=== PATIENT | female | born 1965 | race Caucasian/White ===

== ENCOUNTER 2021-01-10 21:48 | Inpatient (IN) ==
[~2021-01-10 21:48] MED LIST: SODIUM CHLORIDE 0.9% 1000ML 1,000 ML IV SCH
[2021-01-10] MEDS ORDERED: MIDAZOLAM HCL 1 MG/ML 2ML VIAL ONE (21:53)
[2021-01-10] MEDS ORDERED: HEPARIN (PORCINE) 1000 UNIT/ML 10 ML (CATH LAB USE ONLY) ONE ×2 (21:53→22:32)
[2021-01-10] MEDS ORDERED: niCARdipine HCL INJ 2.5 MG/ML 10 ML AMP ONE (21:53)
[2021-01-10] MEDS ORDERED: fentaNYL citrate 100 MCG/2 ML VIAL ONE ×2 (21:53)
[2021-01-10] MEDS ORDERED: NITROGLYCERIN/D5W 100MCG/ML 20ML SYR ONE (21:53)
[2021-01-10] MEDS ORDERED: fentaNYL citrate 100 MCG/2 ML VIAL IV STA (21:54)
[2021-01-10] MEDS ORDERED: SODIUM CHLORIDE 0.9% 1000ML 1,000 ML IV ONE (21:54)
[2021-01-10] MEDS ORDERED: DOPamine 400MG / 250ML D5W (Cath Lab Use ONLY) ONE (22:07)
[2021-01-10] MEDS ORDERED: ATROPINE SULFATE 0.1 MG/ML 10ML SYR IV ONE (22:07)
--- NOTE | 2021-01-10 22:08 | Pre Anesthesia Assessment ---
Date of Service January 10, 2021 Pre Sedation Assessment Vital Signs Temp Pulse Resp BP Pulse Ox 01/10/21 21:54 97.5 F L 44 L 18 98/76 L 100 Cardiovascular RRR, no murmur, no edema Respiratory normal respiratory effort, lungs clear to auscultation Pre-Sedation Airway Assessment Smoking Status: Current every day smoker Hx Sleep Apnea: No Hx Difficult Intubation: No Short, Thick Neck: No Thyromental Distance: > or= 3.5 Finger Breadths Oral Cavity: + WNL Mallampati Class: III ASA: ASA3 Procedure Planning Contraindications for Sedation: none Current Medications Reviewed: Yes Notes The planned sedation has been discussed with the patient. Informed Consent was obtained. I have identified the patient, determined the appropriateness of sedation and have assessed the patient immediately prior to the procedure. All medicine(s) and interventions are by my order.
[2021-01-10 22:10] LABS: Basophils # (auto) 0.02 K/uL (0-0.2); Basophils % (auto) 0.2 %; Eosinophils % (auto) 1.1 %; Hematocrit (blood only) 35.4 % (37-47); Hemoglobin 11.7 g/dL (12.0-16.0); Immature Granulocytes # (auto) 0.02 K/uL (0.00-0.02); Immature Granulocytes % (auto) 0.2 %; Lymphocytes # (auto) 2.99 K/uL (1.2-3.4); Lymphocytes % (auto) 32.5 %; Mean Corpuscular Hgb Conc 33.1 g/dL (32-36); Mean Corpuscular Volume 96.7 fL (80-100); Mean Platelet Volume 9.6 fL (7.4-10.4); Monocytes # (auto) 0.88 K/uL (0.11-0.59); Monocytes % (auto) 9.6 %; Neutrophils % (auto) 56.4 %; Platelet Count 204 K/uL (130-400); RDW Coefficient of Variation 13.6 % (11.5-14.5); RDW Standard Deviation 48.1 fL (36.4-46.3); Red Blood Count 3.66 M/uL (4.2-5.4); White Blood Count 9.21 K/uL (4.8-10.8)
[2021-01-10 22:11] LABS: iSTAT Creatinine 0.7 mg/dl (0.6-1.3); iSTAT Hemoglobin 11.9 g/dl (12.0-16.0); iSTAT Ionized Calcium 1.22 mmol/l (1.12-1.32); iSTAT Potassium 3.6 mmol/L (3.3-5.0)
--- NOTE | 2021-01-10 22:11 | Cardiology Consultation ---
Date of Consultation January 10, 2021 Assessment & Plan (1) ACS (acute coronary syndrome): Presentation consistent with inferior STEMI and recommend proceeding with emergent cardiac catheterization and likely primary PCI. No apparent contraindications to procedure. Discussed risks, benefits, alternatives of procedure with patient and they are willing to proceed. Further recommendations pending findings of coronary angiography. History of Present Illness History of Present Illness 55-year-old woman here with acute chest pain and ECG concerning for acute PA. Patient seen emergently in the ED after heart alert activated en route. No prior cardiac history. Cardiac risk factors include dyslipidemia, hypertension, ongoing tobacco abuse. Other medical issues include GERD, neuropathic pain. Reports feeling unwell for short periods of time over the last several nights. Tonight approximately 2 hours prior to presentation developed chest pain, diaphoresis, nausea, headache and generally feeling unwell. ECG with EMS showed sinus bradycardia with inferior ST elevations. When seen in the ED, EKG continue to show inferior ST elevations. Hemodynamically stable but bradycardic to the 40s. In severe pain with difficulty answering questions after fentanyl. Allergies Allergy/AdvReac Type Severity Reaction Status Date / Time [id number] Allergy Mild Uncoded 04/10/06 15:39 Home Medications Medication Instructions Recorded Confirmed Type amlodipine 10 mg PO DAILY 01/10/21 01/10/21 History duloxetine 60 mg PO BID 01/10/21 01/10/21 History gabapentin 300 mg PO TID 01/10/21 01/10/21 History methocarbamol 750 mg PO TID PRN 01/10/21 01/10/21 History oxycodone-acetaminophen 1 tab PO TID PRN 01/10/21 01/10/21 History pantoprazole 40 mg PO DAILY 01/10/21 01/10/21 History rosuvastatin 20 mg PO DAILY 01/10/21 01/10/21 History sumatriptan succinate 100 mg PO BID PRN 01/10/21 01/10/21 History tizanidine 4 mg PO TID PRN 01/10/21 01/10/21 History Patient History Social History Smoking Status: Current every day smoker Feels Safe at Home: Yes Review of Systems Review of Systems: Unable to obtain the setting of emergent situation Physical Exam Physical Exam: General: Uncomfortable HEENT: Sclerae anicteric Lungs: Clear to auscultation Cardiac: Regular rate Abdomen: Soft, nontender Extremities: Warm, well perfused, no edema. 2+ radial pulses Neuro: Nonfocal Psych: Alert orient x3, normal affect and mood Results & Data ([facility]) Vital Signs (Past 12 Hours) Vital Signs Temp Pulse Resp BP Pulse Ox 01/10/21 21:54 97.5 F L 44 L 18 98/76 L 100 PG Care Time/CCT Total # of Minutes Spent Total Time Spent with Patient: Total time spent is greater than 50% in coordination of care (as documented) at patient's floor/unit and/or counseling patient: Coding Level of Care Code 64472 Inpt Consult Level 5 Diagnoses ACS (acute coronary syndrome) I24.9
[2021-01-10 22:22] LABS: Partial Thromboplastin Ratio 0.8; Partial Thromboplastin Time 22.1 Seconds (21.0-31.0); Prothrombin Time 9.8 Seconds (9.0-12.0)
[2021-01-10 22:28] LABS: Alanine Aminotransferase 47 U/L (12-78); Albumin Level 3.4 gm/dl (3.4-5.0); Aspartate Aminotransferase 39 U/L (15-37); Blood Urea Nitrogen 15 mg/dl (7-18); Calcium 8.8 mg/dl (8.5-10.1); Carbon Dioxide 28 mmol/L (21-32); Chloride 107 mmol/L (98-107); Creatinine Clr Calc Pharmacy 93.9 ml/min; Est GFR (African American) 109.6; Est GFR (Non-African American) 94.6; Glucose 148 mg/dl (70-99); Lipase 54 U/L (73-393); Magnesium 2.3 mg/dl (1.8-2.4); Potassium 3.6 mmol/L (3.5-5.1); Sodium 141 mmol/L (136-145)
[2021-01-10 22:39] LABS: Albumin Globulin Ratio 1.2 (0.9-2); Alkaline Phosphatase 108 U/L (45-117); Bilirubin,Total 0.3 mg/dl (0.2-1); Creatine Kinase 88 U/L (26-192); Creatine Kinase MB 1.3 ng/ml (0.5-3.6); Globulin 2.8 gm/dl (2.5-4.0); Total Protein 6.2 gm/dl (6.4-8.2); Troponin I < 0.015 ng/ml (0-0.045)
[2021-01-10] MEDS ORDERED: TICAGRELOR 90 MG TAB PO ONE (22:40)
[2021-01-10] MEDS ORDERED: ONDANSETRON INJ 2 MG/ML 2 ML VIAL IV PRN (22:51)
[2021-01-10] MEDS ORDERED: ACETAMINOPHEN 325 MG TAB PO PRN (22:51)
[2021-01-10 22:53] LABS: T4 Free Thyroxine 0.74 ng/dl (0.8-1.6)
[2021-01-10] MEDS ORDERED: ICU PROTOCOL FOR HYPERGLYCEMIA PRN (22:56)
[2021-01-10] MEDS ORDERED: SODIUM CHLORIDE 0.9% 1000ML 1,000 ML IV SCH (23:00)
--- NOTE | 2021-01-10 23:02 | Post Anesthesia Assessment ---
Date of Service January 10, 2021 Post Sedation Assessment Vital Signs Temp Pulse Resp BP Pulse Ox 01/10/21 21:54 97.5 F L 44 L 18 98/76 L 100 Recovery Score Activity: Moves 4 extremities Respiration: Deep Breath/Cough Circulation: +/-20% PreAnes Value Consciousness: Fully Awake Oxygen Saturation: O2 needed for >90% Discharge Sedation Level of Care: Fast Track Phase II Post Sedation Plan On clinical assessment, the patient appears to have tolerated the sedation without complications. Patient is recovering as anticipated. Patient will continue to be monitored by nursing and may be discharged when sedation discharge criteria are met per below protocol. Upon Completions of procedure up to 15 minutes continue every 5 minute vital signs and the P.A.R. score; then discharge to a Phase I or Fast Track to Phase II per the following guidelines: * Discharge Patient to appropriate Phase II area if PAR is 8 or greater or return to pre- procedure baseline. The post - procedure orders will be as directed. * If PAR score is less than 8 or not return to pre-procedure baseline then patient will follow Phase I monitoring till PAR is reached for Phase II. The Phase I may be done in procedure room or may call to secure a Phase I area. * If naloxone or flumazenil are used for reversal, hold in Phase I for continued monitoring from when last reversal dose was given for a minimum of 60 minutes or longer pending the nurse and/or physician discretion of patient condition before discharge to Phase II. Please call the Sedation Physician to re-evaluate and complete post-note for discharge to Phase II area. Do NOT discharge from procedure sedation or Phase 1 until post- sedation evaluation note is complete by procedure /sedation MD Sedation Discharge Instructions to be given to the patient at discharge to home.
[2021-01-10 23:14] LABS: Influenza A virus by PCR Negative (Neg); Influenza B virus by PCR Negative (Neg); RSV by PCR Negative (Neg); SARS CoV2 RNA(COVID-19) InHosp NEGATIVE (Negative)
--- NOTE | 2021-01-10 23:16 | Cardiac Catheterization ---
[facility] Data: Plasterer Spray Gun Cardiac Status Clinical evaluation leading to the procedure CAD Presenation: STEMI Anginal Classification: CCS IV Heart Failure: No Cardiogenic Shock within 24 Hours: No Cardiac Arrest within 24 Hours: No Imaging Studies Past 6 Months: No Stress Studies Past 6 Months: No Diagnostic Physicians Name: Frank Merino MD Status: Emergency Closure Device Percutaneous Entry Location: Radial Closure Device: Radial Band Recommendations: PCI without planned CABG PCI Indication: Immediate PCI for STEMI First Noted: First EKG Lesion Segment Name: Mid RCA Culprit Artery: Yes Stenosis Prior to Rx (%): 99 Chronic Total Occlusion: No IVUS: No FFR: No Pre-Procedure THOMAS Flow: 3 Previously Treated Lesion: No Lesion Complexity: Non-High/Non-C Lesion Length (mm): 15 Thrombus Present: Yes Bifurcation Lesion: No Guidewire Across Lesion: Stenosis Post-Procedure (%): 0 Post-Procedure THOMAS Flow: 3 Devices(s) Deployed: Yes Yes Intraprocedure Events Significant Disection: No Perforation: No Cardiac Cath Procedure Full Procedure Date January 10, 2021 Pre-Procedure Diagnosis Pre-Procedure Diagnosis: STEMI AUC Score AUC Score: 9 Post-Procedure Diagnosis Post-Procedure Diagnosis: Severe CAD, Successful PCI and Normal Intracardiac Pressures Procedure(s) Performed Procedure(s) Performed: Coronary Angiography, Left Heart Cath and Drug Eluting Stent [employer] Defense Control Officer Frank Merino MD In Class Special Education Teacher(s) Jennifer Estimated Blood Loss Estimated Blood Loss: 10 Medication(s) Medication(s): Atropine, Fentanyl, Heparin, Hydralazine, Lidocaine 1%, Nicardipine and Versed Medication(s): Ticagrelor Summary of Findings Indication: STEMI/Heart Alert Access: 6 Fr right radial artery Catheters: Godfrey, JL 3.5 guide Findings: LM -medium caliber, mildly calcified, no significant disease LAD -medium caliber, heavily calcified proximally, 60 to 70% ostial, 30% diffuse proximal disease, 50% mid segment disease after takeoff of D2, distal vessel small and tapers to apex. Medium caliber D2 with 70% ostial stenosis. Circumflex -medium caliber calcified, diffuse 50% mid segment disease. Gives of a single medium caliber OM with no significant disease. RCA -dominant, medium caliber, heavily calcified, 99% acute mid RCA stenosis, 30% diffuse latemid disease, 40 to 50% right posterior AV branch. PDA with 30% ostial stenosis. LVEDP -17 -- PCI -- Antithrombotic therapy: Heparin, ticagrelor Procedure: RCA cannulated with JR4 guide Nipple Machine Operator 50 wire passed across lesion into distal vessel Mid RCA lesion predilated with 2.5 compliant balloon Dilated lesion stented with 3.0 x 26 mm Costa drug-eluting Stent post-dilated with 3.5 noncompliant balloon IC vasodilators administered for spasm Post procedure THOMAS 3 flow, stent well expanded with minimal residual stenosis and no apparent cardiac complications. Arterial Closure: TR band Summary: 1. Inferior STEMI -- 99% acute mid RCA 2. Moderate to severe non-culprit coronary artery disease -60 to 70% ostial LAD, 50% mid LAD, 70% ostial D2 50% mid circumflex 40% R-PAV branch 3. Normal intracardiac filling pressure 4. Successful PCI of mid RCA with single drug-eluting stent (3.0 x 26 mm Costa; postdilated with 3.5 NC). Recommendations: Admit to ICU for continued monitoring Loaded with ticagrelor 180 mg in Plasterer Spray Gun Continue dual-antiplatelet therapy for at least 1 year. Trend troponins until peak, Check Echo Uptitrate beta-arina/CLAIRE as BP allows High-dose statin Consult cardiac Rehab Smoking cessation Plan to medically manage heavily calcified ostial LAD disease unless refractory anginal symptoms. Hemodynamics Rest Ao:: 141/83/100 Final Ao: 138/79/104 LV: 145/17 Recommendations Recommendations: PCI without planned CABG Specimens Specimens: None Radiation Exposure (mGy) 760 Contrast (mls) 90 Fluids (cc crystalloids) Fluids (cc crystalloids): 60 Drains Drains: None Anesthesia Moderate [id number] Procedural Complication(s) None Disposition ICU I attest to the content of the Intraoperative Record and any orders documented therein. Any exceptions are noted below. [facility] Card Cath Procedure Codes Cardiac Catheterization Procedure 1: Cardiovascular Cath Procedures: 85620 Coronaries and LHC (+/-LV) Moderate Sedation Procedure 1: Sedation/Anesthesia: 08408 Mod Sedation by the same physician;Init15 Min Child Age 5 & Up Stenting Procedure 1: Cardiovascular Stent Procedures: 15019 Perc transluminal revascularization of acute sub/total occl, aMI PG Care Time/CCT Total # of Minutes Spent Total Time Spent with Patient: Total time spent is greater than 50% in coordination of care (as documented) at patient's floor/unit and/or counseling patient:
--- NOTE | 2021-01-10 23:23 | Critical Care Consultation ---
Date of Consultation January 10, 2021 Assessment & Plan (1) ACS (acute coronary syndrome): Impression: 55-year-old female presents to the ICU following inferior STEMI with 99% occlusion of the RCA, now status post PCI x1 with PCI to the RCA Neuro - Neuropathycontinue home meds Cardiac - Inferior STEMIstatus post PCI x1 with JETT to the RCA. Moderate to severe nonculprit coronary artery disease noted on cath report -Loaded with ticagrelor 580 mg in Office Clin Asst -Currently hemodynamically stable without need for vasopressors -Continue ASA, Brilinta, MTP, lisinopril, statin regimens -Trend troponins for peak -Follow-up echo in a.m. -EKG in a.m. -Nitro as needed -Continuous monitoring on telemetry Respiratory - Tobacco abusepatient claims to smoke 5 to 10 cigarettes/day since she was 13 years old, encouraged cessation -No diagnosed history of COPD -Currently maintaining oxygen saturation on room air without difficulty -Continuous monitoring pulse ox GI - GERD?Continue home regimen pantoprazole daily Heart healthy diet RENAL/LYTES - Creatinine within normal limits, monitor electrolytes and replete as indicated. Monitor routine BMPs - Strict I's and O's ENDO - No history of diabetes, A1c pending. ICU hyperglycemic protocol Hypothyroidpatient presents with elevated TSH and low T4. No previous history of hypothyroid. Will likely need start on Synthroid HEME - H&H stable, monitor routine CBCs ID - No evidence of infectious at this time. Monitor fever curve LINES/IV ACCESS - Peripheral IVs DVT PROPHYLAXIS - SCDs Thank you for allowing us to participate in the care of this patient. Please refer to my attending physician's documentation for any further recommendations. (2) Chest pain: (3) Dyslipidemia: (4) Coronary artery disease: (5) Hypertension: (6) Neuropathy: History of Present Illness Attending Physician: Jame Barajas MD History of Present Illness 55-year-old female with PMH including hypertension, dyslipidemia, tobacco abuse, GERD, neuropathic pain. Patient states that she had not been feeling well for the past few days and approximately 2 hours prior to presentation to the ED she had developed chest pain with radiation to the left arm 10/10, diaphoresis, and headache. Patient called 911 and EKG in route revealed ST elevations. Heart alert was initiated in route. EKG showed inferior ST elevations and patient was bradycardic with heart rate in the 40s. She was taken to the Office Clin Asst where she was found to have 99% acute occlusion of the mid RCA, and was also noted to have moderate to severe nonculprit coronary artery disease in the LAD, mid circumflex, and RPAV branch. She received successful PCI of the mid RCA with a single drug-eluting stent. Patient is now transferred to the ICU for further monitoring post-cath. On exam, patient is alert and oriented and comfortable at rest. She denies any chest pain, shortness of breath, palpitations, further diaphoresis, nausea or vomiting. Patient states that she was having some numbness and tingling in her right hand but this is currently resolved. She denies headache or dizziness, recent fevers or illness, coughing or wheezing, abdominal pain, or swelling in hands and feet. Patient to remain in ICU for further management this time. Allergies Allergy/AdvReac Type Severity Reaction Status Date / Time [id number] Allergy Mild Uncoded 04/10/06 15:39 Home Medications Medication Instructions Recorded Confirmed Type amlodipine 10 mg PO DAILY 01/10/21 01/10/21 History duloxetine 60 mg PO BID 01/10/21 01/10/21 History gabapentin 300 mg PO TID 01/10/21 01/10/21 History methocarbamol 750 mg PO TID PRN 01/10/21 01/10/21 History oxycodone-acetaminophen 1 tab PO TID PRN 01/10/21 01/10/21 History pantoprazole 40 mg PO DAILY 01/10/21 01/10/21 History rosuvastatin 20 mg PO DAILY 01/10/21 01/10/21 History sumatriptan succinate 100 mg PO BID PRN 01/10/21 01/10/21 History tizanidine 4 mg PO TID PRN 01/10/21 01/10/21 History Patient History Medical History (Updated 01/11/21 @ 00:54 by Jame Flores) Dyslipidemia Hypertension Surgical History (Updated 01/11/21 @ 00:54 by Jame Flores) History of cholecystectomy History of hysterectomy Family History (Updated 01/11/21 @ 00:54 by Jame Flores) Other Hypertension Social History Smoking Status: Current every day smoker Cigarettes Per Day: 7; Do You Dip or Chew Tobacco: No; Tobacco Cessation Education Requested by Patient: Yes Hx Alcohol Use: No Hx Substance Use: No Preferred Language: Yakut Communication Ability: Effective Beliefs That Will Affect Care: None Current Living Situation: Spouse Other Information That Helps Us Care for You: No Feels Safe at Home: Yes Safety Concerns: Feels Safe At This Time Assistive Devices: Denture - Upper and Glasses Review of Systems Review of Systems: All systems reviewed & are unremarkable except as noted in HPI & below Physical Exam Constitutional: cooperative and comfortable Eyes: PERRL, conjunctivae normal, anicteric sclerae ENMT: external ear and nose normal, oropharynx normal Neck: trachea midline, no thyromegaly Respiratory: normal respiratory effort, lungs clear to auscultation Cardiovascular: RRR, no murmur, no edema Heart Sounds: normal S1 and normal S2 Vessels: no JVD Extremities: no edema Gastrointestinal (Abdomen): normal bowel sounds, soft, nontender, no hepatosplenomegaly Musculoskeletal: no cyanosis or clubbing, extremities motor strength 5/5 Skin: no rashes, warm and dry Neurologic: PERRL, EOMI, accommodation nl, no face palsy, no dysarthria Psychiatric: A+Ox3, euthymic affect Results & Data Results & Data ([facility]) Vital Signs (Past 12 Hours) Vital Signs Temp Pulse Resp BP Pulse Ox 01/10/21 23:11 36.5 C 01/10/21 21:54 36.4 C L 44 L 18 98/76 L 100 Coding Level of Care Code 68352 Inpt Consult Level 4 Diagnoses ACS (acute coronary syndrome) I24.9 Chest pain R07.9 Dyslipidemia E78.5 Coronary artery disease I25.10 Hypertension I10 Neuropathy G62.9
[2021-01-11] MEDS ORDERED: INFLUENZA ADMINISTRATION CHARGE ONE (00:09)
[2021-01-11] MEDS ORDERED: POTASSIUM CHLORIDE CRTAB 20 MEQ TABCR PO STA (00:45)
--- NOTE | 2021-01-11 00:47 | Emergency Department Note ---
History of Present Illness General Chief Complaint: Heart Alert History of Present Illness Provider Complaint: chest pain Onset (ago): hour(s) 2 Duration: constant Onset: during rest Pain Location: substernal Pain Radiation: none Severity: severe Maximum Pain Intensity: 10 Current Pain Intensity: 10 Quality: + heaviness Relieved By: + nothing Exacerbated By: + nothing Context: no recent illness, no recent surgery, no recent immobilization, no recent travel, no trauma/injury and no history of DVT/PE Associated symptoms: + diaphoresis and + dyspnea; no nausea, no vomiting, no palpitations, no fever and no leg swelling Home Medications Medication Instructions Recorded Confirmed Type amlodipine 10 mg PO DAILY 01/10/21 01/10/21 History duloxetine 60 mg PO BID 01/10/21 01/10/21 History gabapentin 300 mg PO TID 01/10/21 01/10/21 History methocarbamol 750 mg PO TID PRN 01/10/21 01/10/21 History oxycodone-acetaminophen 1 tab PO TID PRN 01/10/21 01/10/21 History pantoprazole 40 mg PO DAILY 01/10/21 01/10/21 History rosuvastatin 20 mg PO DAILY 01/10/21 01/10/21 History sumatriptan succinate 100 mg PO BID PRN 01/10/21 01/10/21 History tizanidine 4 mg PO TID PRN 01/10/21 01/10/21 History Allergies Allergy/AdvReac Type Severity Reaction Status Date / Time [id number] Allergy Mild Uncoded 04/10/06 15:39 Past Med/Surg History Medical History (Updated 01/11/21 @ 00:54 by Jame Flores) Dyslipidemia Hypertension Surgical History (Updated 01/11/21 @ 00:54 by Jame Flores) History of cholecystectomy History of hysterectomy Family History (Updated 01/11/21 @ 00:54 by Jame Flores) Other Hypertension Social History Smoking Status: Current every day smoker Cigarettes Per Day: 7; Do You Dip or Chew Tobacco: No; Tobacco Cessation Education Requested by Patient: Yes Hx Alcohol Use: No Hx Substance Use: No Preferred Language: [place] Communication Ability: Effective Beliefs That Will Affect Care: None Current Living Situation: Spouse Other Information That Helps Us Care for You: No Feels Safe at Home: Yes Safety Concerns: Feels Safe At This Time Assistive Devices: Denture - Upper and Glasses Review of Systems A total of 10 systems reviewed and were otherwise negative Physical Exam Vital Signs Vital Signs - 24 hr 01/10/21 21:54 01/10/21 22:01 01/10/21 22:02 Temperature 36.4 C L Temperature Source Oral Pulse Rate 44 L Respiratory Rate 18 Respiratory Effort / Characteristics Non-Labored Respiratory Depth Normal Blood Pressure 98/76 L Blood Pressure Mean 83 Pulse Oximetry 100 Oxygen Delivery Method Room Air Room Air Room Air Sepsis Recent Fever Within 48 Hours No Sepsis New/Unexplained Change in Mental Status No Sepsis Action Taken by Nursing No Action Required Physical Exam GENERAL: Distressed. HENT: Exam performed. -Head: Normocephalic and atraumatic. -Right Ear: External ear normal. No mastoid tenderness. -Left Ear: External ear normal. No mastoid tenderness. -Mouth/Throat: The oropharynx is clear and moist. No trismus in the jaw. No dental abscesses or uvula swelling. No oropharyngeal exudate or tonsillar abscesses. EYES: Conjunctivae and EOM are normal. Pupils are equal, round, and reactive to light. Right eye exhibits no discharge. Left eye exhibits no discharge. No scleral icterus. NECK: Normal range of motion. Neck supple. No JVD present. No spinous process tenderness present. No carotid bruit present. No rigidity. No tracheal deviation and normal range of motion present. No Brudzinski's sign and no Kernig's sign noted. CV: Bradycardic rate, regular rhythm, normal heart sounds and intact distal pulses. There is no peripheral edema. Palpable radial pulses bue. PULM/CHEST: Effort normal and breath sounds normal. No respiratory distress. No stridor. She has no wheezes. She has no rales. -Chest Wall: She exhibits no tenderness. ABD: The abdomen is soft. Bowel sounds are normal. She has no distension. No mass is present. There is no tenderness. There is no rebound, no guarding, no Oconnor's sign and no tenderness at McBurney's point. Rovsig negative MUSC/SKEL: Normal range of motion. There is no peripheral edema, tenderness or deformity. Course Course 2129: Call from EMS. 55-year-old female with chest pain. Prehospital EKG showed STEMI. Heart alert paged. 2150: The patient was evaluated in room B1. A complete history and physical exam was performed Cardiac monitoring: An order was placed for continuous cardiac monitoring. The monitor shows a rate of 40 with sinus rhythm 2205:Dr. Merino at bedside will take the patient to [facility]. Administered Medications Sodium Chloride (Nss 1000ml) 1,000 mls @ 100 mls/hr IV .Q10H ANNIE Stop: 01/11/21 06:29 Last Admin: 01/10/21 23:45 Dose: 100 mls/hr Documented by: [id number] Discontinued Medications Atropine Sulfate (Atropine Sulfate 0.1 Mg/Ml 10ml Syr) Confirm Administered Dose 1 mg IV .STK-MED ONE Stop: 01/10/21 22:08 Last Admin: 01/10/21 22:31 Dose: 0.5 mg Documented by: [id number] Dopamine HCl/Dextrose (Dopamine 400mg / 250ml D5w ([facility] Use Only)) Confirm Administered Dose 400 mg .ROUTE .STK-MED ONE Stop: 01/10/21 22:08 Last Admin: 01/10/21 22:31 Dose: Not Given Documented by: [id number] Fentanyl Citrate (Fentanyl Citrate 100 Mcg/2 Ml Vial) Confirm Administered Dose 100 mcg .ROUTE .STK-MED ONE Stop: 01/10/21 21:54 Last Admin: 01/10/21 22:36 Dose: 25 mcg Documented by: [id number] Fentanyl Citrate (Fentanyl Citrate 100 Mcg/2 Ml Vial) Confirm Administered Dose 100 mcg .ROUTE .STK-MED ONE Stop: 01/10/21 21:54 Last Admin: 01/10/21 22:36 Dose: Not Given Documented by: [id number] Fentanyl Citrate (Fentanyl Citrate 100 Mcg/2 Ml Vial) 50 mcg IV NOW STA Stop: 01/10/21 21:55 Last Admin: 01/10/21 23:45 Dose: Not Given Documented by: [id number] Heparin Sodium (Porcine) (Heparin (Porcine) 1000 Unit/Ml 10 Ml ([facility] Use Only)) Confirm Administered Dose 10,000 units .ROUTE .STK-MED ONE Stop: 01/10/21 21:54 Last Admin: 01/10/21 22:36 Dose: 10,000 units Documented by: [id number] Heparin Sodium (Porcine) (Heparin (Porcine) 1000 Unit/Ml 10 Ml ([facility] Use Only)) Confirm Administered Dose 10,000 units .ROUTE .STK-MED ONE Stop: 01/10/21 22:33 Last Admin: 01/10/21 22:37 Dose: 1,000 units Documented by: [id number] Heparin Sodium/Sodium Chloride (Heparin In Nss Infusion 1000 Unit/500 Ml (2 U/Ml) Bag) Confirm Administered Dose 3,000 units IV .STK-MED ONE Stop: 01/10/21 21:54 Last Admin: 01/10/21 22:29 Dose: 3,000 units Documented by: [id number] Sodium Chloride (Nss 1000ml) 1,000 mls @ 999 mls/hr IV .Q1H1M ANNIE Stop: 01/10/21 22:45 Last Admin: 01/10/21 23:45 Dose: Not Given Documented by: [id number] Sodium Chloride (Nss 1000ml) 1,000 mls @ 999 mls/hr IV .Q1H1M ONE Stop: 01/10/21 22:54 Last Admin: 01/10/21 23:45 Dose: Not Given Documented by: [id number] Midazolam HCl (Midazolam Hcl 1 Mg/Ml 2ml Vial) Confirm Administered Dose 2 mg .ROUTE .STK-MED ONE Stop: 01/10/21 21:54 Last Admin: 01/10/21 22:37 Dose: Not Given Documented by: [id number] Nicardipine HCl (Nicardipine Hcl Inj 2.5 Mg/Ml 10 Ml Amp) Confirm Administered Dose 25 mg .ROUTE .STK-MED ONE Stop: 01/10/21 21:54 Last Admin: 01/10/21 22:29 Dose: 25 mg Documented by: [id number] Nitroglycerin/Dextrose (Nitroglycerin/D5w 100mcg/Ml 20ml Syr) Confirm Administered Dose 2,000 mcg .ROUTE .STK-MED ONE Stop: 01/10/21 21:54 Last Admin: 01/10/21 22:30 Dose: 2,000 mcg Documented by: [id number] Ticagrelor (Ticagrelor 90 Mg Tab) Confirm Administered Dose 180 mg PO .STK-MED ONE Stop: 01/10/21 22:41 Last Admin: 01/10/21 22:41 Dose: 180 mg Documented by: [id number] Medical Decision Making Laboratory Data Result diagrams: 01/10/21 21:56 01/10/21 21:56 Labs: Lab Results 01/10/21 01/10/21 01/10/21 Range/Units 21:52 21:52 21:56 WBC 9.21 (4.8-10.8) K/uL RBC 3.66 L (4.2-5.4) M/uL Hgb 11.7 L (12.0-16.0) g/dL POC Hgb (12.0-16.0) g/dl Hct 35.4 L (37-47) % POC Hct (37-47) % MCV 96.7 (80-100) fL MCH 32.0 (25-34) pg MCHC 33.1 (32-36) g/dL RDW Std Deviation 48.1 H (36.4-46.3) fL RDW Coeff of Evan 13.6 (11.5-14.5) % Plt Count 204 (130-400) K/uL MPV 9.6 (7.4-10.4) fL Immature Gran % (Auto) 0.2 % Neut % (Auto) 56.4 % Lymph % (Auto) 32.5 % [place] % (Auto) 9.6 % Eos % (Auto) 1.1 % Baso % (Auto) 0.2 % Neut # (Auto) 5.20 (1.4-6.5) K/uL Lymph # (Auto) 2.99 (1.2-3.4) K/uL [place] # (Auto) 0.88 H (0.11-0.59) K/uL Eos # (Auto) 0.10 (0-0.5) K/uL Baso # (Auto) 0.02 (0-0.2) K/uL Immature Gran # (Auto) 0.02 (0.00-0.02) K/uL PT (9.0-12.0) Seconds INR (0.9-1.1) APTT (21.0-31.0) Seconds PTT Ratio Activ Coag Time Kaolin (94-140) SECONDS POC Sodium (135-144) mmol/L Sodium (136-145) mmol/L POC Potassium (3.3-5.0) mmol/L Potassium (3.5-5.1) mmol/L POC Chloride (101-112) mmol/L Chloride (98-107) mmol/L Carbon Dioxide (21-32) mmol/L POC Total CO2 (24-31) mmol/L Anion Gap (3-11) POC Anion Gap (16-25) mmol/L POC BUN (7-18) mg/dl BUN (7-18) mg/dl Creatinine (0.6-1.2) mg/dl POC Creatinine (0.6-1.3) mg/dl Est Cr Clr Drug Dosing ml/min Est GFR ( Amer) Est GFR (Non-Af Amer) BUN/Creatinine Ratio (10-20) Glucose (70-99) mg/dl POC Glucose (other) (70-99) mg/dl Calcium (8.5-10.1) mg/dl POC Ioniz Calcium Brittany (1.12-1.32) mmol/l Magnesium (1.8-2.4) mg/dl Total Bilirubin (0.2-1) mg/dl AST (15-37) U/L ALT (12-78) U/L Alkaline Phosphatase (45-117) U/L Total Creatine Kinase (26-192) U/L CK-MB (CK-2) (0.5-3.6) ng/ml CK/CKMB % Calc (0-3.0) Troponin I (0-0.045) ng/ml Total Protein (6.4-8.2) gm/dl Albumin (3.4-5.0) gm/dl Globulin (2.5-4.0) gm/dl Albumin/Globulin Ratio (0.9-2) Lipase (73-393) U/L TSH (0.300-4.500) uIu/ml Free T4 (0.8-1.6) ng/dl COVID-19 Eval Order [facility]Rsv at [facility] SARS-CoV-2 (PCR) NEGATIVE (Negative) Influenza Type A (PCR) Negative (Neg) Influenza Type B (PCR) Negative (Neg) RSV (RT-PCR) Negative (Neg) 01/10/21 01/10/21 01/10/21 Range/Units 21:56 21:56 21:59 WBC (4.8-10.8) K/uL RBC (4.2-5.4) M/uL Hgb (12.0-16.0) g/dL POC Hgb 11.9 L (12.0-16.0) g/dl Hct (37-47) % POC Hct 35 L (37-47) % MCV (80-100) fL MCH (25-34) pg MCHC (32-36) g/dL RDW Std Deviation (36.4-46.3) fL RDW Coeff of Evan (11.5-14.5) % Plt Count (130-400) K/uL MPV (7.4-10.4) fL Immature Gran % (Auto) % Neut % (Auto) % Lymph % (Auto) % [place] % (Auto) % Eos % (Auto) % Baso % (Auto) % Neut # (Auto) (1.4-6.5) K/uL Lymph # (Auto) (1.2-3.4) K/uL [place] # (Auto) (0.11-0.59) K/uL Eos # (Auto) (0-0.5) K/uL Baso # (Auto) (0-0.2) K/uL Immature Gran # (Auto) (0.00-0.02) K/uL PT 9.8 (9.0-12.0) Seconds INR 1.0 (0.9-1.1) APTT 22.1 (21.0-31.0) Seconds PTT Ratio 0.8 Activ Coag Time Kaolin (94-140) SECONDS POC Sodium 140 (135-144) mmol/L Sodium 141 (136-145) mmol/L POC Potassium 3.6 (3.3-5.0) mmol/L Potassium 3.6 (3.5-5.1) mmol/L POC Chloride 103 (101-112) mmol/L Chloride 107 (98-107) mmol/L Carbon Dioxide 28 (21-32) mmol/L POC Total CO2 28 (24-31) mmol/L Anion Gap 5.0 (3-11) POC Anion Gap 14.0 L (16-25) mmol/L POC BUN 15 (7-18) mg/dl BUN 15 (7-18) mg/dl Creatinine 0.71 (0.6-1.2) mg/dl POC Creatinine 0.7 (0.6-1.3) mg/dl Est Cr Clr Drug Dosing 93.9 ml/min Est GFR ( Amer) 109.6 Est GFR (Non-Af Amer) 94.6 BUN/Creatinine Ratio 21.0 H (10-20) Glucose 148 H (70-99) mg/dl POC Glucose (other) 148 H (70-99) mg/dl Calcium 8.8 (8.5-10.1) mg/dl POC Ioniz Calcium Brittany 1.22 (1.12-1.32) mmol/l Magnesium 2.3 (1.8-2.4) mg/dl Total Bilirubin 0.3 (0.2-1) mg/dl AST 39 H (15-37) U/L ALT 47 (12-78) U/L Alkaline Phosphatase 108 (45-117) U/L Total Creatine Kinase 88 (26-192) U/L CK-MB (CK-2) 1.3 (0.5-3.6) ng/ml CK/CKMB % Calc 1.5 (0-3.0) Troponin I < 0.015 (0-0.045) ng/ml Total Protein 6.2 L (6.4-8.2) gm/dl Albumin 3.4 (3.4-5.0) gm/dl Globulin 2.8 (2.5-4.0) gm/dl Albumin/Globulin Ratio 1.2 (0.9-2) Lipase 54 L (73-393) U/L TSH 4.810 H (0.300-4.500) uIu/ml Free T4 0.74 L (0.8-1.6) ng/dl COVID-19 Eval Order SARS-CoV-2 (PCR) (Negative) Influenza Type A (PCR) (Neg) Influenza Type B (PCR) (Neg) RSV (RT-PCR) (Neg) 01/10/21 Range/Units 22:29 WBC (4.8-10.8) K/uL RBC (4.2-5.4) M/uL Hgb (12.0-16.0) g/dL POC Hgb (12.0-16.0) g/dl Hct (37-47) % POC Hct (37-47) % MCV (80-100) fL MCH (25-34) pg MCHC (32-36) g/dL RDW Std Deviation (36.4-46.3) fL RDW Coeff of Evan (11.5-14.5) % Plt Count (130-400) K/uL MPV (7.4-10.4) fL Immature Gran % (Auto) % Neut % (Auto) % Lymph % (Auto) % [place] % (Auto) % Eos % (Auto) % Baso % (Auto) % Neut # (Auto) (1.4-6.5) K/uL Lymph # (Auto) (1.2-3.4) K/uL [place] # (Auto) (0.11-0.59) K/uL Eos # (Auto) (0-0.5) K/uL Baso # (Auto) (0-0.2) K/uL Immature Gran # (Auto) (0.00-0.02) K/uL PT (9.0-12.0) Seconds INR (0.9-1.1) APTT (21.0-31.0) Seconds PTT Ratio Activ Coag Time Kaolin 219 H (94-140) SECONDS POC Sodium (135-144) mmol/L Sodium (136-145) mmol/L POC Potassium (3.3-5.0) mmol/L Potassium (3.5-5.1) mmol/L POC Chloride (101-112) mmol/L Chloride (98-107) mmol/L Carbon Dioxide (21-32) mmol/L POC Total CO2 (24-31) mmol/L Anion Gap (3-11) POC Anion Gap (16-25) mmol/L POC BUN (7-18) mg/dl BUN (7-18) mg/dl Creatinine (0.6-1.2) mg/dl POC Creatinine (0.6-1.3) mg/dl Est Cr Clr Drug Dosing ml/min Est GFR ( Amer) Est GFR (Non-Af Amer) BUN/Creatinine Ratio (10-20) Glucose (70-99) mg/dl POC Glucose (other) (70-99) mg/dl Calcium (8.5-10.1) mg/dl POC Ioniz Calcium Brittany (1.12-1.32) mmol/l Magnesium (1.8-2.4) mg/dl Total Bilirubin (0.2-1) mg/dl AST (15-37) U/L ALT (12-78) U/L Alkaline Phosphatase (45-117) U/L Total Creatine Kinase (26-192) U/L CK-MB (CK-2) (0.5-3.6) ng/ml CK/CKMB % Calc (0-3.0) Troponin I (0-0.045) ng/ml Total Protein (6.4-8.2) gm/dl Albumin (3.4-5.0) gm/dl Globulin (2.5-4.0) gm/dl Albumin/Globulin Ratio (0.9-2) Lipase (73-393) U/L TSH (0.300-4.500) uIu/ml Free T4 (0.8-1.6) ng/dl COVID-19 Eval Order SARS-CoV-2 (PCR) (Negative) Influenza Type A (PCR) (Neg) Influenza Type B (PCR) (Neg) RSV (RT-PCR) (Neg) ECG Data Indication: chest pain Rate (beats per minute): 44 Rhythm: normal sinus Findings: + ST depression (I, avL, V3-V6) and + ST elevation (II, III, avF); no prolonged QT MDM Narrative 0: Call from EMS. 55-year-old female with chest pain. Prehospital EKG showed STEMI. Heart alert paged. 2150: The patient was evaluated in room B1. A complete history and physical exam was performed Cardiac monitoring: An order was placed for continuous cardiac monitoring. The monitor shows a rate of 40 with sinus rhythm 2205:Dr. Merino at bedside will take the patient to [facility]. Impression & Plan ST elevation (STEMI) myocardial infarction Critical Care Time Critical Care Time: Yes Total Critical Care Time: 35 I have personally spent greater than 35 minutes of critical care time in the direct management of this patient. This includes bedside care, interpretation of diagnostic studies, and testing, discussion with consultants, patient, and family members, and other required patient management activities. This 35 minutes is in excess of all separately billable procedures. Discharge Plan Visit Data Chief Complaint: Heart Alert ED Provider: Jame Flores Discharge Problem: ST elevation (STEMI) myocardial infarction Patient Disposition: Admitted As Inpatient Discharge Instructions Interventions: ED Discharge Assessment Last Done: 01/10/21 22:02
[2021-01-11 01:32] LABS: Appearance Urine Clear (Clear); Bacteria Urine Automated Negative (Negative); Bilirubin Urine Negative (Negative); Blood Urine Trace (Negative); Color Urine Yellow; Glucose Urine UA Negative (Negative); Ketones Urine Negative (Negative); Leukocyte Esterase Urine Negative (Negative); Nitrite Urine Negative (Negative); Protein Urine Negative (Negative); Specific Gravity Urine 1.036 (1.000-1.030); Urobilinogen Urine Negative (Negative); pH Urine 7.5 (4.5-7.5)
[2021-01-11] MEDS: NITROGLYCERIN SL 0.4 MG/TAB TAB SL PRN ×3 (03:38→04:57)
[2021-01-11 04:49] LABS: Basophils # (auto) 0.02 K/uL (0-0.2); Basophils % (auto) 0.2 %; Eosinophils # (auto) 0.03 K/uL (0-0.5); Eosinophils % (auto) 0.4 %; Hematocrit (blood only) 37.3 % (37-47); Hemoglobin 12.3 g/dL (12.0-16.0); Immature Granulocytes # (auto) 0.02 K/uL (0.00-0.02); Immature Granulocytes % (auto) 0.2 %; Lymphocytes # (auto) 2.51 K/uL (1.2-3.4); Lymphocytes % (auto) 30.6 %; Mean Corpuscular Hemoglobin 31.6 pg (25-34); Mean Corpuscular Volume 95.9 fL (80-100); Mean Platelet Volume 9.6 fL (7.4-10.4); Monocytes # (auto) 0.63 K/uL (0.11-0.59); Monocytes % (auto) 7.7 %; Neutrophils % (auto) 60.9 %; Platelet Count 223 K/uL (130-400); RDW Coefficient of Variation 13.5 % (11.5-14.5); RDW Standard Deviation 46.9 fL (36.4-46.3); Red Blood Count 3.89 M/uL (4.2-5.4); White Blood Count 8.21 K/uL (4.8-10.8)
[2021-01-11 05:13] LABS: BUN Creatinine Ratio 24.6 (10-20); Blood Urea Nitrogen 11 mg/dl (7-18); Calcium 8.6 mg/dl (8.5-10.1); Carbon Dioxide 26 mmol/L (21-32); Chloride 111 mmol/L (98-107); Creatinine Clr Calc Pharmacy 136.2 ml/min; Est GFR (Non-African American) 110.4; Glucose 110 mg/dl (70-99); Magnesium 2.2 mg/dl (1.8-2.4); Sodium 142 mmol/L (136-145)
[2021-01-11 05:25] LABS: Chol HDL Ratio 4; Cholesterol 231 mg/dl (0-200); HDL Cholesterol 61 mg/dl; LDL Cholesterol Direct 137 mg/dl; Phosphorus 2.9 mg/dl (2.5-4.9); Triglycerides 152 mg/dl (0-150); VLDL Cholesterol 30 mg/dl
[2021-01-11] MEDS ORDERED: MoRPHine SULFATE 2 MG/ML CARP IV STA (05:39)
[2021-01-11 06:09] LABS: Estimated Average Glucose 126 mg/dl
[2021-01-11] MEDS ORDERED: INFLUENZA VIRUS QUAD VACCINE 0.5 ML SYR IM ONE (08:00)
[2021-01-11] MEDS: GABAPENTIN 300 MG CAP PO SCH ×3 (08:03→21:52)
[2021-01-11] MEDS: ASPIRIN 81 MG ECTAB PO SCH (08:04)
[2021-01-11] MEDS: ROSUVASTATIN CALCIUM 20 MG TAB PO SCH (08:05)
[2021-01-11] MEDS: TICAGRELOR 90 MG TAB PO SCH ×2 (08:05→21:52)
[2021-01-11] MEDS: PANTOprazole 40 MG TAB PO SCH (08:06)
[2021-01-11] MEDS ORDERED: METOPROLOL TARTRATE 25 MG TAB PO SCH (09:00)
[2021-01-11] MEDS ORDERED: PANTOprazole 40 MG TAB PO SCH (09:00)
[2021-01-11] MEDS ORDERED: lisinopril 5 MG TAB PO SCH (09:00)
--- NOTE | 2021-01-11 13:35 | Critical Care Progress Note ---
Date of Service January 11, 2021 Assessment & Plan (1) ACS (acute coronary syndrome): Impression: 55-year-old female presents to the ICU following inferior STEMI with 99% occlusion of the RCA, now status post PCI x1 with PCI to the RCA Neuro - Neuropathycontinue home meds Cardiac - Inferior STEMIstatus post PCI x1 with JETT to the RCA. Moderate to severe nonculprit coronary artery disease noted on cath report -Loaded with ticagrelor 580 mg in [place] -Currently hemodynamically stable without need for vasopressors -Continue ASA, Brilinta, MTP, lisinopril, statin regimens Respiratory - Tobacco abusepatient claims to smoke 5 to 10 cigarettes/day since she was 13 years old, encouraged cessation. She is eager to quit smoking. -No diagnosed history of COPD -Currently maintaining oxygen saturation on room air without difficulty -Continuous monitoring pulse ox GI - GERD?Continue home regimen pantoprazole daily Heart healthy diet RENAL/LYTES - Creatinine within normal limits, monitor electrolytes and replete as indicated. Monitor routine BMPs - Strict I's and O's ENDO - No history of diabetes, A1c pending. ICU hyperglycemic protocol Hypothyroidpatient presents with elevated TSH and low T4. No previous history of hypothyroid. Will likely need start on Synthroid HEME - H&H stable, monitor routine CBCs ID - No evidence of infectious at this time. Monitor fever curve LINES/IV ACCESS - Peripheral IVs DVT PROPHYLAXIS - SCDs Patient stable for downgrade to floor. (2) Chest pain: (3) Dyslipidemia: (4) Coronary artery disease: (5) Hypertension: (6) Neuropathy: Admission and Anticipated Discharge Date Admission Date: January 10, 2021 Subjective Patient seen and examined this afternoon. She denies any current complaints. She is eager to get out of bed and also to go home. No chest pain this morning or afternoon. No fevers chills. Otherwise review of systems 07/14 -. Physical Exam 2 Constitutional: cooperative and comfortable Eyes: PERRL, conjunctivae normal, anicteric sclerae ENMT: external ear and nose normal, oropharynx normal Neck: trachea midline, no thyromegaly Respiratory: normal respiratory effort, lungs clear to auscultation Cardiovascular: RRR, no murmur, no edema Heart Sounds: normal S1 and normal S2 Vessels: no JVD Extremities: no edema Gastrointestinal (Abdomen): normal bowel sounds, soft, nontender, no hepatosplenomegaly Musculoskeletal: no cyanosis or clubbing, extremities motor strength 5/5 Skin: no rashes, warm and dry Neurologic: PERRL, EOMI, accommodation nl, no face palsy, no dysarthria Psychiatric: A+Ox3, euthymic affect Results & Data Results & Data ([facility]) Vital Signs (Past 12 Hours) Vital Signs Temp Pulse Resp BP Pulse Ox 01/11/21 12:50 62 17 145/73 H 97 01/11/21 12:00 98.4 F 69 20 98 01/11/21 11:00 61 14 98 01/11/21 10:03 58 L 12 151/98 H 97 01/11/21 10:00 99 01/11/21 09:00 59 L 28 H 99 01/11/21 08:01 60 20 97 01/11/21 08:00 98.2 F 69 23 181/86 H 99 01/11/21 07:11 60 21 157/82 H 100 01/11/21 07:00 22 99 01/11/21 05:40 56 L 12 137/78 98 01/11/21 05:30 47 L 17 99 01/11/21 05:15 60 15 169/92 H 98 01/11/21 05:03 55 L 16 141/84 H 98 01/11/21 05:01 50 L 17 98 01/11/21 05:00 52 L 15 144/90 H 99 01/11/21 04:57 47 L 18 148/83 H 97 01/11/21 04:31 53 L 14 99 01/11/21 04:30 48 L 14 171/93 H 100 01/11/21 04:15 55 L 15 162/95 H 94 01/11/21 04:08 47 L 15 164/97 H 99 01/11/21 04:06 45 L 18 163/104 H 100 01/11/21 04:01 46 L 22 167/103 H 99 01/11/21 04:00 98.4 F 46 L 16 99 01/11/21 03:45 52 L 13 133/88 96 01/11/21 03:31 49 L 15 99 01/11/21 03:30 49 L 15 176/96 H 100 01/11/21 03:23 60 16 157/97 H 98 01/11/21 03:15 47 L 26 H 99 01/11/21 03:01 48 L 19 99 01/11/21 03:00 46 L 18 153/90 H 99 01/11/21 02:46 53 L 17 99 01/11/21 02:45 59 L 17 123/86 98 01/11/21 02:30 48 L 20 133/84 99 01/11/21 02:16 51 L 18 99 01/11/21 02:15 50 L 18 146/74 H 98 01/11/21 02:00 53 L 18 131/84 99 01/11/21 01:46 52 L 22 98 01/11/21 01:45 54 L 23 98 I reviewed vital signs, labs and imaging Coding Level of Care Code 86175 Subseq Hosp Care Lvl 2 Diagnoses ACS (acute coronary syndrome) I24.9 Chest pain R07.9 Dyslipidemia E78.5 Coronary artery disease I25.10 Hypertension I10 Neuropathy G62.9
--- NOTE | 2021-01-11 15:27 | XCELERA ---
[id number] [email or web address]\[id number]
--- NOTE | 2021-01-11 17:32 | Hospitalist Progress Note ---
Date of Service January 11, 2021 Assessment & Plan (1) ACS (acute coronary syndrome): STEMI, emergent left heart cath, 99% lesion in RCA JETT placed loaded with Brilinta continue aspirin, metoprolol, lisinopril, Crestor (2) Coronary artery disease: see above (3) Neuropathy: (4) STEMI (ST elevation myocardial infarction): see above (5) Dyslipidemia: (6) Hypertension: Admission and Anticipated Discharge Date Admission Date: January 10, 2021 Subjective patient doing well today, had some chest pain this morning, gave Nitro SL, got a headache no further chest pain, breathing well, eating well reviewed chart, had STEMI, JETT placed in mid RCA 99% lesion Dr. Merino ordered Brilinta, aspirin, Crestor, metoprolol, lisinopril Review of Systems Review of Systems: All systems reviewed & are unremarkable except as noted in Subjective Physical Exam Constitutional: WD/WN, vitals as above Neck: trachea midline, no thyromegaly Respiratory: normal respiratory effort, lungs clear to auscultation Cardiovascular: RRR, no murmur, no edema Gastrointestinal (Abdomen): normal bowel sounds, soft, nontender, no hepatosplenomegaly Musculoskeletal: no cyanosis or clubbing, extremities motor strength 5/5 Skin: no rashes, warm and dry Neurologic: patellar DTR's 2+ bilat, sensation intact and PERRL, EOMI, accommodation nl, no face palsy, no dysarthria Psychiatric: A+Ox3, euthymic affect Lymphatic: no cervical or axillary lymphadenopathy Results & Data Results & Data ([facility]) Vital Signs (Past 12 Hours) Vital Signs Temp Pulse Resp BP Pulse Ox 01/11/21 12:50 62 17 145/73 H 97 01/11/21 12:00 36.9 C 69 20 98 01/11/21 11:00 61 14 98 01/11/21 10:03 58 L 12 151/98 H 97 01/11/21 10:00 99 01/11/21 09:00 59 L 28 H 99 01/11/21 08:01 60 20 97 01/11/21 08:00 36.8 C 69 23 181/86 H 99 01/11/21 07:11 60 21 157/82 H 100 01/11/21 07:00 22 99 01/11/21 05:40 56 L 12 137/78 98 01/11/21 05:30 47 L 17 99 Laboratory Results Laboratory Results - last 24 hr 01/10/21 01/10/21 01/10/21 21:52 21:52 21:56 WBC 9.21 RBC 3.66 L Hgb 11.7 L POC Hgb Hct 35.4 L POC Hct MCV 96.7 MCH 32.0 MCHC 33.1 RDW Std Deviation 48.1 H RDW Coeff of Evan 13.6 Plt Count 204 MPV 9.6 Immature Gran % (Auto) 0.2 Neut % (Auto) 56.4 Lymph % (Auto) 32.5 [place] % (Auto) 9.6 Eos % (Auto) 1.1 Baso % (Auto) 0.2 Neut # (Auto) 5.20 Lymph # (Auto) 2.99 [place] # (Auto) 0.88 H Eos # (Auto) 0.10 Baso # (Auto) 0.02 Immature Gran # (Auto) 0.02 PT INR APTT PTT Ratio Activ Coag Time Kaolin POC Sodium Sodium POC Potassium Potassium POC Chloride Chloride Carbon Dioxide POC Total CO2 Anion Gap POC Anion Gap POC BUN BUN Creatinine POC Creatinine Est Cr Clr Drug Dosing Est GFR ( Amer) Est GFR (Non-Af Amer) BUN/Creatinine Ratio Glucose POC Glucose POC Glucose (other) Estimat Average Glucose Hemoglobin A1c Calcium POC Ioniz Calcium Brittany Phosphorus Magnesium Total Bilirubin AST ALT Alkaline Phosphatase Total Creatine Kinase CK-MB (CK-2) CK/CKMB % Calc Troponin I Total Protein Albumin Globulin Albumin/Globulin Ratio Triglycerides Cholesterol LDL Cholesterol Direct LDL Cholesterol, Calc VLDL Cholesterol, Calc HDL Cholesterol Cholesterol/HDL Ratio Lipase TSH Free T4 Urine Color Urine Appearance Urine pH Ur Specific [place] Urine Protein Urine Glucose (UA) Urine Ketones Urine Blood Urine Nitrite Urine Bilirubin Urine Urobilinogen Ur Leukocyte Esterase Urine WBC (Auto) Urine RBC (Auto) U Hyaline Cast (Auto) U Epithel Cells (Auto) Urine Bacteria (Auto) Nasal Screen MRSA (PCR) COVID-19 Eval Order CovFluRsv at [facility] SARS-CoV-2 (PCR) NEGATIVE Influenza Type A (PCR) Negative Influenza Type B (PCR) Negative RSV (RT-PCR) Negative 01/10/21 01/10/21 01/10/21 21:56 21:56 21:59 WBC RBC Hgb POC Hgb 11.9 L Hct POC Hct 35 L MCV MCH MCHC RDW Std Deviation RDW Coeff of Evan Plt Count MPV Immature Gran % (Auto) Neut % (Auto) Lymph % (Auto) [place] % (Auto) Eos % (Auto) Baso % (Auto) Neut # (Auto) Lymph # (Auto) [place] # (Auto) Eos # (Auto) Baso # (Auto) Immature Gran # (Auto) PT 9.8 INR 1.0 APTT 22.1 PTT Ratio 0.8 Activ Coag Time Kaolin POC Sodium 140 Sodium 141 POC Potassium 3.6 Potassium 3.6 POC Chloride 103 Chloride 107 Carbon Dioxide 28 POC Total CO2 28 Anion Gap 5.0 POC Anion Gap 14.0 L POC BUN 15 BUN 15 Creatinine 0.71 POC Creatinine 0.7 Est Cr Clr Drug Dosing 93.9 Est GFR ( Amer) 109.6 Est GFR (Non-Af Amer) 94.6 BUN/Creatinine Ratio 21.0 H Glucose 148 H POC Glucose POC Glucose (other) 148 H Estimat Average Glucose Hemoglobin A1c Calcium 8.8 POC Ioniz Calcium Brittany 1.22 Phosphorus Magnesium 2.3 Total Bilirubin 0.3 AST 39 H ALT 47 Alkaline Phosphatase 108 Total Creatine Kinase 88 CK-MB (CK-2) 1.3 CK/CKMB % Calc 1.5 Troponin I < 0.015 Total Protein 6.2 L Albumin 3.4 Globulin 2.8 Albumin/Globulin Ratio 1.2 Triglycerides Cholesterol LDL Cholesterol Direct LDL Cholesterol, Calc VLDL Cholesterol, Calc HDL Cholesterol Cholesterol/HDL Ratio Lipase 54 L TSH 4.810 H Free T4 0.74 L Urine Color Urine Appearance Urine pH Ur Specific [place] Urine Protein Urine Glucose (UA) Urine Ketones Urine Blood Urine Nitrite Urine Bilirubin Urine Urobilinogen Ur Leukocyte Esterase Urine WBC (Auto) Urine RBC (Auto) U Hyaline Cast (Auto) U Epithel Cells (Auto) Urine Bacteria (Auto) Nasal Screen MRSA (PCR) COVID-19 Eval Order SARS-CoV-2 (PCR) Influenza Type A (PCR) Influenza Type B (PCR) RSV (RT-PCR) 01/10/21 01/10/21 01/11/21 22:29 23:20 00:03 WBC RBC Hgb POC Hgb Hct POC Hct MCV MCH MCHC RDW Std Deviation RDW Coeff of Evan Plt Count MPV Immature Gran % (Auto) Neut % (Auto) Lymph % (Auto) [place] % (Auto) Eos % (Auto) Baso % (Auto) Neut # (Auto) Lymph # (Auto) [place] # (Auto) Eos # (Auto) Baso # (Auto) Immature Gran # (Auto) PT INR APTT PTT Ratio Activ Coag Time Kaolin 219 H POC Sodium Sodium POC Potassium Potassium POC Chloride Chloride Carbon Dioxide POC Total CO2 Anion Gap POC Anion Gap POC BUN BUN Creatinine POC Creatinine Est Cr Clr Drug Dosing Est GFR ( Amer) Est GFR (Non-Af Amer) BUN/Creatinine Ratio Glucose POC Glucose 130 H POC Glucose (other) Estimat Average Glucose Hemoglobin A1c Calcium POC Ioniz Calcium Brittany Phosphorus Magnesium Total Bilirubin AST ALT Alkaline Phosphatase Total Creatine Kinase CK-MB (CK-2) CK/CKMB % Calc Troponin I Total Protein Albumin Globulin Albumin/Globulin Ratio Triglycerides Cholesterol LDL Cholesterol Direct LDL Cholesterol, Calc VLDL Cholesterol, Calc HDL Cholesterol Cholesterol/HDL Ratio Lipase TSH Free T4 Urine Color Urine Appearance Urine pH Ur Specific [place] Urine Protein Urine Glucose (UA) Urine Ketones Urine Blood Urine Nitrite Urine Bilirubin Urine Urobilinogen Ur Leukocyte Esterase Urine WBC (Auto) Urine RBC (Auto) U Hyaline Cast (Auto) U Epithel Cells (Auto) Urine Bacteria (Auto) Nasal Screen MRSA (PCR) Negative COVID-19 Eval Order SARS-CoV-2 (PCR) Influenza Type A (PCR) Influenza Type B (PCR) RSV (RT-PCR) 01/11/21 01/11/21 01/11/21 00:50 04:06 04:06 WBC 8.21 RBC 3.89 L Hgb 12.3 POC Hgb Hct 37.3 POC Hct MCV 95.9 MCH 31.6 MCHC 33.0 RDW Std Deviation 46.9 H RDW Coeff of Evan 13.5 Plt Count 223 MPV 9.6 Immature Gran % (Auto) 0.2 Neut % (Auto) 60.9 Lymph % (Auto) 30.6 [place] % (Auto) 7.7 Eos % (Auto) 0.4 Baso % (Auto) 0.2 Neut # (Auto) 5.00 Lymph # (Auto) 2.51 [place] # (Auto) 0.63 H Eos # (Auto) 0.03 Baso # (Auto) 0.02 Immature Gran # (Auto) 0.02 PT INR APTT PTT Ratio Activ Coag Time Kaolin POC Sodium Sodium 142 POC Potassium Potassium 4.0 POC Chloride Chloride 111 H Carbon Dioxide 26 POC Total CO2 Anion Gap 5.0 POC Anion Gap POC BUN BUN 11 Creatinine 0.46 L POC Creatinine Est Cr Clr Drug Dosing 136.2 Est GFR ( Amer) 128.0 Est GFR (Non-Af Amer) 110.4 BUN/Creatinine Ratio 24.6 H Glucose 110 H POC Glucose POC Glucose (other) Estimat Average Glucose Hemoglobin A1c Calcium 8.6 POC Ioniz Calcium Brittany Phosphorus 2.9 Magnesium 2.2 Total Bilirubin AST ALT Alkaline Phosphatase Total Creatine Kinase CK-MB (CK-2) CK/CKMB % Calc Troponin I 1.110 H* Total Protein Albumin Globulin Albumin/Globulin Ratio Triglycerides 152 H Cholesterol 231 H LDL Cholesterol Direct 137 LDL Cholesterol, Calc Not Reportable VLDL Cholesterol, Calc 30 HDL Cholesterol 61 Cholesterol/HDL Ratio 4 Lipase TSH Free T4 Urine Color Yellow Urine Appearance Clear Urine pH 7.5 Ur Specific [place] 1.036 H Urine Protein Negative Urine Glucose (UA) Negative Urine Ketones Negative Urine Blood Trace H Urine Nitrite Negative Urine Bilirubin Negative Urine Urobilinogen Negative Ur Leukocyte Esterase Negative Urine WBC (Auto) 1-5 Urine RBC (Auto) 5-10 H U Hyaline Cast (Auto) 1-5 U Epithel Cells (Auto) 5-10 H Urine Bacteria (Auto) Negative Nasal Screen MRSA (PCR) COVID-19 Eval Order SARS-CoV-2 (PCR) Influenza Type A (PCR) Influenza Type B (PCR) RSV (RT-PCR) 01/11/21 01/11/21 01/11/21 04:06 05:01 10:23 WBC RBC Hgb POC Hgb Hct POC Hct MCV MCH MCHC RDW Std Deviation RDW Coeff of Evan Plt Count MPV Immature Gran % (Auto) Neut % (Auto) Lymph % (Auto) [place] % (Auto) Eos % (Auto) Baso % (Auto) Neut # (Auto) Lymph # (Auto) [place] # (Auto) Eos # (Auto) Baso # (Auto) Immature Gran # (Auto) PT INR APTT PTT Ratio Activ Coag Time Kaolin POC Sodium Sodium POC Potassium Potassium POC Chloride Chloride Carbon Dioxide POC Total CO2 Anion Gap POC Anion Gap POC BUN BUN Creatinine POC Creatinine Est Cr Clr Drug Dosing Est GFR ( Amer) Est GFR (Non-Af Amer) BUN/Creatinine Ratio Glucose POC Glucose 125 H POC Glucose (other) Estimat Average Glucose 126 Hemoglobin A1c 6.0 H Calcium POC Ioniz Calcium Brittany Phosphorus Magnesium Total Bilirubin AST ALT Alkaline Phosphatase Total Creatine Kinase CK-MB (CK-2) CK/CKMB % Calc Troponin I 1.290 H* Total Protein Albumin Globulin Albumin/Globulin Ratio Triglycerides Cholesterol LDL Cholesterol Direct LDL Cholesterol, Calc VLDL Cholesterol, Calc HDL Cholesterol Cholesterol/HDL Ratio Lipase TSH Free T4 Urine Color Urine Appearance Urine pH Ur Specific [place] Urine Protein Urine Glucose (UA) Urine Ketones Urine Blood Urine Nitrite Urine Bilirubin Urine Urobilinogen Ur Leukocyte Esterase Urine WBC (Auto) Urine RBC (Auto) U Hyaline Cast (Auto) U Epithel Cells (Auto) Urine Bacteria (Auto) Nasal Screen MRSA (PCR) COVID-19 Eval Order SARS-CoV-2 (PCR) Influenza Type A (PCR) Influenza Type B (PCR) RSV (RT-PCR) 01/11/21 01/11/21 11:48 16:16 WBC RBC Hgb POC Hgb Hct POC Hct MCV MCH MCHC RDW Std Deviation RDW Coeff of Evan Plt Count MPV Immature Gran % (Auto) Neut % (Auto) Lymph % (Auto) [place] % (Auto) Eos % (Auto) Baso % (Auto) Neut # (Auto) Lymph # (Auto) [place] # (Auto) Eos # (Auto) Baso # (Auto) Immature Gran # (Auto) PT INR APTT PTT Ratio Activ Coag Time Kaolin POC Sodium Sodium POC Potassium Potassium POC Chloride Chloride Carbon Dioxide POC Total CO2 Anion Gap POC Anion Gap POC BUN BUN Creatinine POC Creatinine Est Cr Clr Drug Dosing Est GFR ( Amer) Est GFR (Non-Af Amer) BUN/Creatinine Ratio Glucose POC Glucose 141 H 105 H POC Glucose (other) Estimat Average Glucose Hemoglobin A1c Calcium POC Ioniz Calcium Brittany Phosphorus Magnesium Total Bilirubin AST ALT Alkaline Phosphatase Total Creatine Kinase CK-MB (CK-2) CK/CKMB % Calc Troponin I Total Protein Albumin Globulin Albumin/Globulin Ratio Triglycerides Cholesterol LDL Cholesterol Direct LDL Cholesterol, Calc VLDL Cholesterol, Calc HDL Cholesterol Cholesterol/HDL Ratio Lipase TSH Free T4 Urine Color Urine Appearance Urine pH Ur Specific [place] Urine Protein Urine Glucose (UA) Urine Ketones Urine Blood Urine Nitrite Urine Bilirubin Urine Urobilinogen Ur Leukocyte Esterase Urine WBC (Auto) Urine RBC (Auto) U Hyaline Cast (Auto) U Epithel Cells (Auto) Urine Bacteria (Auto) Nasal Screen MRSA (PCR) COVID-19 Eval Order SARS-CoV-2 (PCR) Influenza Type A (PCR) Influenza Type B (PCR) RSV (RT-PCR) Medications Administered Current Inpatient Medications Acetaminophen (Acetaminophen 325 Mg Tab) 650 mg PO Q4H PRN PRN Reason: MILD Pain (Scale 1,2,3) Stop: 02/09/21 22:50 Last Admin: 01/11/21 08:08 Dose: 650 mg Documented by: Aspirin (Aspirin 81 Mg Ectab) 81 mg PO QAM [facility] Stop: 02/10/21 08:59 Last Admin: 01/11/21 08:04 Dose: 81 mg Documented by: Gabapentin (Gabapentin 300 Mg Cap) 300 mg PO TID [facility] Stop: 02/10/21 08:59 Last Admin: 01/11/21 14:45 Dose: 300 mg Documented by: Lisinopril (Lisinopril 5 Mg Tab) 5 mg PO QAM [facility] Stop: 02/10/21 08:59 Last Admin: 01/11/21 08:04 Dose: 5 mg Documented by: Metoprolol Tartrate (Metoprolol Tartrate 25 Mg Tab) 12.5 mg PO BID [facility] Stop: 02/10/21 08:59 Last Admin: 01/11/21 08:04 Dose: 12.5 mg Documented by: Miscellaneous (Icu Protocol For Hyperglycemia) 1 ea N/A PRN PRN; Protocol PRN Reason: Hyperglycemia Protocol Stop: 01/12/21 22:55 Nitroglycerin (Nitroglycerin Sl 0.4 Mg/Tab Tab) 0.4 mg SL PRN PRN PRN Reason: Chest Pain Stop: 02/09/21 22:50 Last Admin: 01/11/21 04:57 Dose: 0.4 mg Documented by: Ondansetron HCl (Ondansetron Inj 2 Mg/Ml 2 Ml Vial) 4 mg IV Q6H PRN PRN Reason: Nausea And Vomiting Stop: 02/09/21 22:50 Pantoprazole Sodium (Pantoprazole 40 Mg Tab) 40 mg PO QAM [facility] Stop: 02/10/21 08:59 Last Admin: 01/11/21 08:06 Dose: Not Given Documented by: Rosuvastatin Calcium (Rosuvastatin Calcium 20 Mg Tab) 40 mg PO DAILY [facility] Stop: 02/10/21 08:59 Last Admin: 01/11/21 08:05 Dose: 40 mg Documented by: Ticagrelor (Ticagrelor 90 Mg Tab) 90 mg PO BID ANNIE Stop: 02/10/21 08:59 Last Admin: 01/11/21 08:05 Dose: 90 mg Documented by: PG Care Time/CCT Total # of Minutes Spent Total Time Spent with Patient: Total time spent is greater than 50% in coordination of care (as documented) at patient's floor/unit and/or counseling patient: Coding Level of Care Code 05157 Subseq Hosp Care Lvl 2 Diagnoses ACS (acute coronary syndrome) I24.9 Coronary artery disease I25.10 Neuropathy G62.9 STEMI (ST elevation myocardial infarction) I21.3 Dyslipidemia E78.5 Hypertension I10
--- NOTE | 2021-01-11 17:40 | Cardiology Progress Note ---
Date of Service January 11, 2021 Assessment & Plan (1) Coronary artery disease: Post PCI with JETT to RCA Moderate to severe residual LAD, circumflex disease 2. Preserved LV function with inferior wall motion abnormality 3. Dyslipidemia 4. Hypertension Feeling well, chest pain-free. Mild troponin elevation as peaked LV function preserved. No significant access site complications Continue DAPT with aspirin, ticagrelor Increase metoprolol to 25 mg twice daily Increase lisinopril to 10 mg daily Continue high intensity statin From a cardiac standpoint okay with transfer to telemetry today. Likely home tomorrow morning. Admission and Anticipated Discharge Date Admission Date: January 10, 2021 Subjective Feeling well. 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 Afterwards had headache. This afternoon feeling well. No new complaints. Telemetry reviewedno events Review of Systems Review of Systems: All systems reviewed & are unremarkable except as noted in HPI & below Physical Exam Physical Exam: General: Comfortable HEENT: Sclerae anicteric Lungs: Clear to auscultation Cardiac: Regular rate Abdomen: Soft, nontender Extremities: Right radial artery access site with ecchymosis but no hematoma. Distal pulse and sensation intact. Neuro: Nonfocal Psych: Alert orient x3, normal affect and mood Results & Data ([facility]) Vital Signs (Past 12 Hours) Vital Signs Temp Pulse Resp BP Pulse Ox 01/11/21 12:50 62 17 145/73 H 97 01/11/21 12:00 98.4 F 69 20 98 01/11/21 11:00 61 14 98 01/11/21 10:03 58 L 12 151/98 H 97 01/11/21 10:00 99 01/11/21 09:00 59 L 28 H 99 01/11/21 08:01 60 20 97 01/11/21 08:00 98.2 F 69 23 181/86 H 99 01/11/21 07:11 60 21 157/82 H 100 01/11/21 07:00 22 99 01/11/21 05:40 56 L 12 137/78 98 PG Care Time/CCT Total # of Minutes Spent Total Time Spent with Patient: Total time spent is greater than 50% in coordination of care (as documented) at patient's floor/unit and/or counseling patient: Coding Level of Care Code 18881 Subseq Hosp Care Lvl 3 Diagnoses Coronary artery disease I25.10
[2021-01-11] MEDS ORDERED: ZOLPIDEM TARTRATE 5 MG TAB PO PRN (17:41)
[2021-01-11] MEDS ORDERED: lisinopril 5 MG TAB PO ONE (17:41)
--- NOTE | 2021-01-11 20:27 | History & Physical Report ---
Date of Service January 11, 2021 The patient was initially seen and evaluated on January 10, 2021 Assessment & Plan (1) Admitted to intensive care unit: Admitted to intensive care unit status post cardiac catheterization with stent placement Present on Admission?: Yes (2) STEMI (ST elevation myocardial infarction): STEMI/status post placement of stent mid RCA lesion- No further chest discomfort post procedure Continue postprocedure medications as per Dr. Merino Present on Admission?: Yes (3) Hypertension: Continue amlodipine Present on Admission?: Yes (4) Dyslipidemia: Placed on high-dose statin simvastatin 20 mg p.o. daily post procedure Present on Admission?: Yes (5) Depression: Continue duloxetine Present on Admission?: Yes (6) Muscle spasm: Continue tizanidine and methocarbamol Present on Admission?: Yes (7) Peripheral neuropathy: Continue gabapentin Present on Admission?: Yes (8) GERD (gastroesophageal reflux disease): Continue pantoprazole Present on Admission?: Yes Admission and Anticipated Discharge Date Admission Date: January 10, 2021 History of Present Illness Chief Complaint: The patient presented to the emergency department with chest pain and was declared a heart alert, and taken emergently to cardiac catheterization by Dr. Frank Merino. Primary Care Provider: NO PCP The patient is a 55-year-old female with a past medical history including dyslipidemia, hypertension, neuropathy, depression, GERD, migraine, muscle spasm who presents to the emergency department with chest pain. She was taken to the [facility] emergently, and had 1 RCA stent placed with good outcome. Patient seen post procedure in the ICU reports her chest symptoms have completely resolved and has no other complaints. Allergies Allergy/AdvReac Type Severity Reaction Status Date / Time [id number] Allergy Mild Uncoded 04/10/06 15:39 Home Medications Medication Instructions Recorded Confirmed Type amlodipine 10 mg PO DAILY 01/10/21 01/10/21 History duloxetine 60 mg PO BID 01/10/21 01/10/21 History gabapentin 300 mg PO TID 01/10/21 01/10/21 History methocarbamol 750 mg PO TID PRN 01/10/21 01/10/21 History oxycodone-acetaminophen 1 tab PO TID PRN 01/10/21 01/10/21 History pantoprazole 40 mg PO DAILY 01/10/21 01/10/21 History rosuvastatin 20 mg PO DAILY 01/10/21 01/10/21 History sumatriptan succinate 100 mg PO BID PRN 01/10/21 01/10/21 History tizanidine 4 mg PO TID PRN 01/10/21 01/10/21 History Past Med/Surg History Medical History (Updated 01/11/21 @ 20:23 by Jame Barajas MD) Depression Dyslipidemia GERD (gastroesophageal reflux disease) Hypertension Muscle spasm Peripheral neuropathy Surgical History (Updated 01/11/21 @ 00:54 by Jame Flores) History of cholecystectomy History of hysterectomy Family History (Updated 01/11/21 @ 00:54 by Jame Flores) Other Hypertension Social History Smoking Status: Current every day smoker Cigarettes Per Day: 7; Do You Dip or Chew Tobacco: No; Tobacco Cessation Education Requested by Patient: Yes Hx Alcohol Use: No Hx Substance Use: No Preferred Language: Norwegian Communication Ability: Effective Beliefs That Will Affect Care: None Current Living Situation: Spouse Other Information That Helps Us Care for You: No Feels Safe at Home: Yes Safety Concerns: Feels Safe At This Time Assistive Devices: Denture - Upper and Glasses Review of Systems Review of Systems: The patient, seen post procedure, denies chest pain, palpitations, shortness of breath, dyspnea on exertion, cough, lower extremity swelling, sore throat, fevers, chills, sweats, nausea, vomiting, diarrhea , constipation, abdominal pain, pelvic pain, blood in urine or stool, dysuria, urinary frequency or urgency, lightheadedness, dizziness, headache, memory loss, loss of consciousness, rash, abnormal bruising or bleeding, imbalance, focal or generalized weakness, numbness or tingling in arms or legs, generalized arthralgias or myalgias, back or neck pain, or night sweats. The review of systems is otherwise negative other than for that already noted above, and at least 10 systems have been reviewed. Physical Exam Physical Exam: The patient is awake, alert and oriented 3, well developed and well nourished, normocephalic and atraumatic, lying in bed and in no acute distress. HEENT--PERRL, EOMI, mucous membranes and oropharynx normal. Neck--supple. No JVD. No bruits. Thyroid normal, trachea midline, no adenopathy. Heart--normal S1 and S2. No murmurs, rubs or gallops. Lungs--clear bilaterally, no respiratory distress, no accessory muscle use. Abdomen--normal bowel sounds and soft. Nontender. Nondistended, no hernias or masses, no organomegaly. Extremities--no cyanosis or clubbing. No edema. There are good distal pulses b/l. Dermatologic--normal skin turgor, normal color, no abnormal lymph nodes, no rash. Neurologic--cranial nerves II through XII grossly intact. Rheumatologic--normal range of motion. Psychiatric--normal affect. Results & Data Results & Data ([facility]) Vital Signs (Past 12 Hours) Vital Signs Temp Pulse Resp BP Pulse Ox 01/11/21 18:00 70 14 01/11/21 17:00 68 12 97 01/11/21 16:00 69 19 98 01/11/21 15:00 98.4 F 59 L 13 99 01/11/21 14:01 67 21 98 01/11/21 14:00 77 17 131/71 98 01/11/21 13:01 57 L 19 96 01/11/21 13:00 58 L 19 133/79 98 01/11/21 12:51 60 15 97 01/11/21 12:50 62 17 145/73 H 97 01/11/21 12:00 98.4 F 69 20 98 01/11/21 11:00 61 14 98 01/11/21 10:03 58 L 12 151/98 H 97 01/11/21 10:00 99 01/11/21 09:00 59 L 28 H 99 Laboratory Results Laboratory Results WBC 8.21 K/uL (4.8-10.8) 01/11/21 04:06 RBC 3.89 M/uL (4.2-5.4) L 01/11/21 04:06 Hgb 12.3 g/dL (12.0-16.0) 01/11/21 04:06 POC Hgb 11.9 g/dl (12.0-16.0) L 01/10/21 21:59 Hct 37.3 % (37-47) 01/11/21 04:06 POC Hct 35 % (37-47) L 01/10/21 21:59 MCV 95.9 fL (80-100) 01/11/21 04:06 MCH 31.6 pg (25-34) 01/11/21 04:06 MCHC 33.0 g/dL (32-36) 01/11/21 04:06 RDW Std Deviation 46.9 fL (36.4-46.3) H 01/11/21 04:06 RDW Coeff of Evan 13.5 % (11.5-14.5) 01/11/21 04:06 Plt Count 223 K/uL (130-400) 01/11/21 04:06 MPV 9.6 fL (7.4-10.4) 01/11/21 04:06 Immature Gran % (Auto) 0.2 % 01/11/21 04:06 Neut % (Auto) 60.9 % 01/11/21 04:06 Lymph % (Auto) 30.6 % 01/11/21 04:06 [place] % (Auto) 7.7 % 01/11/21 04:06 Eos % (Auto) 0.4 % 01/11/21 04:06 Baso % (Auto) 0.2 % 01/11/21 04:06 Neut # (Auto) 5.00 K/uL (1.4-6.5) 01/11/21 04:06 Lymph # (Auto) 2.51 K/uL (1.2-3.4) 01/11/21 04:06 [place] # (Auto) 0.63 K/uL (0.11-0.59) H 01/11/21 04:06 Eos # (Auto) 0.03 K/uL (0-0.5) 01/11/21 04:06 Baso # (Auto) 0.02 K/uL (0-0.2) 01/11/21 04:06 Immature Gran # (Auto) 0.02 K/uL (0.00-0.02) 01/11/21 04:06 PT 9.8 Seconds (9.0-12.0) 01/10/21 21:56 INR 1.0 (0.9-1.1) 01/10/21 21:56 APTT 22.1 Seconds (21.0-31.0) 01/10/21 21:56 PTT Ratio 0.8 01/10/21 21:56 Activ Coag Time Kaolin 219 SECONDS (94-140) H 01/10/21 22:29 POC Sodium 140 mmol/L (135-144) 01/10/21 21:59 Sodium 142 mmol/L (136-145) 01/11/21 04:06 POC Potassium 3.6 mmol/L (3.3-5.0) 01/10/21 21:59 Potassium 4.0 mmol/L (3.5-5.1) 01/11/21 04:06 POC Chloride 103 mmol/L (101-112) 01/10/21 21:59 Chloride 111 mmol/L (98-107) H 01/11/21 04:06 Carbon Dioxide 26 mmol/L (21-32) 01/11/21 04:06 POC Total CO2 28 mmol/L (24-31) 01/10/21 21:59 Anion Gap 5.0 (3-11) 01/11/21 04:06 POC Anion Gap 14.0 mmol/L (16-25) L 01/10/21 21:59 POC BUN 15 mg/dl (7-18) 01/10/21 21:59 BUN 11 mg/dl (7-18) 01/11/21 04:06 Creatinine 0.46 mg/dl (0.6-1.2) L 01/11/21 04:06 POC Creatinine 0.7 mg/dl (0.6-1.3) 01/10/21 21:59 Est Cr Clr Drug Dosing 136.2 ml/min 01/11/21 04:06 Est GFR ( Amer) 128.0 01/11/21 04:06 Est GFR (Non-Af Amer) 110.4 01/11/21 04:06 BUN/Creatinine Ratio 24.6 (10-20) H 01/11/21 04:06 Glucose 110 mg/dl (70-99) H 01/11/21 04:06 POC Glucose 105 mg/dl (70-99) H 01/11/21 16:16 POC Glucose (other) 148 mg/dl (70-99) H 01/10/21 21:59 Estimat Average Glucose 126 mg/dl 01/11/21 04:06 Hemoglobin A1c 6.0 % (4.5-5.6) H 01/11/21 04:06 Calcium 8.6 mg/dl (8.5-10.1) 01/11/21 04:06 POC Ioniz Calcium Brittany 1.22 mmol/l (1.12-1.32) 01/10/21 21:59 Phosphorus 2.9 mg/dl (2.5-4.9) 01/11/21 04:06 Magnesium 2.2 mg/dl (1.8-2.4) 01/11/21 04:06 Total Bilirubin 0.3 mg/dl (0.2-1) 01/10/21 21:56 AST 39 U/L (15-37) H 01/10/21 21:56 ALT 47 U/L (12-78) 01/10/21 21:56 Alkaline Phosphatase 108 U/L (45-117) 01/10/21 21:56 Total Creatine Kinase 88 U/L (26-192) 01/10/21 21:56 CK-MB (CK-2) 1.3 ng/ml (0.5-3.6) 01/10/21 21:56 CK/CKMB % Calc 1.5 (0-3.0) 01/10/21 21:56 Troponin I 1.290 ng/ml (0-0.045) H* 01/11/21 10:23 Total Protein 6.2 gm/dl (6.4-8.2) L 01/10/21 21:56 Albumin 3.4 gm/dl (3.4-5.0) 01/10/21 21:56 Globulin 2.8 gm/dl (2.5-4.0) 01/10/21 21:56 Albumin/Globulin Ratio 1.2 (0.9-2) 01/10/21 21:56 Triglycerides 152 mg/dl (0-150) H 01/11/21 04:06 Cholesterol 231 mg/dl (0-200) H 01/11/21 04:06 LDL Cholesterol Direct 137 mg/dl 01/11/21 04:06 LDL Cholesterol, Calc Not Reportable 01/11/21 04:06 VLDL Cholesterol, Calc 30 mg/dl 01/11/21 04:06 HDL Cholesterol 61 mg/dl 01/11/21 04:06 Cholesterol/HDL Ratio 4 01/11/21 04:06 Lipase 54 U/L (73-393) L 01/10/21 21:56 TSH 4.810 uIu/ml (0.300-4.500) H 01/10/21 21:56 Free T4 0.74 ng/dl (0.8-1.6) L 01/10/21 21:56 Urine Color Yellow 01/11/21 00:50 Urine Appearance Clear (Clear) 01/11/21 00:50 Urine pH 7.5 (4.5-7.5) 01/11/21 00:50 Ur Specific [place] 1.036 (1.000-1.030) H 01/11/21 00:50 Urine Protein Negative (Negative) 01/11/21 00:50 Urine Glucose (UA) Negative (Negative) 01/11/21 00:50 Urine Ketones Negative (Negative) 01/11/21 00:50 Urine Blood Trace (Negative) H 01/11/21 00:50 Urine Nitrite Negative (Negative) 01/11/21 00:50 Urine Bilirubin Negative (Negative) 01/11/21 00:50 Urine Urobilinogen Negative (Negative) 01/11/21 00:50 Ur Leukocyte Esterase Negative (Negative) 01/11/21 00:50 Urine WBC (Auto) 1-5 /hpf (0-5) 01/11/21 00:50 Urine RBC (Auto) 5-10 /hpf (0-4) H 01/11/21 00:50 U Hyaline Cast (Auto) 1-5 /lpf (0-5) 01/11/21 00:50 U Epithel Cells (Auto) 5-10 /lpf (0-5) H 01/11/21 00:50 Urine Bacteria (Auto) Negative (Negative) 01/11/21 00:50 Nasal Screen MRSA (PCR) Negative (Negative) 01/10/21 23:20 COVID-19 Eval Order [facility]Rsv at [facility] 01/10/21 21:52 SARS-CoV-2 (PCR) NEGATIVE (Negative) 01/10/21 21:52 Influenza Type A (PCR) Negative (Neg) 01/10/21 21:52 Influenza Type B (PCR) Negative (Neg) 01/10/21 21:52 RSV (RT-PCR) Negative (Neg) 01/10/21 21:52 Code Status & VTE Plan Code Status Full code VTE Prophylaxis Plan VTE Prophylaxis will be ordered: Yes Critical Care Time Critical Care Time: Yes Total Critical Care Time: 35 PG Care Time/CCT Total # of Minutes Spent Total Time Spent with Patient: Total time spent is greater than 50% in coordination of care (as documented) at patient's floor/unit and/or counseling patient: Critical Care Time: Yes Total Critical Care Time: 35 Coding Level of Care Code 34859 Initial Inpt Care Lvl 3 Diagnoses Admitted to intensive care unit Z78.9 STEMI (ST elevation myocardial infarction) I21.3 Hypertension I10 Dyslipidemia E78.5 Depression F32.9 Muscle spasm M62.838 Peripheral neuropathy G62.9 GERD (gastroesophageal reflux disease) K21.9 Additional Codes Critical Care Time - Critical Care Time: Yes ([id number]) Time Spent (min) 35
[2021-01-11] MEDS: METOPROLOL TARTRATE 25 MG TAB PO SCH (21:51)
[2021-01-12 05:26] LABS: Basophils # (auto) 0.02 K/uL (0-0.2); Basophils % (auto) 0.2 %; Eosinophils # (auto) 0.06 K/uL (0-0.5); Eosinophils % (auto) 0.7 %; Hematocrit (blood only) 38.2 % (37-47); Hemoglobin 13.2 g/dL (12.0-16.0); Immature Granulocytes # (auto) 0.02 K/uL (0.00-0.02); Immature Granulocytes % (auto) 0.2 %; Lymphocytes # (auto) 2.11 K/uL (1.2-3.4); Lymphocytes % (auto) 25.5 %; Mean Corpuscular Hemoglobin 32.8 pg (25-34); Mean Corpuscular Hgb Conc 34.6 g/dL (32-36); Mean Corpuscular Volume 94.8 fL (80-100); Mean Platelet Volume 9.6 fL (7.4-10.4); Monocytes # (auto) 0.87 K/uL (0.11-0.59); Monocytes % (auto) 10.5 %; Neutrophils % (auto) 62.9 %; Platelet Count 239 K/uL (130-400); RDW Coefficient of Variation 13.8 % (11.5-14.5); RDW Standard Deviation 47.7 fL (36.4-46.3); Red Blood Count 4.03 M/uL (4.2-5.4); White Blood Count 8.28 K/uL (4.8-10.8)
[2021-01-12 05:53] LABS: BUN Creatinine Ratio 19.7 (10-20); Calcium 8.8 mg/dl (8.5-10.1); Creatinine Clr Calc Pharmacy 126.9 ml/min; Est GFR (African American) 125.3; Est GFR (Non-African American) 108.2; Potassium 3.9 mmol/L (3.5-5.1)
--- NOTE | 2021-01-12 06:14 | Electrocardiogram Report ---
Test Reason : Blood Pressure : / mmHG Vent. Rate : 044 BPM Atrial Rate : 044 BPM P-R Int : 166 ms QRS Dur : 086 ms QT Int : 512 ms P-R-T Axes : 033 075 105 degrees QTc Int : 437 ms Age and gender specific ECG analysis Marked sinus bradycardia ST elevation consider inferior injury or acute infarct ACUTE [place] / STEMI Consider right ventricular involvement in acute inferior infarct Abnormal ECG No previous ECGs available Confirmed by Chance Orozco ([id number]) on 01/12/2021 6:14:08 AM Referred By: REFERRED SELF Confirmed By:Chance Orozco
--- NOTE | 2021-01-12 06:23 | Electrocardiogram Report ---
Test Reason : Blood Pressure : / mmHG Vent. Rate : 049 BPM Atrial Rate : 049 BPM P-R Int : 130 ms QRS Dur : 090 ms QT Int : 522 ms P-R-T Axes : 044 066 069 degrees QTc Int : 471 ms Sinus bradycardia Otherwise normal ECG When compared with ECG of 10-JAN-2021 23:01, No significant change was found Confirmed by Chance Orozco ([id number]) on 01/12/2021 6:23:22 AM Referred By: REFERRED SELF Confirmed By:Chance Orozco
[2021-01-12] MEDS ORDERED: lisinopril 10 MG TAB PO SCH (09:00)
[2021-01-12] MEDS: METOPROLOL TARTRATE 25 MG TAB PO SCH (09:19)
[2021-01-12] MEDS: ASPIRIN 81 MG ECTAB PO SCH (09:19)
[2021-01-12] MEDS: PANTOprazole 40 MG TAB PO SCH (09:19)
[2021-01-12] MEDS: GABAPENTIN 300 MG CAP PO SCH (09:19)
[2021-01-12] MEDS: ROSUVASTATIN CALCIUM 20 MG TAB PO SCH (09:20)
[2021-01-12] MEDS: TICAGRELOR 90 MG TAB PO SCH (09:20)
--- NOTE | 2021-01-12 11:37 | Discharge Summary ---
Date of Service January 12, 2021 Admission HPI Per Admitting Provider The patient is a 55-year-old female with a past medical history including dyslipidemia, hypertension, neuropathy, depression, GERD, migraine, muscle spasm who presents to the emergency department with chest pain. She was taken to the [facility] emergently, and had 1 RCA stent placed with good outcome. Patient seen post procedure in the ICU reports her chest symptoms have completely resolved and has no other complaints. Principal Diagnosis ST elevation NH, coronary artery disease Discharge Exam Constitutional WD/WN, vitals as above Neck trachea midline, no thyromegaly Respiratory normal respiratory effort, lungs clear to auscultation Cardiovascular RRR, no murmur, no edema Gastrointestinal (Abdomen) normal bowel sounds, soft, nontender, no hepatosplenomegaly Musculoskeletal no cyanosis or clubbing, extremities motor strength 5/5 Skin no rashes, warm and dry Neurologic patellar DTR's 2+ bilat, sensation intact and PERRL, EOMI, accommodation nl, no face palsy, no dysarthria Psychiatric A+Ox3, euthymic affect Lymphatic no cervical or axillary lymphadenopathy Discharge Data Allergies Allergy/AdvReac Type Severity Reaction Status Date / Time [id number] Allergy Mild Uncoded 04/10/06 15:39 Consultations 01/10/21 22:57 Consult Cardiac Rehabilitation Routine Consult Informatics Scientist Routine Procedures Performed Operation Date: 01/10/21 22:00 Actual Procedures s Cineradiography w/Routine Exam - Tyrel Merino MD p Cath, Left with Cors and Vent - Tyrel Merino MD s Aspiration/PCI w/JETT for Stemi - Tyrel Meirno MD Ordered Studies 01/10/21 21:58 CL Cath Imgs for PACS use only Stat Hospital Course (1) STEMI (ST elevation myocardial infarction): STEMI/status post placement of stent mid RCA lesion- No further chest discomfort post procedure Continue postprocedure medications as per Dr. Merino loaded with Brilinta in laboratory supervisor, continue 90mg BID for one year aspirin 81mg daily increase Crestor to 40mg daily lisinopril 10mg daily and metoprolol 25mg BID EF preserved on echo with akinesis of inferior/septal wall follow up with Dr. Merino (2) Hypertension: stopped amlodipine replaced with lisinopril and metoprolol for cardiac protection titrate up as tolerated as outpatient (3) Dyslipidemia: Placed on high-dose statin - Crestor 40mg daily (4) Depression: Continue duloxetine (5) Muscle spasm: Continue tizanidine and methocarbamol (6) Peripheral neuropathy: Continue gabapentin (7) GERD (gastroesophageal reflux disease): Continue pantoprazole (8) Tobacco abuse: educated on importance in quitting smoking she is committed, will speak with PCP Total Time Total Time Spent Total Time Spent (In Minutes): 33 Total Time Includes: Examination of the Patient, Discharge Planning, Medication Reconciliation and Communication With Other Providers Discharge Plan Discharge Items Patient Disposition: Home - Self-Care Reason For Visit: STEMI Discharge Diagnosis: ST elevation myocardial infarction (acute heart attack) Tobacco abuse Diffuse coronary artery disease Condition on Discharge: Good Goals: medical management of coronary disease stop smoking lifestyle changes with healthy diet and exercise Activity: Per Instructions section Sexual Activity: Wait until after follow-up appointment Exercise/Sports: Wait until after follow-up appointment Driving/Machine Use: No limitations Weightbearing: Full weightbearing Non-emergency contact: Primary Care Provider and Cloud Consultant Call non-emergency contact if: you have any medication questions and your symptoms worsen Follow-up/Referrals: Tyrel Merino MD [Physician] - 01/27/21 10:00 am (Please follow up with Dr. Merino on 01/27/21 at 10:00 am. Please arrive to the office at 9:45 am for your appointment. If you are unable to keep this appointment, please call the office to reschedule at [phone].) PCP,NO [Primary Care Provider] - Diet: Heart Healthy Addtl Attending Provider Instructions: Medications: - BRILINTA: 90mg twice a day, will need to take this for one year to help keep stent open, take with aspirin - ASPIRIN: 81mg daily, will take this indefinitely - CRESTOR: dose increased to 40mg daily, very important as it can prevent future heart attacks - LISINOPRIL: 10mg daily, new blood pressure medication, it is recommended with coronary disease, helps preserve heart function - METOPROLOL: 25mg twice a day, helps control blood pressure and heart rate, helps reduce strain on heart Coronary disease, STEMI treated with drug eluting stent by Dr. Merino echocardiogram shows that EF is preserved at 55-60% the medications that you are prescribed are proven to prevent future heart attacks, stabilize plaques and preserve heart function see above please follow heart healthy diet (low salt, low fat/cholesterol) and get exercise 4x a week (wait until cleared by cardiology to exercise) stop smoking cigarettes to reduce risk of future heart attack Migraine headache: sumatriptan is CONTRAINDICATED with coronary disease so you can no longer use this for headaches discuss alternatives with PCP Pending Studies at Discharge: No Stand-Alone Forms: My [facility], Smoking Cessation Medications and DC Order Prescriptions: New lisinopril 10 mg Tablet 10 mg PO QAM 30 Days Qty: 30 RF: 3 nitroglycerin [Nitrostat] 0.4 mg Tablet, Sublingual 0.4 mg sublingual UD PRN (Reason: chest pain) 30 Days Qty: 60 RF: 0 rosuvastatin [Crestor] 20 mg Tablet 40 mg PO DAILY 30 Days Qty: 60 RF: 3 metoprolol tartrate 25 mg Tablet 25 mg PO BID 30 Days Qty: 60 RF: 3 Brilinta 90 mg Tablet 90 mg PO BID 30 Days Qty: 60 RF: 3 aspirin 81 mg Tablet,Delayed Release (Dr/Ec) 81 mg PO QAM 30 Days Qty: 30 RF: 3 Continued tizanidine 4 mg tablet 4 mg PO TID PRN (Reason: ud) RF: 0 methocarbamol 750 mg tablet 750 mg PO TID PRN (Reason: ud) RF: 0 pantoprazole 40 mg tablet,delayed release (DR/EC) 40 mg PO DAILY RF: 0 oxycodone-acetaminophen 10-325 mg tablet 1 tab PO TID PRN (Reason: Pain, Severe) RF: 0 gabapentin 300 mg capsule 300 mg PO TID RF: 0 duloxetine 60 mg capsule,delayed release(DR/EC) 60 mg PO BID RF: 0 Discontinued sumatriptan succinate 100 mg tablet 100 mg PO BID PRN (Reason: Migraine Headache) RF: 0 amlodipine 10 mg tablet 10 mg PO DAILY RF: 0 rosuvastatin 20 mg tablet 20 mg PO DAILY RF: 0 Discharge Orders: Discharge Order (Routine); Ordered 01/12/21 Ordered By: Link García/Other Patient Handouts: 5 Steps for Eating Healthier, A1C Admission Data Admit Date/Time: 01/10/21 22:57 Attending Provider: Link Ramirez Admit Provider: Tyrel Merino Primary Care Provider: PCP,NO Other Providers: José Miguel Holland Other Interventions: Discharge Summary Assessment (RN) Last Done: 01/12/21 11:45 Coding Level of Care Code D/C Day Management >30 mins Diagnoses STEMI (ST elevation myocardial infarction) I21.3 Hypertension I10 Dyslipidemia E78.5 Depression F32.9 Muscle spasm M62.838 Peripheral neuropathy G62.9 GERD (gastroesophageal reflux disease) K21.9 Tobacco abuse Z72.0
--- NOTE | 2021-01-13 00:24 | Cardiology Progress Note ---
Date of Service January 13, 2021 Assessment & Plan (1) Coronary artery disease: Post PCI with JETT to RCA Moderate to severe residual LAD, circumflex disease 2. Preserved LV function with inferior wall motion abnormality 3. Dyslipidemia 4. Hypertension Feeling well, chest pain-free. Okay from a cardiac standpoint for discharge today. Continue DAPT with aspirin, ticagrelor Continue metoprolol to 25 mg twice daily Continue lisinopril to 10 mg daily Continue high intensity statin Follow-up with me in 2 weeks. Admission and Anticipated Discharge Date Admission Date: January 10, 2021 Subjective Feeling well. No recurrent chest pain. No new complaints. Ready to go home Telemetry reviewedno events Review of Systems Review of Systems: All systems reviewed & are unremarkable except as noted in HPI & below Physical Exam Physical Exam: General: Comfortable HEENT: Sclerae anicteric Lungs: Clear to auscultation Cardiac: Regular rate Abdomen: Soft, nontender Extremities: Right radial artery access site with ecchymosis but no hematoma. Distal pulse and sensation intact. Neuro: Nonfocal Psych: Alert orient x3, normal affect and mood PG Care Time/CCT Total # of Minutes Spent Total Time Spent with Patient: Total time spent is greater than 50% in coordination of care (as documented) at patient's floor/unit and/or counseling patient: Coding Level of Care Code 58022 Subseq Hosp Care Lvl 2 Diagnoses Coronary artery disease I25.10
== END 2021-01-12 12:24 | disposition home or self-care (01) | DRG 247 ==
LOC: ED 21:48 → CC 22:02 → SUATTDRO 22:57 → 1E 22:57

== ENCOUNTER 2023-11-02 09:47 | Inpatient (IN) ==
[2023-11-02] MEDS ORDERED: MIDAZOLAM HCL 1 MG/ML 2ML VIAL ONE ×7 (10:11→17:54)
[2023-11-02] MEDS ORDERED: fentaNYL citrate PF 100 MCG/2 ML VIAL ONE ×6 (10:11→17:55)
[2023-11-02] MEDS ORDERED: niCARdipine HCL INJ 2.5 MG/ML 10 ML AMP ONE ×2 (10:11→17:11)
[2023-11-02] MEDS ORDERED: HEPARIN (PORCINE) 1000 UNIT/ML 10 ML (CATH LAB USE ONLY) ONE ×3 (10:11→17:11)
[2023-11-02] MEDS ORDERED: NITROGLYCERIN/D5W 100MCG/ML 20ML SYR ONE ×2 (10:12→17:12)
[2023-11-02] MEDS ORDERED: ASPIRIN 81 MG CHEW ONE (10:13)
[2023-11-02] MEDS ORDERED: POTASSIUM CHLORIDE 10 MEQ TABCR PO ONE (10:18)
--- NOTE | 2023-11-02 10:31 | Pre Anesthesia Assessment ---
Date of Service November 02, 2023 Pre Sedation Assessment Vital Signs Pulse Resp BP Pulse Ox O2 Del Method 11/02/23 09:56 59 L 18 177/107 H 97 Room Air Cardiovascular + regular rate Respiratory + respiratory effort normal Pre-Sedation Airway Assessment Smoking Status: Former smoker Hx Sleep Apnea: No Hx Difficult Intubation: No Short, Thick Neck: No Thyromental Distance: > or= 3.5 Finger Breadths Oral Cavity: + Dentures Mallampati Class: III ASA: ASA3 NPO Status Date of Last Intake of Fluids: 11/01/23 Time of Last Intake of Fluids: 17:30 Date of Last Intake of Solid Food: 11/01/23 Time of Last Intake of Solid Foods: 17:30 Procedure Planning Contraindications for Sedation: none Current Medications Reviewed: Yes Notes The planned sedation has been discussed with the patient. Informed Consent was obtained. I have identified the patient, determined the appropriateness of sedation and have assessed the patient immediately prior to the procedure. All medicine(s) and interventions are by my order.
--- NOTE | 2023-11-02 10:31 | History & Physical Bridge Note ---
Date of Service November 02, 2023 History & Physical Bridge Note I have examined the patient, reviewed the History & Physical and in the interval since the performance of the History & Physical I have noted the following changes of clinical significance: no changes noted
[2023-11-02] MEDS ORDERED: IODIXANOL (VISIPAQUE) 320 MG/ML 100ML IV ONE (10:32)
[2023-11-02] MEDS ORDERED: diphenhydrAMINE 50 MG/ML VIAL ONE ×2 (11:03→17:57)
[2023-11-02] MEDS ORDERED: NITROGLYCERIN SL 0.4 MG/TAB TAB ONE ×2 (13:23→14:08)
--- NOTE | 2023-11-02 13:33 | Post Anesthesia Assessment ---
Date of Service November 02, 2023 Post Sedation Assessment Vital Signs Pulse Resp BP Pulse Ox O2 Del Method 11/02/23 09:56 59 L 18 177/107 H 97 Room Air Recovery Score Activity: Moves 4 extremities Respiration: Deep Breath/Cough Circulation: +/-20% PreAnes Value Consciousness: Fully Awake Oxygen Saturation: O2 needed for >90% Discharge Sedation Level of Care: Fast Track Phase II Post Sedation Plan On clinical assessment, the patient appears to have tolerated the sedation without complications. Patient is recovering as anticipated. Patient will continue to be monitored by nursing and may be discharged when s edation discharge criteria are met per below protocol. Upon Completions of procedure up to 15 minutes continue every 5 minute vital signs and the P.A.R. score; then discharge to a Phase I or Fast Track to Phase II per the following guidelines: * Discharge Patient to appropriate Phase II area if PAR is 8 or greater or return to pre- procedure baseline. The post - procedure orders will be as directed. * If PAR score is less than 8 or not return to pre-procedure baseline then patient will follow Phase I monitoring till PAR is reached for Phase II. The Phase I may be done in procedure room or may call to secure a Phase I area. * If naloxone or flumazenil are used for reversal, hold in Phase I for continued monitoring from when last reversal dose was given for a minimum of 60 minutes or longer pending the nurse and/or physician discretion of patient condition before discharge to Phase II. Please call the Sedation Physician to re-evaluate and complete post-note for discharge to Phase II area. Do NOT discharge from procedure sedation or Phase 1 until post- sedation evaluation note is complete by procedure /sedation MD Sedation Discharge Instructions to be given to the patient at discharge to home.
[2023-11-02] MEDS ORDERED: NITROGLYCERIN SL 0.4 MG/TAB TAB SL PRN (13:39)
[2023-11-02] MEDS ORDERED: ONDANSETRON INJ 2 MG/ML 2 ML VIAL IV PRN (13:39)
--- NOTE | 2023-11-02 13:39 | Cardiac Catheterization ---
[facility] Data: Nurse Navigator Cardiac Status Clinical evaluation leading to the procedure CAD Presenation: Unstable angina Anginal Classification: CCS IV Diagnostic Physicians Name: Frank Merino MD Closure Device Recommendations: PCI without planned CABG Cardiac Cath Procedure Full Procedure Date November 02, 2023 Pre-Procedure Diagnosis Pre-Procedure Diagnosis: Angina and CAD AUC Score AUC Score: 7 Post-Procedure Diagnosis Post-Procedure Diagnosis: Severe CAD and Successful PCI Procedure(s) Performed Procedure(s) Performed: Coronary Angiography, Left Heart Cath, Drug Eluting Stent and IVUS Crosstie Inspector Frank Merino MD Motor Vehicle Assembler(s) Yuval Estimated Blood Loss Estimated Blood Loss: 25 Medication(s) Medication(s): Fentanyl, Heparin, Lidocaine 1%, Nicardipine, Nitroglycerin and Versed Medication(s): Ticagrelor Summary of Findings Indication: Accelerating angina Access: 6 Fr right radial artery Catheters: [place], EBU 3.5 guide Findings: LM -medium caliber, mildly calcified, no significant disease LAD -medium caliber, heavily calcified proximally, 50-60% ostial, diffuse proximal disease up to 50%, 70% mid disease at takeoff of small D1, 90+% focal stenosis just after D2. distal vessel small and tapers to apex. Medium caliber D2 with 50% ostial stenosis. Circumflex -medium caliber calcified, diffuse 50% mid segment disease. Gives of a single medium caliber OM with no significant disease. RCA -dominant, medium caliber, heavily calcified, mid RCA stent widely patent, 30% diffuse latemid disease, 30 % right posterior AV branch. PDA with 50-60% ostial stenosis. LVEDP - 4 -- PCI -- Antithrombotic therapy: Heparin, ticagrelor Procedure: Left main cannulated with EBU 3.5 guide Pre-procedure flow THOMAS 3 Duco Polisher 50 wire passed across lesion into distal LAD Morris IVUS catheter placed to earlymid LAD stenosis, unable to pass further down vessel. Pullback revealed heavily calcified disease in earlymid/lateproximal intermediate disease, eccentric calcified plaque at LAD ostium (MLA 4.7 mm, 50% by IVUS). Minimal left main disease no clear ostial circumflex disease. Mid back to proximal LAD disease predilated with 2.0 compliant balloon Whisper wire placed into second diagonal Shockwave intravascular lithotripsy to earlymid LAD with 2.5 balloon (20 pulses) Mid LAD at bifurcation with D2 further dilated with 2.5 balloon With the aid of a telescope support catheter mid LAD across takeoff of D2 stented with 2.5 x 26 mm [place] drug-eluting stent Stent postdilated with 2.5 NC balloon Second diagonal rewired with housekeeping and laundry team leader 50 wire Proximal to mid LAD stented with second JETT (2.75 x 22 mm [place]) ending just just distal to LAD ostium Attempted to rewire back into second diagonal unsuccessful Proximal LAD stent postdilated with 3.0 NC Wire removed from second diagonal with significant stenosis at D2 ostium which improved with IC vasodilators Post procedure THOMAS 3 flow, stent well expanded with minimal residual stenosis and no apparent cardiac complications. Arterial Closure: TR band Summary: 1. Multivessel coronary artery disease - heavily calcified, 50% ostial LAD (eccentric 50% by IVUS), sequential 70% early-mid LAD and 90% mid LAD at bifurcation with D2 50% mid circumflex widely patent mid RCA stent. 50% ostial RPDA 2. Normal intracardiac filling pressure 3. Successful PCI of proximal to mid LAD extending across takeoff of D2 with 2 overlapping drug-eluting stents (2.75 x 22, 2.5 x 26 mm [place]; postdilated with 3.0 NC). Recommendations: Continue extended DAPT with aspirin, ticagrelor Continue current antianginal therapy (metoprolol, Imdur, Ranexa) Continued ASCVD risk factor modification. Will add daily colchicine Cardiac rehab In future if recurrent anginal symptoms consider FFR of residual ostial LAD, mid LCx, ostial RPDA. Hemodynamics Rest Ao:: 133/73/100 Final Ao: 137/84/108 LV: 140/3 Recommendations Recommendations: PCI without planned CABG Specimens Specimens: None Radiation Exposure (mGy) 8018 Contrast (mls) 200 Anesthesia Moderate 4524-4856 Procedural Complication(s) None Disposition Nurse Navigator Holding/Recovery I attest to the content of the Intraoperative Record and any orders documented therein. Any exceptions are noted below. Rec[employer] Card Cath Procedure Codes Cardiac Catheterization Procedure 1: Cardiovascular Cath Procedures: 47071 Coronaries and LHC (+/-LV) Therapeutic Services & Ancillary Procedure 1: Cardiovascular Tx and Anc Procedures: 06090 IV Ultrasound (Coronary or Graft) Moderate Sedation Procedure 1: Sedation/Anesthesia: 79071 Mod Sedation by the same physician;Init15 Min Child Age 5 & Up Procedure 2: Sedation/Anesthesia: 44840 Mod Sedation by the same physician; Ea [id number] Minutes Stenting Procedure 1: Cardiovascular Stent Procedures: 55182 Perc transcatheter placement of intracoronary stent(s), with ang PG Care Time/CCT Total # of Minutes Spent Total Time Spent with Patient: Total time spent is greater than 50% in coordination of care (as documented) at patient's floor/unit and/or counseling patient:
[2023-11-02] MEDS ORDERED: SODIUM CHLORIDE 0.9% 1,000 ML IV SCH (13:45)
[2023-11-02] MEDS ORDERED: NITROGLYCERIN 2% OINTMENT 30GM TUBE EXT ONE (14:42)
[2023-11-02] MEDS: GABAPENTIN 300 MG CAP PO SCH ×2 (16:24→20:50)
[2023-11-02] MEDS ORDERED: oxyCODONE/ACETAMINOPHEN 10-325 TAB PO PRN (16:46)
[2023-11-02] MEDS ORDERED: KETOROLAC TROMETHAMINE 15 MG/ML VIAL IV ONE (16:49)
[2023-11-02] MEDS: MoRPHine SULFATE 4 MG/ML 1 ML CARP\\VIAL IV PRN ×2 (16:55→21:12)
[2023-11-02] MEDS ORDERED: NITROGLYCERIN 2% OINTMENT 30GM TUBE EXT SCH (17:00)
[2023-11-02] MEDS ORDERED: NOREPINEPHRINE/D5W 4 MG/250 ML IV ONE (17:14)
[2023-11-02] MEDS ORDERED: ATROPINE SULFATE 0.1 MG/ML 10ML SYR IV ONE (17:16)
[2023-11-02] MEDS ORDERED: EPTIFIBATIDE 2 MG/ML 10 ML VIAL (CATH LAB USE ONLY) IV ONE (17:48)
[2023-11-02] MEDS ORDERED: EPTIFIBATIDE 0.75 MG/ML 75MG VIAL (CATH LAB USE ONLY) IV ONE (17:54)
[2023-11-02] MEDS ORDERED: NITROGLYCERIN/D5W 100 MCG/ML BTL ONE (18:10)
--- NOTE | 2023-11-02 18:32 | Post Anesthesia Assessment ---
Date of Service November 02, 2023 Post Sedation Assessment Vital Signs Temp Pulse Pulse Resp BP BP BP 11/02/23 17:00 89/66 L 11/02/23 17:00 54 L 17 11/02/23 16:50 58 L 27 H 11/02/23 16:45 123/79 11/02/23 16:45 60 27 H 11/02/23 16:40 56 L 28 H 11/02/23 16:32 60 22 11/02/23 16:32 123/88 11/02/23 16:30 63 26 H 11/02/23 16:20 52 L 26 H 11/02/23 16:16 59 L 20 11/02/23 16:16 138/82 11/02/23 16:10 58 L 18 11/02/23 16:00 150/109 H 11/02/23 16:00 58 L 21 11/02/23 16:00 61 11/02/23 15:50 62 17 11/02/23 15:42 60 24 11/02/23 15:41 60 18 148/104 H 11/02/23 15:34 97.5 F L 59 L 16 156/108 H 11/02/23 15:00 58 L 18 123/88 11/02/23 14:45 58 L 18 142/93 H 11/02/23 14:30 61 18 136/90 11/02/23 14:15 61 18 136/90 11/02/23 14:00 58 L 18 144/105 H 11/02/23 13:40 60 18 149/100 H 11/02/23 13:25 55 L 18 165/107 H 11/02/23 09:56 59 L 18 177/107 H Pulse Ox O2 Del Method 11/02/23 17:00 11/02/23 17:00 99 11/02/23 16:50 98 Room Air 11/02/23 16:45 11/02/23 16:45 99 11/02/23 16:40 96 11/02/23 16:32 97 11/02/23 16:32 11/02/23 16:30 97 11/02/23 16:20 97 11/02/23 16:16 97 Room Air 11/02/23 16:16 11/02/23 16:10 96 11/02/23 16:00 11/02/23 16:00 97 11/02/23 16:00 11/02/23 15:50 98 11/02/23 15:42 98 11/02/23 15:41 97 Room Air 11/02/23 15:34 98 Room Air 11/02/23 15:00 96 Room Air 11/02/23 14:45 94 Room Air 11/02/23 14:30 94 Room Air 11/02/23 14:15 94 Room Air 11/02/23 14:00 95 Room Air 11/02/23 13:40 95 Room Air 11/02/23 13:25 95 Room Air 11/02/23 09:56 97 Room Air Recovery Score Activity: Moves 4 extremities Respiration: Deep Breath/Cough Circulation: +/-20% PreAnes Value Consciousness: Fully Awake Oxygen Saturation: > 92% On Room Air Post Anesthesia Score: 10 Discharge Sedation Level of Care: Fast Track Phase II Post Sedation Plan On clinical assessment, the patient appears to have tolerated the sedation without complications. Patient is recovering as anticipated. Patient will continue to be monitored by nursing and may be discharged when sedation discharge criteria are met per below protocol. Upon Completions of procedure up to 15 minutes continue every 5 minute vital signs and the P.A.R. score; then discharge to a Phase I or Fast Track to Phase II per the following guidelines: * Discharge Patient to appropriate Phase II area if PAR is 8 or greater or return to pre- procedure baseline. The post - procedure orders will be as directed. * If PAR score is less than 8 or not return to pre-procedure baseline then patient will follow Phase I monitoring till PAR is reached for Phase II. The Phase I may be done in procedure room or may call to secure a Phase I area. * If naloxone or flumazenil are used for reversal, hold in Phase I for continued monitoring from when last reversal dose was given for a minimum of 60 minutes or longer pending the nurse and/or physician discretion of patient condition before discharge to Phase II. Please call the Sedation Physician to re-evaluate and complete post-note for discharge to Phase II area. Do NOT discharge from procedure sedation or Phase 1 until post- sedation evaluation note is complete by procedure /sedation MD Sedation Discharge Instructions to be given to the patient at discharge to home.
[2023-11-02] MEDS ORDERED: EPTIFIBATIDE BOLUS/DRIP IV STA (18:33)
[2023-11-02] MEDS ORDERED: STAT IV Infusion **Titration per Protocol STA (18:33)
[2023-11-02] MEDS ORDERED: NITROGLYCERIN/D5W 100MCG/ML 250 ML IV SCH (18:45)
[2023-11-02] MEDS: EPTIFIBATIDE 75 MG/100 ML VIAL IV SCH (19:00)
[2023-11-02] MEDS: RANOLAZINE 500 MG ER TAB PO SCH (20:50)
[2023-11-02] MEDS: METHOCARBAMOL 750 MG TABLET PO SCH (20:50)
[2023-11-02] MEDS: TICAGRELOR 90 MG TAB PO SCH (20:51)
[2023-11-02] MEDS: DULoxetine HCL 60 MG CAP PO SCH (20:51)
[2023-11-02] MEDS: COLCHICINE 0.6 MG TAB PO SCH (20:52)
[2023-11-02] MEDS: METOPROLOL TARTRATE 25 MG TAB PO SCH (20:52)
--- NOTE | 2023-11-02 22:15 | Cardiac Catheterization ---
[facility] Data: [place] Cardiac Status Clinical evaluation leading to the procedure CAD Presenation: Non STEMI Anginal Classification: CCS IV Diagnostic Physicians Name: Frank Merino MD Closure Device Recommendations: PCI without planned CABG Cardiac Cath Procedure Full Procedure Date November 02, 2023 Pre-Procedure Diagnosis Pre-Procedure Diagnosis: Angina and CAD AUC Score AUC Score: 8 Post-Procedure Diagnosis Post-Procedure Diagnosis: Severe CAD and Unsuccessful PCI Procedure(s) Performed Procedure(s) Performed: Coronary Angiography and Ultrasound Guided Vascular Access Brickmason Supervisor Frank Merino MD Gas Compressor Operator(s) Emily Estimated Blood Loss Estimated Blood Loss: 10 Medication(s) Medication(s): Diphenhydramine, Fentanyl, Heparin, Integrilin, Lidocaine 1% and Versed Summary of Findings Indication: Recurrent angina following PCI. Patient underwent complex PCI of heavily calcified LAD disease extending across bifurcation with second diagonal. Jailed second diagonal with compromised flow during procedure that seemed resolved with IC vasodilators at completion. Approximately 3 hours after procedure patient developed worsening chest pain, nausea. ECG with dynamic ST changes. Had bradycardia and borderline hypotension requiring atropine and IV fluids. Access: 6 Fr right common femoral artery under ultrasound Catheters: EBU 3.5 guide, JL 3.5 guide Findings: Previously placed LAD stents widely patent. Jailed second diagonal with 95+% ostial stenosis and THOMAS I flow. LM -medium caliber, mildly calcified, no significant disease LAD50 to 60% ostial stenosis, proximal to mid stents widely patent. Distal circumflex without significant disease. D2 as above Circumflex -medium caliber calcified, diffuse 50% mid segment disease. Gives of a single medium caliber OM with no significant disease. --Attempted PCI -- Antithrombotic therapy: Heparin, ticagrelor, Integrilin Procedure: Left main cannulated with EBU 3.5 guide Pre-procedure flow THOMAS 1 Multiple attempts made to wire into jailed diagonal. Repeatedly could cross stent struts but entered into dissection plane into diagonal. With airplane pilot commercial 50 wire appeared to cross back in 2 true lumen from dissection plane in mid vessel. Attempt made to confirm intraluminal position with OTW 1.5 balloon but was unable to pass balloon through stent struts into more distal diagonal. At completion of procedure had evidence of dissection and jailed diagonal with T IMI I-II flow distally. LAD flow THOMAS III and unchanged. Arterial Closure: Angio-Seal Summary: 1.95+% ostial stenosis/dissection of jailed small to medium second diagonal. 2. Unsuccessful attempted PCI of jailed second diagonal. Recommendations: Medical management of diagonal disease. Risk of additional complication higher than potential benefit of further attempts at intervention. Return to ICU for continued monitoring Started on Integrilin and nitroglycerin infusions Continue extended DAPT with aspirin, ticagrelor Hemodynamics Rest Ao:: 155/102/125 Final Ao: 170/108/130 LV: -- Recommendations Recommendations: PCI without planned CABG Specimens Specimens: None Radiation Exposure (mGy) 3680 Contrast (mls) 100 Anesthesia Moderate 5983-6441 Procedural Complication(s) None Disposition [place] Holding/Recovery I attest to the content of the Intraoperative Record and any orders documented therein. Any exceptions are noted below. [facility] Card Cath Procedure Codes Cardiac Catheterization Procedure 1: Cardiovascular Cath Procedures: 83220 Coronaries Moderate Sedation Procedure 1: Sedation/Anesthesia: 07411 Mod Sedation by the same physician;Init15 Min Child Age 5 & Up Procedure 2: Sedation/Anesthesia: 87556 Mod Sedation by the same physician; Ea [id number] Minutes PG Care Time/CCT Total # of Minutes Spent Total Time Spent with Patient: Total time spent is greater than 50% in coordination of care (as documented) at patient's floor/unit and/or counseling patient:
[2023-11-03] MEDS: tiZANidine HCL 4 MG TABLET PO PRN ×2 (00:42→20:23)
[2023-11-03] MEDS: MoRPHine SULFATE 4 MG/ML 1 ML CARP\\VIAL IV PRN ×5 (01:14→20:35)
[2023-11-03] MEDS ORDERED: diphenhydrAMINE 50 MG/ML VIAL IV STA (01:32)
[2023-11-03] MEDS ORDERED: LORazepam 1 MG in SYRINGE 0.5 ML IV STA (01:39)
[2023-11-03] MEDS: EPTIFIBATIDE 75 MG/100 ML VIAL IV SCH ×2 (02:05→07:42)
[2023-11-03 04:44] LABS: Basophils # (auto) 0.01 K/uL (0.00-0.20); Basophils % (auto) 0.1 %; Hematocrit (blood only) 29.5 % (37.0-47.0); Hemoglobin 9.4 g/dl (12.0-16.0); Immature Granulocytes # (auto) 0.03 K/uL (0.01-0.20); Immature Granulocytes % (auto) 0.4 %; Lymphocytes % (auto) 14.1 %; Mean Corpuscular Hemoglobin 32.6 pg (25.0-34.0); Mean Corpuscular Hgb Conc 31.9 g/dL (32.0-36.0); Mean Corpuscular Volume 102.4 fL (80.0-100.0); Mean Platelet Volume 9.7 fL (9.4-12.4); Monocytes # (auto) 0.55 K/uL (0.11-0.59); Monocytes % (auto) 7.7 %; Neutrophils # (auto) 5.52 K/uL (1.40-6.50); Neutrophils % (auto) 77.7 %; Platelet Count 162 K/uL (130-400); RDW Coefficient of Variation 14.6 % (11.5-14.5); RDW Standard Deviation 54.7 fL (36.4-46.3); Red Blood Count 2.88 M/uL (4.20-5.40); White Blood Count 7.11 K/ul (4.8-10.8)
[2023-11-03 05:02] LABS: BUN Creatinine Ratio 28.8 (10-20); Calcium 8.3 mg/dl (8.6-10.3); Creatinine Clr Calc Pharmacy 111.7 ml/min; Est GFR (African American) 115.5 ml/min; Est GFR (Non-African American) 99.6 ml/min; Magnesium 1.9 mg/dl (1.7-2.4); Potassium 3.9 mmol/L (3.5-5.1)
[2023-11-03] MEDS: METOPROLOL TARTRATE 25 MG TAB PO SCH ×2 (08:15→09:35)
[2023-11-03] MEDS: TICAGRELOR 90 MG TAB PO SCH ×2 (08:15→20:26)
[2023-11-03] MEDS: COLCHICINE 0.6 MG TAB PO SCH ×2 (08:16→20:25)
[2023-11-03] MEDS: ASPIRIN 81 MG ECTAB PO SCH (08:17)
[2023-11-03] MEDS: GABAPENTIN 300 MG CAP PO SCH ×3 (08:17→20:24)
[2023-11-03] MEDS: PANTOprazole 40 MG TAB PO SCH (08:17)
[2023-11-03] MEDS: RANOLAZINE 500 MG ER TAB PO SCH ×2 (08:17→20:25)
[2023-11-03] MEDS: ROSUVASTATIN CALCIUM 20 MG TAB PO SCH (08:17)
[2023-11-03] MEDS: DULoxetine HCL 60 MG CAP PO SCH ×2 (08:17→20:24)
[2023-11-03] MEDS ORDERED: ISOSORBIDE MONO EXTENDED REL 60 MG TABCR PO SCH (09:00)
[2023-11-03 09:59] LABS: Hematocrit (blood only) 29.5 % (37.0-47.0); Hemoglobin 9.5 g/dl (12.0-16.0)
--- NOTE | 2023-11-03 11:27 | Cardiology Progress Note ---
Date of Service November 03, 2023 Assessment & Plan (1) Coronary artery disease: Plan: Post PCI with 2 JETT to LAD Inferior STEMI 12/2020 with JETT to RCA 2. Iatrogenic diagonal dissection/occlusion 3. Preserved LV function 4. Anemiastable hemoglobin 5. Hypertension 6. Chronic back pain Chest pain persists but improving. Hemodynamically stable. LV function preserved on echo, no signs of heart failure Brief ventricular ectopy. No apparent access site complications. Plan to continue supportive care and monitor on telemetry as completes infarct from second diagonal. Nitroglycerin and Integrilin infusion discontinued this morning Continue DAPT with aspirin, Brilinta Continue metoprolol. Continue Ranexa. Resume p.o. Imdur as BP allows Continue statin Pain control as needed Trend troponin to peak Likely discharge tomorrow or Sunday. Admission and Anticipated Discharge Date Admission Date: November 02, 2023 Subjective Periods of significant pain overnight requiring escalation of IV nitro drip and intermittent morphine. Pain still present this morning but improved. Nitro drip off. Telemetry reviewedPVCs and few episodes of NSVT (longest 15 beats). Echo reviewedpreserved LV function, old inferior wall motion abnormality. Trivial pericardial effusion. Review of Systems Review of Systems: All systems reviewed & are unremarkable except as noted in HPI & below Physical Exam Physical Exam: General: Comfortable HEENT: Sclerae anicteric Lungs: Clear to auscultation bilaterally, no crackles or wheezes Cardiac: Regular rate and rhythm, no murmurs. Vascular: Right radial artery access site with no ecchymosis, hematoma. Right DIRECTOR OF FINANCE pulse intact without hematoma Abdomen: Soft, nontender Extremities: Well perfused, no peripheral edema Neuro: Nonfocal Psych: Alert orient x3, normal affect and mood Results & Data Vital Signs (Past 12 Hours) Vital Signs Temp Pulse Resp BP Pulse Ox O2 Del Method 11/03/23 09:01 119/85 11/03/23 09:01 67 19 11/03/23 09:00 72 15 11/03/23 08:45 98/66 L 11/03/23 08:45 67 14 11/03/23 08:38 92/64 L 11/03/23 08:38 61 11/03/23 08:31 86/70 L 11/03/23 08:31 61 17 11/03/23 08:30 67 23 11/03/23 08:18 67 21 11/03/23 08:18 78/49 L 11/03/23 08:17 79/55 L 11/03/23 08:17 65 24 11/03/23 08:15 64 14 92 Room Air 11/03/23 08:04 70 21 11/03/23 08:04 95/62 L 11/03/23 08:00 70 16 11/03/23 08:00 97.9 F 11/03/23 08:00 61 11/03/23 07:45 87 94 11/03/23 07:31 66 18 11/03/23 07:31 119/92 11/03/23 07:30 67 23 11/03/23 07:15 110/68 11/03/23 07:15 67 23 92 11/03/23 07:01 114/78 11/03/23 07:01 65 20 92 11/03/23 07:00 69 92 11/03/23 04:00 97.7 F 11/03/23 03:45 71 17 93 11/03/23 03:45 96/74 L 11/03/23 03:30 71 16 93 11/03/23 03:30 93/78 L 11/03/23 03:15 112/76 11/03/23 03:15 76 17 93 11/03/23 03:00 73 19 92 11/03/23 03:00 117/80 11/03/23 02:45 126/88 11/03/23 02:45 73 16 11/03/23 02:34 143/91 H 11/03/23 02:34 72 22 92 11/03/23 02:00 74 18 92 11/03/23 02:00 173/116 H 11/03/23 01:45 150/106 H 11/03/23 01:45 81 21 92 11/03/23 01:30 133/100 11/03/23 01:16 71 16 88 L 11/03/23 01:16 155/105 H 11/03/23 01:00 121/97 11/03/23 01:00 67 18 88 L 11/03/23 00:00 64 11/03/23 00:00 138/92 11/03/23 00:00 72 17 89 L 11/03/23 00:00 98.1 F PG Care Time/CCT Total # of Minutes Spent Total Time Spent with Patient: Total time spent is greater than 50% in coordination of care (as documented) at patient's floor/unit and/or counseling patient: Coding Level of Care Code 32760 SUB INP/OBS CARE MIN Diagnoses Coronary artery disease I25.10
[2023-11-03] MEDS ORDERED: POTASSIUM CHLORIDE CRTAB 20 MEQ TABCR PO STA (11:28)
[2023-11-03] MEDS ORDERED: LORazepam 0.5 MG in SYRINGE 0.25 ML IV PRN (11:34)
[2023-11-03] MEDS ORDERED: SODIUM CHLORIDE 0.9% 1,000 ML IV SCH ×2 (12:00→13:04)
[2023-11-03] MEDS: MAGNESIUM OXIDE 400 MG TAB PO SCH (12:13)
--- NOTE | 2023-11-03 13:03 | XCELERA ---
[id number] \\[id number]
[2023-11-03] MEDS ORDERED: SODIUM CHLORIDE 0.9% 500 ML IV ONE ×2 (14:21→21:43)
[2023-11-03] MEDS: METHOCARBAMOL 750 MG TABLET PO SCH (20:24)
[2023-11-03] MEDS ORDERED: PHENYLEPHRINE HCL 25 MG/250 ML NSS IV ONE (21:43)
[2023-11-03] MEDS ORDERED: NALOXONE HCL 0.4 MG/1 ML VIAL/CARP ONE (21:56)
[2023-11-03] MEDS ORDERED: NALOXONE HCL 0.4 MG/1 ML VIAL/CARP IV STA ×2 (21:56→22:04)
[2023-11-03] MEDS ORDERED: STAT IV Infusion **Titration per Protocol STA (22:04)
[2023-11-03] MEDS: PHENYLEPHRINE/NSS 25 MG/250 ML BAG IV SCH (22:10)
--- NOTE | 2023-11-03 22:12 | Critical Care Consultation ---
Date of Consultation November 03, 2023 Assessment & Plan (1) Chronic back pain: (2) Muscle spasm: (3) GERD (gastroesophageal reflux disease): (4) Accidental overdose: (5) Coronary artery disease: (6) Depression: (7) Dyslipidemia: (8) Hypertension: Plan Reason Critically Ill: 58 YOF that is HD #2 post elective cardiac cath with 2 JETT stents to LAD and diagonal dissection/occlusion. She was progressing well until acute hypotensive episode this evening around 2200 requiring vasopressor support, and administration of Narcan. Narcan appeared to have resolution in her current mentation and hemodynamics. Neuro - Obtundation, Likely accidental Overdose CAM ICU: Negative - Obtundation improved following administration of Narcan x 2 0.2mg doses - Continue to follow - re-administer if needed or consider infusion if this is going to be recurrent - It is possible that the patient took more her own pills from her purse as this was in her bed with her prior to event however she also did receive her Tizanidine and Oxy at 2022 as well. - noted to have Oxycodone 5/325mg as well as Tizanidine in her purse - Hold further sedating medications as able Cardiac - Shock unspecified, CAD s/p JETT x2 to LAD - Acute hypotension requiring vasopressors and minimally volume responsive- DDX: Acute blood loss, worsening pericardial effusion, medication adverse effect or combination of the above - Bedside POCUS performed by myself that was not consistent with tamponade physiology- shared images with Dr. Merino and agrees that this has not changed much since his review earlier - Her acute hypotension is likely from Tizanidine as above - Continue with volume as needed and continue with supportive care wean and escalate vasopressors as clinically needed - CTA abdomen and pelvis - no acute RP bleed - Continue with her DAPT therapy per primary cardiology service - Re-introduce BB when able - Defer the rest of her disease modifiable medications to primary cardiology service Respiratory - No acute needs - Continue supportive care - consider adding on EtCO2 pending mentation and sedation levels GI - GERD - Continue PPI RENAL/LYTES - No acute needs - Follow renal indices as well as electrolyte replacements - NO acute needs ENDO - NO acute needs HEME - Anemia - Anemia Macrocytic- However downtrending hgb 12-->9.4-->7,5 - Concern as above associated with hypotension was concerned for occult blood loss - CTA abdomen/Pelvis- Negative for acute blood loss - Transfuse for HGB <8 with CAD- type and screen pending ID - No concern for infectious etiology at this time LINES/IV ACCESS - PIV x2, Continue use of these lines DVT PROPHYLAXIS - SCDs, ASA, [place], DISPO: ICU until hemodynamics proven stable I have personally spent 55 minutes of critical care time in the direct management of this patient. This is a life/limb threatening event. This includes time spent evaluating patient, direct bedside care, chart review, placing orders, interpretation of diagnostic studies, discussion with consultants, patient, and family members, as well as other required patient management activities. This time is exclusive of all separately billable procedures, and separate from and in addition to any other critical care service time. Thank you for allowing us to participate in the care of this patient. Please refer to my attending physician's documentation for any further recommendations. Supervising Physician Co-Signing Physician Notes Seen and examined. EMR reviewed. Discussed with critical care SAM. Please refer to my progress note from 11/04/2023 for additional details History of Present Illness Reason for Consultation: Acute Hypotension Requesting Physician: Frank Merino MD Attending Physician: Frank Merino MD History of Present Illness 58 YOF who is HD #2 s/p elective cath with JETT x2 to LAD and retake back secondary to recurrent chest pain and noted with diagonal dissection. She has medical history of CAD with STEMI 2020, HTN, Chronic back pain. Patient was doing well through the day with some mild hypotension noted and her previous BB was held. She had an echo performed earlier as well as later in the day by DR. Merino which did show a small but stable pericardial effusion. This evening patient had acute onset of hypotension to 70s/40s without compensative tachycardia. I was called directly by Dr. Merino for transfer to the ICU and evaluation. Upon entering room patient was sleepy but talking and this progressed to her snoring and mumbling. She did receive morphine around 2029 earlier in the shift, however she was getting this dose yesterday without diffic ulty. Bedside POCUS was performed, ECHO probe was placed on chest which was not consistent with tamponade physiology or a large effusion. She was receiving bolus of crystalloid that was infusing. She remained hypotensive and was started on Norsynephrine infusion for BP support while continued workup. Following bedside POCUS and clinical picture, patient was administered 0.2mg of IV Narcan. Patient immediately woke up and was confused of where she was and started conversing being more appropriate. She did get a more drowsy after and was given another 0.2 mg of Narcan with resolution of her drowsiness. She also had response to her HR and Blood pressure. She did have her purse in her bed with her as well as her make-up bag. RN looked through her bag and found Oxy 5/325 as well as Tizanidine bottles. Patient states she did not take anything, however her acute hypotension as well as response to Narcan is likely consistent. We will obtain a CTA of her abdomen and pelvis to evaluate for RP bleed secondary to her HGB downtrend today as well as right femoral access following her second cardiac cath. CODE: FULL Allergies Allergy/AdvReac Type Severity Reaction Status Date / Time lisinopril AdvReac Unknown Cough Verified 11/02/23 10:09 Home Medications Medication Instructions Recorded Confirmed Type duloxetine 60 mg capsule,delayed 60 mg PO BID 01/10/21 11/02/23 History release gabapentin 300 mg capsule 300 mg PO TID 01/10/21 11/02/23 History oxycodone-acetaminophen 10 mg-325 1 tab PO TID PRN Pain, Severe 01/10/21 11/02/23 History mg tablet pantoprazole 40 mg tablet,delayed 40 mg PO DAILY 01/10/21 11/02/23 History release tizanidine 4 mg tablet 4 mg PO TID PRN ud 01/10/21 11/02/23 History aspirin 81 mg tablet,delayed 81 mg PO QAM 30 days #30 tabs 01/12/21 11/02/23 Rx release metoprolol tartrate 25 mg tablet 25 mg PO BID 30 days #60 tabs 01/12/21 11/02/23 Rx rosuvastatin 20 mg tablet (Crestor) 40 mg (2 x 20 mg) PO DAILY 30 days 01/12/21 11/02/23 Rx #60 tabs ticagrelor 90 mg tablet (Brilinta) 90 mg PO BID 30 days #60 tabs 01/12/21 11/02/23 Rx methocarbamol 750 mg tablet 1,500 mg PO HS ud 09/08/21 11/02/23 History ranolazine 500 mg tablet,extended 500 mg PO BID #180 tabs 05/18/22 11/02/23 Rx release,12 hr (Ranexa) isosorbide mononitrate 120 mg 120 mg PO DAILY #30 tabs 06/06/22 11/02/23 Rx tablet,extended release 24 hr Patient History Medical History (Updated 11/03/23 @ 22:23 by HERVE Massey) Coronary artery disease GERD (gastroesophageal reflux disease) Peripheral neuropathy Muscle spasm Depression STEMI (ST elevation myocardial infarction) Hypertension Dyslipidemia ACS (acute coronary syndrome) Chest pain Surgical History History of hysterectomy History of cholecystectomy Family History Other Hypertension Social History Smoking Status: Former smoker Tobacco Type: Cigarettes Second Hand Exposure: No; Do You Dip or Chew Tobacco: No; Hx Alcohol Use: Yes Hx Substance Use: No Preferred Language: Chinese Communication Ability: Effective Beliefs That Will Affect Care: None Current Living Situation: Spouse Feels Safe at Home: Yes Assistive Devices: None Review of Systems Review of Systems: REVIEW OF SYSTEMS: Unable to initially perform secondary to sedated mentation Physical Exam Physical Exam: PHYSICAL EXAM: General: awakens to voice, but states just very tired and weak and then drifts back off to sleep Head: Normocephalic, atraumatic ENT: PERRLA, EOMI, no pharyngeal exudate, mucous membranes moist Neuro: AAO x 3, speech clear but slow, strength intact bilaterally 5/5, sensation intact and equal all extremities and dermatomes, no pronator drift Chest: equal rise and fall of the chest, no accessory muscle use, no heaves or thrills, Clear to auscultation, on room air, Cardiac: Regular rate and rhythm, telemetry reviewed- sinus bradycardia, skin warm dry, cap refill <3 seconds, peripheral pulses +2 no JVD, no murmur, no edema, right groin site with some brusing but no hematoma or bruit appreciated GI: NABS x 4 quadrants, soft, nontender to palpation, no rebound, guarding or tenderness, no pain in back or buttocks with deep palpation : Spontaneously voiding, no pain, no CVA tenderness, Skin: no rash or erythema Results & Data Results & Data Vital Signs (Past 12 Hours) Vital Signs Temp Pulse Pulse Resp BP BP Pulse Ox 11/03/23 20:01 73 18 94 11/03/23 20:01 133/70 11/03/23 20:00 76 18 94 11/03/23 19:00 120/72 11/03/23 19:00 73 22 95 11/03/23 19:00 36.6 C 11/03/23 16:00 69 11/03/23 15:30 104/68 11/03/23 15:30 66 93 11/03/23 15:15 91/67 L 11/03/23 15:15 65 19 95 11/03/23 15:00 36.6 C 11/03/23 15:00 65 19 94 11/03/23 15:00 96/67 L 11/03/23 14:45 65 18 95 11/03/23 14:45 101/63 11/03/23 14:30 85/64 L 11/03/23 14:30 75 16 93 11/03/23 14:15 92/63 L 11/03/23 14:15 67 20 11/03/23 14:00 96/64 L 11/03/23 14:00 66 22 90 11/03/23 13:45 65 17 90 11/03/23 13:31 69 18 91 11/03/23 13:31 81/59 L 11/03/23 13:30 70 20 11/03/23 13:22 86/57 L 11/03/23 13:22 76 25 H 11/03/23 13:15 85/46 L 11/03/23 13:15 67 19 90 11/03/23 13:00 63 20 93 11/03/23 13:00 87/58 L 11/03/23 12:57 87/52 L 11/03/23 12:57 67 17 93 11/03/23 12:46 81/50 L 11/03/23 12:46 68 17 93 11/03/23 12:31 88/55 L 11/03/23 12:31 66 19 92 11/03/23 12:00 76 19 11/03/23 11:46 92/68 L 02/03/24 11:46 76 22 11/03/23 11:26 36.7 C 75 18 95/57 L 95 11/03/23 11:23 95/57 L 11/03/23 11:23 72 18 11/03/23 11:17 74 21 11/03/23 11:00 75 16 11/03/23 10:30 103/81 11/03/23 10:30 69 15 95 11/03/23 10:17 111/78 11/03/23 10:17 70 19 94 O2 Del Method O2 Flow Rate 11/03/23 20:01 11/03/23 20:01 11/03/23 20:00 11/03/23 19:00 11/03/23 19:00 11/03/23 19:00 11/03/23 16:00 11/03/23 15:30 11/03/23 15:30 11/03/23 15:15 11/03/23 15:15 Nasal Cannula 2 11/03/23 15:00 11/03/23 15:00 11/03/23 15:00 11/03/23 14:45 11/03/23 14:45 11/03/23 14:30 11/03/23 14:30 11/03/23 14:15 11/03/23 14:15 11/03/23 14:00 11/03/23 14:00 11/03/23 13:45 11/03/23 13:31 11/03/23 13:31 11/03/23 13:30 11/03/23 13:22 11/03/23 13:22 11/03/23 13:15 11/03/23 13:15 11/03/23 13:00 Room Air 11/03/23 13:00 11/03/23 12:57 11/03/23 12:57 11/03/23 12:46 11/03/23 12:46 11/03/23 12:31 11/03/23 12:31 11/03/23 12:00 11/03/23 11:46 11/03/23 11:46 11/03/23 11:26 Room Air 11/03/23 11:23 11/03/23 11:23 11/03/23 11:17 11/03/23 11:00 11/03/23 10:30 11/03/23 10:30 11/03/23 10:17 11/03/23 10:17 Laboratory Results Abnormal lab results 11/03/23 11/03/23 Range/Units 04:31 09:43 RBC 2.88 L (4.20-5.40) M/uL Hgb 9.4 L 9.5 L (12.0-16.0) g/dl Hct 29.5 L 29.5 L (37.0-47.0) % MCV 102.4 H (80.0-100.0) fL MCHC 31.9 L (32.0-36.0) g/dL RDW Std Deviation 54.7 H (36.4-46.3) fL RDW Coeff of Evan 14.6 H (11.5-14.5) % Lymph # (Auto) 1.00 L (1.20-3.40) K/uL Sodium 134 L (136-145) mmol/L Creatinine 0.59 L (0.6-1.2) mg/dl BUN/Creatinine Ratio 28.8 H (10-20) Glucose 173 H (70-99(Fasting)) mg/dl Calcium 8.3 L (8.6-10.3) mg/dl Troponin I High Sens 8272.0 H* 47955.3 H* D (0-14) pg/ml Coding Level of Care Code 31950 CRITICAL CARE 1ST 30-74M Diagnoses Chronic back pain M54.9; G89.29 Muscle spasm M62.838 GERD (gastroesophageal reflux disease) K21.9 Accidental overdose T50.901A Coronary artery disease I25.10 Depression F32.9 Dyslipidemia E78.5 Hypertension I10
[2023-11-03] MEDS ORDERED: OPTIRAY 320 125ml IV ONE (22:23)
--- NOTE | 2023-11-03 22:28 | Electrocardiogram Report ---
Test Reason : Blood Pressure : / mmHG Vent. Rate : 058 BPM Atrial Rate : 058 BPM P-R Int : 152 ms QRS Dur : 088 ms QT Int : 488 ms P-R-T Axes : 069 062 065 degrees QTc Int : [address] elevation, consider early repolarization, pericarditis, or injury When compared with ECG of 31-OCT-2023 15:20, ST elevation now present in anterior and inferior leads Confirmed by Chance Orozco ([id number]) on 11/03/2023 10:28:32 PM Referred By: Madeline Simmons Confirmed By:Chance Orozco
--- NOTE | 2023-11-03 22:29 | Electrocardiogram Report ---
Test Reason : Blood Pressure : / mmHG Vent. Rate : 052 BPM Atrial Rate : 052 BPM P-R Int : 118 ms QRS Dur : 088 ms QT Int : 506 ms P-R-T Axes : 033 071 025 degrees QTc Int : [address] elevation, consider early repolarization, pericarditis, or injury When compared with ECG of 02-NOV-2023 14:24, No significant change was found Confirmed by Chance Orozco ([id number]) on 11/03/2023 10:29:44 PM Referred By: Madeline Simmons Confirmed By:Chance Orozco
--- NOTE | 2023-11-03 22:29 | Electrocardiogram Report ---
Test Reason : Blood Pressure : / mmHG Vent. Rate : 058 BPM Atrial Rate : 058 BPM P-R Int : 132 ms QRS Dur : 084 ms QT Int : 478 ms P-R-T Axes : 053 065 067 degrees QTc Int : [address] elevation, consider early repolarization, pericarditis, or injury When compared with ECG of 02-NOV-2023 13:26, No significant change was found Confirmed by Chance Orozco ([id number]) on 11/03/2023 10:29:10 PM Referred By: Madeline Simmons Confirmed By:Chance Orozco
--- NOTE | 2023-11-03 22:30 | Electrocardiogram Report ---
Test Reason : Blood Pressure : / mmHG Vent. Rate : 068 BPM Atrial Rate : 068 BPM P-R Int : 134 ms QRS Dur : 088 ms QT Int : 438 ms P-R-T Axes : 072 074 028 degrees QTc Int : 465 ms Normal sinus rhythm Nonspecific ST and T wave abnormality Abnormal ECG When compared with ECG of 02-NOV-2023 16:51, ST less elevated in Anterolateral leads Confirmed by Cahnce Orozco ([id number]) on 11/03/2023 10:30:35 PM Referred By: Madeline Simmons Confirmed By:Chance Orozco
--- NOTE | 2023-11-03 22:31 | Electrocardiogram Report ---
Test Reason : Blood Pressure : / mmHG Vent. Rate : 068 BPM Atrial Rate : 068 BPM P-R Int : 142 ms QRS Dur : 084 ms QT Int : 424 ms P-R-T Axes : 064 072 016 degrees QTc Int : 450 ms Normal sinus rhythm ST elevation consider anterior injury or acute infarct Abnormal ECG When compared with ECG of 02-NOV-2023 21:03, ST more elevated in Anterior leads Confirmed by Chance Orozco ([id number]) on 11/03/2023 10:31:27 PM Referred By: Madeline Simmons Confirmed By:Chance Orozco
[2023-11-03 22:52] LABS: Basophils # (auto) 0.01 K/uL (0.00-0.20); Basophils % (auto) 0.2 %; Eosinophils # (auto) 0.02 K/uL (0.00-0.50); Eosinophils % (auto) 0.4 %; Hematocrit (blood only) 22.6 % (37.0-47.0); Hemoglobin 7.5 g/dl (12.0-16.0); Immature Granulocytes # (auto) 0.02 K/uL (0.01-0.20); Immature Granulocytes % (auto) 0.4 %; Lymphocytes # (auto) 1.95 K/uL (1.20-3.40); Lymphocytes % (auto) 35.5 %; Mean Corpuscular Hemoglobin 33.9 pg (25.0-34.0); Mean Corpuscular Hgb Conc 33.2 g/dL (32.0-36.0); Mean Corpuscular Volume 102.3 fL (80.0-100.0); Mean Platelet Volume 10.3 fL (9.4-12.4); Monocytes # (auto) 0.65 K/uL (0.11-0.59); Monocytes % (auto) 11.8 %; Neutrophils # (auto) 2.85 K/uL (1.40-6.50); Neutrophils % (auto) 51.7 %; Platelet Count 112 K/uL (130-400); RDW Coefficient of Variation 14.8 % (11.5-14.5); RDW Standard Deviation 55.8 fL (36.4-46.3); Red Blood Count 2.21 M/uL (4.20-5.40)
--- NOTE | 2023-11-03 23:06 | XCELERA ---
[id number]
[2023-11-03 23:12] LABS: BUN Creatinine Ratio 28.6 (10-20); Calcium 7.5 mg/dl (8.6-10.3); Creatinine Clr Calc Pharmacy 105.4 ml/min; Est GFR (Non-African American) 97.5 ml/min; Potassium 3.9 mmol/L (3.5-5.1)
[2023-11-03 23:28] LABS: RBC Morphology Unremarkable
--- NOTE | 2023-11-03 23:57 | CT Scan Report ---
Exam(s): CTA ABDOMEN + PELVIS With Contrast IV Amt: 114 ML EXAM: CT Angiography Abdomen and Pelvis With Intravenous Contrast CLINICAL HISTORY: Reason for exam: eval for retroperitoneal bleed. TECHNIQUE: Axial computed tomographic angiography images of the abdomen and pelvis with intravenous contrast. CTDI is 76.4 mGy and DLP is 1289.87 mGy-cm. Automated exposure control was utilized for the study. A dose lowering technique was utilized adhering to the principles of ALARA. MIP reconstructed images were created and reviewed. CONTRAST: Patient received 114 ML of IV contrast COMPARISON: No relevant prior studies available. FINDINGS: VASCULATURE: Aorta: Mild aortobiiliac atherosclerotic calcifications. No aneurysm or dissection. Celiac trunk and mesenteric arteries: No acute findings. No occlusion or significant stenosis. Renal arteries: Moderate stenosis within the proximal right renal artery. None on the left. Iliac arteries: Mild atherosclerotic calcifications. No occlusion or significant stenosis. Small amount of fat stranding around the right common femoral artery potentially related to access attempt. Lung bases: Atelectasis at the lung bases. ABDOMEN: Liver: Unremarkable. No mass. Gallbladder and bile ducts: Cholecystectomy. No ductal dilation. Pancreas: Unremarkable. No ductal dilation. No mass. Spleen: Unremarkable. No splenomegaly. Adrenals: Unremarkable. No mass. Kidneys and ureters: Unremarkable. No hydronephrosis. No solid mass. Stomach and bowel: Colonic diverticulosis without diverticulitis. Moderate stool within the right hemicolon. No bowel obstruction. No inflammatory changes. PELVIS: Appendix: No findings to suggest acute appendicitis. Bladder: Unremarkable. No mass. Reproductive: Unremarkable as visualized. ABDOMEN and PELVIS: Intraperitoneal space: Unremarkable. No significant fluid collection. No free air. Retroperitoneal space: No retroperitoneal hematoma. Bones/joints: No acute fracture. No dislocation. Soft tissues: Unremarkable. Lymph nodes: Unremarkable. No enlarged lymph nodes. IMPRESSION: 1. No retroperitoneal hematoma. 2. Colonic diverticulosis without diverticulitis. 3. Moderate stool within the right hemicolon. 4. Atelectasis at the lung bases. Electronically signed by: Elvin Wise MD 11/03/23 23:56 PM
[2023-11-04 04:52] LABS: Hematocrit (blood only) 26.3 % (37.0-47.0); Hemoglobin 8.6 g/dl (12.0-16.0); Mean Corpuscular Hemoglobin 33.3 pg (25.0-34.0); Mean Corpuscular Hgb Conc 32.7 g/dL (32.0-36.0); Mean Corpuscular Volume 101.9 fL (80.0-100.0); Mean Platelet Volume 10.4 fL (9.4-12.4); Platelet Count 117 K/uL (130-400); RDW Coefficient of Variation 14.8 % (11.5-14.5); RDW Standard Deviation 55.4 fL (36.4-46.3); Red Blood Count 2.58 M/uL (4.20-5.40)
[2023-11-04 05:07] LABS: BUN Creatinine Ratio 30.2 (10-20); Calcium 8.2 mg/dl (8.6-10.3); Creatinine Clr Calc Pharmacy 125.2 ml/min; Est GFR (African American) 119.6 ml/min; Est GFR (Non-African American) 103.2 ml/min; Magnesium 1.9 mg/dl (1.7-2.4); Potassium 4.2 mmol/L (3.5-5.1)
[2023-11-04 05:34] LABS: Troponin I High Sensitivity 8603.1 pg/ml (0-14)
[2023-11-04] MEDS: PHENYLEPHRINE/NSS 25 MG/250 ML BAG IV SCH (08:29)
[2023-11-04] MEDS: ASPIRIN 81 MG ECTAB PO SCH (08:31)
[2023-11-04] MEDS: RANOLAZINE 500 MG ER TAB PO SCH (08:31)
[2023-11-04] MEDS: COLCHICINE 0.6 MG TAB PO SCH (08:31)
[2023-11-04] MEDS: MAGNESIUM OXIDE 400 MG TAB PO SCH (08:31)
[2023-11-04] MEDS: ROSUVASTATIN CALCIUM 20 MG TAB PO SCH (08:32)
[2023-11-04] MEDS: PANTOprazole 40 MG TAB PO SCH (08:32)
[2023-11-04] MEDS: TICAGRELOR 90 MG TAB PO SCH (08:32)
[2023-11-04 09:07] LABS: Phosphorus 2.3 mg/dl (2.5-4.9)
--- NOTE | 2023-11-04 09:13 | Critical Care Progress Note ---
Date of Service November 04, 2023 Assessment & Plan (1) Chronic back pain: (2) Muscle spasm: (3) GERD (gastroesophageal reflux disease): (4) Accidental overdose: (5) Coronary artery disease: (6) Depression: (7) Dyslipidemia: (8) Hypertension: Plan Reason Critically Ill: 58 YOF that is HD #2 post elective cardiac cath with 2 JETT stents to LAD and diagonal dissection/occlusion. She was progressing well until acute hypotensive episode this evening around 2200 requiring vasopressor support, and administration of Narcan. Narcan appeared to have resolution in her current mentation and hemodynamics. Recommendations: 1. Hypotension: Resolved. Suspect related to medications. Continue to watch hemodynamics closely. 2. Altered mental status: Secondary to polypharmacy. Holding narcotics. 3. Leg cramps: May be secondary to Crestor. Calcium and phosphate slightly low. Will use oral supplementation. Defer to cardiology on lipid-lowering therapy. Continue gabapentin as withdrawal may precipitate RLS symptoms 4. Anemia. No evidence of acute blood loss. CT of the abdomen negative for retroperitoneal hematoma. Continue to follow clinically. Disposition: Per cardiology. Admission and Anticipated Discharge Date Admission Date: November 02, 2023 Subjective Patient seen and examined. MR luciano. Discussed with cardiology as well as with the critical care SAM. This morning the patient is complaining only of leg cramps. She is not experiencing any chest pain or discomfort. No shortness of breath. She was up to use the commode. No syncope or presyncope. Review of Systems Review of Systems: All systems reviewed & are unremarkable except as noted in Subjective Physical Exam Constitutional: WD/WN, vitals as above Neck: trachea midline, no thyromegaly Respiratory: normal respiratory effort, lungs clear to auscultation Cardiovascular: RRR, no murmur, no edema Gastrointestinal (Abdomen): normal bowel sounds, soft, nontender, no hepatosplenomegaly Musculoskeletal: Extremities: extremities normal to inspection Skin: no rashes, warm and dry Neurologic: Nonfocal exam Lymphatic: no cervical lymphadenopathy Results & Data Results & Data Vital Signs (Past 12 Hours) Vital Signs Temp Pulse Resp BP Pulse Ox 11/04/23 07:40 110 H 11/04/23 07:38 65 11/04/23 07:30 76 0 L 78 L 11/04/23 07:15 66 18 92 11/04/23 07:15 116/74 11/04/23 07:00 115/72 11/04/23 07:00 63 18 94 11/04/23 06:45 106/67 11/04/23 06:45 63 16 96 11/04/23 06:30 61 16 96 11/04/23 06:30 107/68 11/04/23 06:16 60 17 93 11/04/23 06:16 106/65 11/04/23 06:01 58 L 13 90 11/04/23 06:01 129/69 11/04/23 05:45 109/68 11/04/23 05:45 61 17 95 11/04/23 05:00 107/67 11/04/23 05:00 56 L 16 97 11/04/23 04:30 99/61 L 11/04/23 04:30 58 L 14 92 11/04/23 04:00 110/65 11/04/23 04:00 56 L 19 95 11/04/23 03:31 59 L 23 93 11/04/23 03:31 105/75 11/04/23 03:13 36.5 C 11/04/23 03:00 54 L 12 100 11/04/23 03:00 115/66 11/04/23 02:00 108/69 11/04/23 02:00 56 L 0 L 100 11/04/23 01:30 96/69 L 11/04/23 01:30 56 L 16 94 11/04/23 01:00 107/66 11/04/23 01:00 56 L 17 96 11/04/23 00:32 74 27 H 11/04/23 00:32 103/73 11/04/23 00:00 58 L 11/04/23 00:00 97/64 L 11/04/23 00:00 58 L 17 93 11/03/23 23:36 36.5 C 11/03/23 23:30 99/74 L 11/03/23 23:30 55 L 16 93 11/03/23 23:10 100/60 11/03/23 23:10 58 L 29 H 11/03/23 23:00 96/62 L 11/03/23 22:59 100/52 L 11/03/23 22:59 56 L 17 11/03/23 22:50 56 L 25 H 11/03/23 22:50 99/59 L 11/03/23 22:41 118/76 11/03/23 22:41 53 L 19 11/03/23 22:34 128/65 11/03/23 22:34 57 L 18 11/03/23 22:01 93/69 L 11/03/23 22:01 56 L 23 95 11/03/23 21:56 55 L 15 92 11/03/23 21:56 86/57 L 11/03/23 21:51 74/46 L 11/03/23 21:51 56 L 16 72 L 11/03/23 21:42 62/36 L 11/03/23 21:42 59 L 18 80 L 11/03/23 21:39 51/36 L 11/03/23 21:39 55 L 18 94 11/03/23 21:29 62/41 L 11/03/23 21:29 57 L 17 95 11/03/23 21:22 56 L 20 79 L 11/03/23 21:22 64/38 L Critical Care Results & Data Vital Signs (Past 12 Hours) Vital Signs Temp Pulse Resp BP Pulse Ox 11/04/23 07:40 110 H 11/04/23 07:38 65 11/04/23 07:30 76 0 L 78 L 11/04/23 07:15 66 18 92 11/04/23 07:15 116/74 11/04/23 07:00 115/72 11/04/23 07:00 63 18 94 11/04/23 06:45 106/67 11/04/23 06:45 63 16 96 11/04/23 06:30 61 16 96 11/04/23 06:30 107/68 11/04/23 06:16 60 17 93 11/04/23 06:16 106/65 11/04/23 06:01 58 L 13 90 11/04/23 06:01 129/69 11/04/23 05:45 109/68 11/04/23 05:45 61 17 95 11/04/23 05:00 107/67 11/04/23 05:00 56 L 16 97 11/04/23 04:30 99/61 L 11/04/23 04:30 58 L 14 92 11/04/23 04:00 110/65 11/04/23 04:00 56 L 19 95 11/04/23 03:31 59 L 23 93 11/04/23 03:31 105/75 11/04/23 03:13 36.5 C 11/04/23 03:00 54 L 12 100 11/04/23 03:00 115/66 11/04/23 02:00 108/69 11/04/23 02:00 56 L 0 L 100 11/04/23 01:30 96/69 L 11/04/23 01:30 56 L 16 94 11/04/23 01:00 107/66 11/04/23 01:00 56 L 17 96 11/04/23 00:32 74 27 H 11/04/23 00:32 103/73 11/04/23 00:00 58 L 11/04/23 00:00 97/64 L 11/04/23 00:00 58 L 17 93 11/03/23 23:36 36.5 C 11/03/23 23:30 99/74 L 11/03/23 23:30 55 L 16 93 11/03/23 23:10 100/60 11/03/23 23:10 58 L 29 H 11/03/23 23:00 96/62 L 11/03/23 22:59 100/52 L 11/03/23 22:59 56 L 17 11/03/23 22:50 56 L 25 H 11/03/23 22:50 99/59 L 11/03/23 22:41 118/76 11/03/23 22:41 53 L 19 11/03/23 22:34 128/65 11/03/23 22:34 57 L 18 11/03/23 22:01 93/69 L 11/03/23 22:01 56 L 23 95 11/03/23 21:56 55 L 15 92 11/03/23 21:56 86/57 L 11/03/23 21:51 74/46 L 11/03/23 21:51 56 L 16 72 L 11/03/23 21:42 62/36 L 11/03/23 21:42 59 L 18 80 L 11/03/23 21:39 51/36 L 11/03/23 21:39 55 L 18 94 11/03/23 21:29 62/41 L 11/03/23 21:29 57 L 17 95 11/03/23 21:22 56 L 20 79 L 11/03/23 21:22 64/38 L Lab & Micro Results (Past 24 Hours) RBC 2.58 M/uL (4.20-5.40) L 11/04/23 WBC 5.10 K/ul (4.8-10.8) 11/04/23 Hgb 8.6 g/dl (12.0-16.0) L 11/04/23 Hct 26.3 % (37.0-47.0) L 11/04/23 MCV 101.9 fL (80.0-100.0) H 11/04/23 MCH 33.3 pg (25.0-34.0) 11/04/23 MCHC 32.7 g/dL (32.0-36.0) 11/04/23 RDW Standard Deviation 55.4 fL (36.4-46.3) H 11/04/23 RDW Coefficient of Variation 14.8 % (11.5-14.5) H 11/04/23 Plt Count 117 K/uL (130-400) L 11/04/23 MPV 10.4 fL (9.4-12.4) 11/04/23 Neutrophils (%) (Auto) 51.7 % 11/03/23 Lymphocytes (%) (Auto) 35.5 % 11/03/23 Monocytes # (Auto) 0.65 K/uL (0.11-0.59) H 11/03/23 Eosinophils # (Auto) 0.02 K/uL (0.00-0.50) 11/03/23 Immature Granulocyte % (Auto) 0.4 % 11/03/23 Neutrophils # (Auto) 2.85 K/uL (1.40-6.50) 11/03/23 Lymphocytes # (Auto) 1.95 K/uL (1.20-3.40) 11/03/23 Monocytes # (Auto) 0.65 K/uL (0.11-0.59) H 11/03/23 Eosinophils # (Auto) 0.02 K/uL (0.00-0.50) 11/03/23 Basophils # (Auto) 0.01 K/uL (0.00-0.20) 11/03/23 Immature Granulocyte # (Auto) 0.02 K/uL (0.01-0.20) 4 Red Blood Cell Morphology Unremarkable 11/03/23 Na 136 mmol/L (136-145) 11/04/23 K 4.2 mmol/L (3.5-5.1) 11/04/23 Cl 108 mmol/L (98-107) H 11/04/23 CO2 24 mmol/L (21-32) 11/04/23 Anion Gap 4 (3-11) 11/04/23 BUN 16 mg/dl (6-23) 11/04/23 Creatinine 0.53 mg/dl (0.6-1.2) L 11/04/23 Estimated GFR ( Amer) 119.6 ml/min 11/04/23 Estimated GFR (Non-Af Amer) 103.2 ml/min 11/04/23 BUN/Creatinine Ratio 30.2 (10-20) H 11/04/23 Glu 130 mg/dl (70-99(Fasting)) H 11/04/23 Ca 8.2 mg/dl (8.6-10.3) L 11/04/23 Phosphorus Level 2.3 mg/dl (2.5-4.9) L 11/04/23 Mg 1.9 mg/dl (1.7-2.4) 11/04/23 04:26 Calcium Level 8.2 mg/dl (8.6-10.3) L 11/04/23 04:26 Ionized Calcium 1.17 mmol/L (1.12-1.32) 11/03/23 22:35 Diagnostic Findings (Past 24 Hours) Abdomen/Pelvis CTA 11/03/23 22:05 Exam(s): CTA ABDOMEN + PELVIS With Contrast IV Amt: 114 ML EXAM: CT Angiography Abdomen and Pelvis With Intravenous Contrast CLINICAL HISTORY: Reason for exam: eval for retroperitoneal bleed. TECHNIQUE: Axial computed tomographic angiography images of the abdomen and pelvis with intravenous contrast. CTDI is 76.4 mGy and DLP is 1289.87 mGy-cm. Automated exposure control was utilized for the study. A dose lowering technique was utilized adhering to the principles of ALARA. MIP reconstructed images were created and reviewed. CONTRAST: Patient received 114 ML of IV contrast COMPARISON: No relevant prior studies available. FINDINGS: VASCULATURE: Aorta: Mild aortobiiliac atherosclerotic calcifications. No aneurysm or dissection. Celiac trunk and mesenteric arteries: No acute findings. No occlusion or significant stenosis. Renal arteries: Moderate stenosis within the proximal right renal artery. None on the left. Iliac arteries: Mild atherosclerotic calcifications. No occlusion or significant stenosis. Small amount of fat stranding around the right common femoral artery potentially related to access attempt. Lung bases: Atelectasis at the lung bases. ABDOMEN: Liver: Unremarkable. No mass. Gallbladder and bile ducts: Cholecystectomy. No ductal dilation. Pancreas: Unremarkable. No ductal dilation. No mass. Spleen: Unremarkable. No splenomegaly. Adrenals: Unremarkable. No mass. Kidneys and ureters: Unremarkable. No hydronephrosis. No solid mass. Stomach and bowel: Colonic diverticulosis without diverticulitis. Moderate stool within the right hemicolon. No bowel obstruction. No inflammatory changes. PELVIS: Appendix: No findings to suggest acute appendicitis. Bladder: Unremarkable. No mass. Reproductive: Unremarkable as visualized. ABDOMEN and PELVIS: Intraperitoneal space: Unremarkable. No significant fluid collection. No free air. Retroperitoneal space: No retroperitoneal hematoma. Bones/joints: No acute fracture. No dislocation. Soft tissues: Unremarkable. Lymph nodes: Unremarkable. No enlarged lymph nodes. IMPRESSION: 1. No retroperitoneal hematoma. 2. Colonic diverticulosis without diverticulitis. 3. Moderate stool within the right hemicolon. 4. Atelectasis at the lung bases. Electronically signed by: Elvin Wise MD 11/03/23 23:56 PM I & O Totals 24 Hours 11/03/23 11/04/23 11/05/23 06:59 06:59 06:59 Intake Total 1452.692 / 8293.522 9712.285 / 4155.285 300 / 300 Balance 1452.692 / 9615.074 8345.285 / 4155.285 300 / 300 Cumulative 11/01/23 07:29 thru 11/04/23 08:00 Intake Total 5907.977 Balance 5907.977 RT Ventilator Mngmt (Last Documented) Ventilator Ordered Settings Respiratory Rate 0 11/04/23 07:30 Ventilator - PT Measurements Respiratory Rate 0 End-Tidal CO2 9 Coding Level of Care Code 79037 SUB INP/OBS CARE 3/50MIN Diagnoses Chronic back pain M54.9; G89.29 Muscle spasm M62.838 GERD (gastroesophageal reflux disease) K21.9 Accidental overdose T50.901A Coronary artery disease I25.10 Depression F32.9 Dyslipidemia E78.5 Hypertension I10
[2023-11-04] MEDS ORDERED: GABAPENTIN 300 MG CAP PO SCH (09:15)
[2023-11-04] MEDS ORDERED: CALCIUM 600MG + VIT D 400 IU TAB PO SCH (09:15)
--- NOTE | 2023-11-04 11:23 | Cardiology Progress Note ---
Date of Service November 04, 2023 Assessment & Plan (1) Coronary artery disease: Plan: Post PCI with 2 JETT to LAD Inferior STEMI 12/2020 with JETT to RCA 2. Iatrogenic diagonal dissection/occlusiontroponin peaked, chest pain free 3. Preserved LV functionsmall apical wall motion abnormality 4. Anemiastable hemoglobin. No signs of RP bleed. 5. Small pericardial effusionno evidence of tamponade 6. Chronic pain Chest pain-free today. Troponin has down trended. Blood pressure improved No evidence of active bleeding. Minimal congestion on exam. Overall no evidence of ongoing ischemia and LV function remains preserved. Electrically stable. Suspect transient hypotension related to medication. Continue DAPT with aspirin, Brilinta Continue Ranexa. Prior metoprolol, Imdur on hold. Continue statin No additional narcotics Resume gabapentin, duloxetine Can transfer back to telemetry today. Up walking in [place] this afternoon. If remains stable possible discharge late afternoon versus tomorrow a.m. Admission and Anticipated Discharge Date Admission Date: November 02, 2023 Subjective Patient feeling much better yesterday afternoon. Borderline blood pressures responded to IV fluids. Last night became acutely hypotensive down to 60s requiring phenylephrine. Mentation depressed responded to Narcan x 2. Phenylephrine weaned off this morning. Hemoglobin down to 8.[address] abdomen/pelvis without RP bleed. This morning denies any chest pain. Repeat echo reviewedagain shows small pericardial fusion without evidence of tamponade. Preserved LV function. Review of Systems Review of Systems: All systems reviewed & are unremarkable except as noted in HPI & below Physical Exam Physical Exam: General: Comfortable HEENT: Sclerae anicteric Lungs: Clear to auscultation bilaterally, few crackles at bases Cardiac: Regular rate and rhythm, no murmurs. Vascular: Right radial artery access site with no ecchymosis, hematoma. 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 No back tenderness Extremities: Well perfused, no peripheral edema Neuro: Nonfocal Psych: Alert orient x3, normal affect and mood Results & Data Vital Signs (Past 12 Hours) Vital Signs Temp Pulse Resp BP Pulse Ox 11/04/23 09:04 115/71 11/04/23 09:04 74 23 92 11/04/23 08:30 85 18 11/04/23 08:00 77 18 91 11/04/23 08:00 130/74 11/04/23 07:46 81 15 93 11/04/23 07:46 108/67 11/04/23 07:40 110 H 11/04/23 07:38 65 11/04/23 07:30 76 0 L 78 L 11/04/23 07:15 66 18 92 11/04/23 07:15 116/74 11/04/23 07:00 115/72 11/04/23 07:00 63 18 94 11/04/23 06:45 106/67 11/04/23 06:45 63 16 96 11/04/23 06:30 61 16 96 11/04/23 06:30 107/68 11/04/23 06:16 60 17 93 11/04/23 06:16 106/65 11/04/23 06:01 58 L 13 90 11/04/23 06:01 129/69 11/04/23 05:45 109/68 11/04/23 05:45 61 17 95 11/04/23 05:00 107/67 11/04/23 05:00 56 L 16 97 11/04/23 04:30 99/61 L 11/04/23 04:30 58 L 14 92 11/04/23 04:00 110/65 11/04/23 04:00 56 L 19 95 11/04/23 03:31 59 L 23 93 11/04/23 03:31 105/75 11/04/23 03:13 97.7 F 11/04/23 03:00 54 L 12 100 11/04/23 03:00 115/66 11/04/23 02:00 108/69 11/04/23 02:00 56 L 0 L 100 11/04/23 01:30 96/69 L 11/04/23 01:30 56 L 16 94 11/04/23 01:00 107/66 11/04/23 01:00 56 L 17 96 11/04/23 00:32 74 27 H 11/04/23 00:32 103/73 11/04/23 00:00 58 L 11/04/23 00:00 97/64 L 11/04/23 00:00 58 L 17 93 11/03/23 23:36 97.7 F 11/03/23 23:30 99/74 L 11/03/23 23:30 55 L 16 93 PG Care Time/CCT Total # of Minutes Spent Total Time Spent with Patient: Total time spent is greater than 50% in coordination of care (as documented) at patient's floor/unit and/or counseling patient: Coding Level of Care Code 93827 SUB INP/OBS CARE 3/50MIN Diagnoses Coronary artery disease I25.10
[2023-11-04] MEDS ORDERED: ACETAMINOPHEN 325 MG TAB PO PRN (11:25)
[2023-11-04] MEDS: POT PHOSPHATE MONOBASIC W/ SOD TAB PO SCH ×2 (12:39→17:40)
--- NOTE | 2023-11-04 13:22 | XCELERA ---
[id number]
--- NOTE | 2023-11-04 20:51 | Discharge Summary ---
Date of Service November 04, 2023 Admission HPI Per Admitting Provider Mrs. Drake is a very pleasant 58 year old woman with a past medical history significant for inferior STEMI 12/2020, dyslipidemia, hypertension, history of tobacco abuse, GERD, neuropathic pain. Patient seen earlier in the week for evaluation of chest pain. States over the past month or so has been experiencing episodes of suddenly feeling very hot and diaphoretic. Episodes not related to exertion. This past Sunday evening was watching TV with her grandson when she suddenly felt very hot, when she got up to get a cool wash cloth she developed central chest pressure/tightness. Then she had several episodes of vomiting. Symptoms lasted about 90 minutes. Afterwards she felt very tired. The next day she had mild chest tightness for half the day. The past several days has had intermittent chest tightness. Chest discomfort is random, not associated with exertion. Lasts 10-20 minutes in duration before resolving. She has some associated dyspnea. Also admits to dyspnea on exertion past few weeks at least. No orthopnea, PND or edema. No palpitations, lightheadedness, near syncope or syncope. Symptoms Sunday reminiscent of prior angina. Specialty Data Cardiology Summary: 1. Multivessel coronary artery disease - heavily calcified, 50% ostial LAD (eccentric 50% by IVUS), sequential 70% early-mid LAD and 90% mid LAD at bifurcation with D2 50% mid circumflex widely patent mid RCA stent. 50% ostial RPDA 2. Normal intracardiac filling pressure 3. Successful PCI of proximal to mid LAD extending across takeoff of D2 with 2 overlapping drug-eluting stents (2.75 x 22, 2.5 x 26 mm Costa; postdilated with 3.0 NC). Discharge Data Procedures Performed Operation Date: 11/02/23 17:15 Actual Procedures p Cineradiography w/Routine Exam - Frank Merino MD s Ultrasound Vascular Access - Frank Merino MD s Placement Art Occlusive Device - Frank Merino MD Hospital Course (1) Coronary artery disease: Post PCI with 2 JETT to LAD Inferior STEMI 12/2020 with JETT to RCA 2. Iatrogenic diagonal dissection/occlusiontroponin peaked, chest pain free 3. Preserved LV functionsmall apical wall motion abnormality 4. Anemiastable hemoglobin. No signs of RP bleed. 5. Small pericardial effusionno evidence of tamponade 6. Chronic pain On 11/02/2023 patient underwent repeat coronary angiography via right radial artery. She was found to have heavily calcified, severe diffuse proximal mid LAD disease up to 90+% just after bifurcation with second diagonal. She underwent complex PCI requiring shockwave lithotripsy with placement of 2 overlapping JETT from proximal to mid LAD. Post procedure there was some stenosis in jailed D2 but THOMAS-3 flow. Later that evening patient developed severe chest pain, diaphoresis/nausea and dynamic ST changes. Urgent repeat cardiac catheterization from right common femoral artery revealed dissected/subtotally occluded D2. Attempt made to intervene on D2 but unable to pass balloon across stent struts into distal vessel. Decision to medically manage branch vessel disease. Was admitted to telemetry on Integrilin/nitroglycerin infusion. Initially had severe chest pain requiring repeated morphine. On hospital day 2 repeat echo showed preserved LV function with mild apical wall motion abnormality and new small pericardial effusion without signs of tamponade. HS TropI eventually pe aked at 17,000. Also with new anemia, hemoglobin down to 8.5. Later in hospital day 2 had decreased mental status and hypotension to 60s frequently requiring phenylephrine. Ecchymosis at right BIRDCAGE ASSEMBLER access site but no evidence of RP bleed on CT. Repeat echo again showed small pericardial fusion without evidence of tamponade. Patient was treated with 2 doses of Narcan and had improvement in mental status and blood pressures. On hospital day 3 chest pain-free, remained hemodynamically and electrically stable and discharged home on DAPT with aspirin, ticagrelor. Discharged on new colchicine, long-term switch to daily colchicine for CAD prevention. Prior Imdur discontinued. Encouraged Tylenol for pain control and avoidance of home oxycodone/muscle relaxers while recovering from hospital course. Follow-up with me in 1 to 2 weeks. Discharge Instructions Home Medications duloxetine 60 mg capsule,delayed release 60 mg PO BID 01/10/21 [History Confirmed 11/02/23] gabapentin 300 mg capsule 300 mg PO TID 01/10/21 [History Confirmed 11/02/23] oxycodone-acetaminophen 10 mg-325 mg tablet 1 tab PO TID PRN Pain, Severe 01/10/21 [History Confirmed 11/02/23] pantoprazole 40 mg tablet,delayed release 40 mg PO DAILY 01/10/21 [History Confirmed 11/02/23] tizanidine 4 mg tablet 4 mg PO TID PRN ud 01/10/21 [History Confirmed 11/02/23] aspirin 81 mg tablet,delayed release 81 mg PO QAM 30 days #30 tabs 01/12/21 [Rx Confirmed 11/02/23] metoprolol tartrate 25 mg tablet 25 mg PO BID 30 days #60 tabs 01/12/21 [Rx C onfirmed 11/02/23] rosuvastatin 20 mg tablet (Crestor) 40 mg (2 x 20 mg) PO DAILY 30 days #60 tabs 01/12/21 [Rx Confirmed 11/02/23] ticagrelor 90 mg tablet (Brilinta) 90 mg PO BID 30 days #60 tabs 01/12/21 [Rx Confirmed 11/02/23] methocarbamol 750 mg tablet 1,500 mg PO HS ud 09/08/21 [History Confirmed 11/02/23] ranolazine 500 mg tablet,extended release,12 hr (Ranexa) 500 mg PO BID #180 tabs 05/18/22 [Rx Confirmed 11/02/23] calcium 600 mg-D3 800 unit-mag11 50 hb-qehy-unxlqa-sola-s.borat tablet (Caltrate 600-D Plus Minerals) 1 tab PO BID 30 days #60 tabs 11/04/23 [Rx] colchicine 0.6 mg tablet (Colcrys) 0.6 mg PO BID #60 tabs 11/04/23 [Rx] Coding Level of Care Code 74543 IN/OBS DISCH 30 MIN/LESS Diagnoses Coronary artery disease I25.10
== END 2023-11-04 18:53 | disposition home or self-care (01) | DRG 322 ==
LOC: CC 09:47 → 1E 09:47

== ENCOUNTER 2023-11-26 16:13 | Observation (INO) ==
--- NOTE | 2023-11-26 16:42 | Emergency Department Note ---
Impression & Plan Acute dyspnea ADMIT ED Provider Note HPI: History obtained from patient. The patient is a very pleasant 58-year-old female with history of coronary artery disease, status post drug-eluting stent placement x 2 on 11/02/[address] Merino of interventional cardiology, presents the emergency department today from the cardiology office over concern for shortness of breath and chest pain. Patient states that she has had the symptoms over the past 3 days. Patient states that her chest pain worsens with exertion, she states it does seem to improve at rest. Patient states that she feels a constant sensation of shortness of breath. Patient was seen today in the office by Dr. Merino sent to the ED for further evaluation and admission. On my initial assessment here in the ED the patient is conversational, she appears to be in no acute distress, she states that her chest pain is "mild". Patient is saturating well on room air on arrival, heart rate is within normal limits, blood pressure is 145/106 on arrival. ROS: - Per HPI Differential Diagnosis: Acute coronary syndrome, pulmonary embolism, pneumonia, pulmonary edema/CHF exacerbation, amongst other potential pathologies. *Outpatient medications and allergy history reviewed. 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 Lab work shows no leukocytosis, hemoglobin is stable at 11.3, platelet count is normal, CMP shows mild hypokalemia 3.0 which was ordered for oral repletion. Initial high-sensitivity troponin level is mildly elevated at 19.9 which is improved from previous levels. EKG per my interpretation shows normal sinus rhythm without any acute ischemic changes, there do appear to be some T wave inversions in the lateral leads in comparison to previous EKG. No evidence of ST elevation [place]. Given the patient's dyspnea without obvious source and recent hospitalization, CT angiography of the chest was obtained and there is no evidence of pulmonary embolism. Patient was given IV morphine and IV Zofran for her symptoms with good improvement. Given the patient's recent history in addition to chest pain, I discussed the presentation with the on-call hospitalist, Dr. Eubanks, and the patient was placed for admission in stable condition for cardiology consultation and further care. Consultants/Discussions held with other healthcare providers: -Hospitalist, Dr. Eubanks Disposition discussion held by myself with: -Patient Diagnosis: 1. Dyspnea, acute, nonspecific 2. History of ACS, status post stent 3. Chest discomfort, acute Disposition: Admission Miguel Zepeda DO Emergency Medicine Past Med/Surg History Medical History (Updated 11/26/23 @ 23:09 by Miguel Zepead DO) Coronary artery disease GERD (gastroesophageal reflux disease) Peripheral neuropathy Muscle spasm Depression STEMI (ST elevation myocardial infarction) Hypertension Dyslipidemia ACS (acute coronary syndrome) Chest pain Surgical History History of hysterectomy History of cholecystectomy Family History Other Hypertension Social History Smoking Status: Former smoker Tobacco Type: Cigarettes Second Hand Exposure: No; Do You Dip or Chew Tobacco: No; Hx Alcohol Use: Yes Hx Substance Use: No Preferred Language: Montserratian Communication Ability: Effective Beliefs That Will Affect Care: None Current Living Situation: Spouse Feels Safe at Home: Yes Assistive Devices: None Allergies Allergies Allergy/AdvReac Type Severity Reaction Status Date / Time lisinopril AdvReac Unknown Cough Verified 11/26/23 15:02 Home Meds Home Medications Medication Instructions Recorded Confirmed duloxetine 60 mg capsule,delayed 60 mg PO BID 01/10/21 11/26/23 release gabapentin 300 mg capsule 300 mg PO QAM 01/10/21 11/26/23 oxycodone-acetaminophen 10 mg-325 1 tab PO QID PRN Pain, Severe 01/10/21 11/26/23 mg tablet tizanidine 4 mg tablet 4 mg PO TID PRN Muscle Spasm 01/10/21 11/26/23 colchicine 0.6 mg tablet (Colcrys) 0.6 mg PO BID 11/26/23 11/26/23 diphenhydramine HCl 25 mg tablet 50 mg PO HS PRN Sleep 11/26/23 11/26/23 (Sleep Aid (diphenhydramine)) ranolazine 500 mg tablet,extended 500 mg PO BID 11/26/23 11/26/23 release,12 hr Previous Rx's Medication Instructions Recorded aspirin 81 mg tablet,delayed 81 mg PO QAM 30 days #30 tabs 01/12/21 release metoprolol tartrate 25 mg tablet 25 mg PO BID 30 days #60 tabs 01/12/21 rosuvastatin 20 mg tablet (Crestor) 40 mg (2 x 20 mg) PO DAILY 30 days 01/12/21 #60 tabs ticagrelor 90 mg tablet (Brilinta) 90 mg PO BID 30 days #60 tabs 01/12/21 calcium 600 mg-D3 800 unit-mag11 1 tab PO BID 30 days #60 tabs 11/04/23 50 az-wwmx-wnhbgr-sola-s.borat tablet (Caltrate 600-D Plus Minerals) Results & Data (ED) Vital Signs Vital Signs - 24 hr 11/26/23 16:16 11/26/23 16:25 11/26/23 16:30 Temperature 36.9 C Temperature Source Temporal Artery Scan Pulse Rate 86 74 73 Pulse Rate [Apical] Pulse Rhythm Regular Pulse Rhythm [Apical] Pulse Strength [Apical] Respiratory Rate 19 19 Respiratory Effort / Characteristics Non-Labored Spontaneous Respiratory Depth Normal Respiratory Pattern Regular Blood Pressure 163/88 H Blood Pressure [Right Arm] Blood Pressure Mean 113 Blood Pressure Mean [Right Arm] Pulse Oximetry 96 98 Oxygen Delivery Method Room Air Room Air Sepsis Recent Fever Within 48 Hours No Sepsis New/Unexplained Change in Mental Status No Sepsis Action Taken by Nursing No Action Required 11/26/23 16:40 11/26/23 17:59 Temperature Temperature Source Pulse Rate Pulse Rate [Apical] 68 Pulse Rhythm Pulse Rhythm [Apical] Regular Pulse Strength [Apical] Normal Respiratory Rate 19 Respiratory Effort / Characteristics Non-Labored Spontaneous Respiratory Depth Normal Respiratory Pattern Blood Pressure Blood Pressure [Right Arm] 145/106 H 142/89 H Blood Pressure Mean Blood Pressure Mean [Right Arm] 119 106 Pulse Oximetry 94 Oxygen Delivery Method Room Air Sepsis Recent Fever Within 48 Hours Sepsis New/Unexplained Change in Mental Status Sepsis Action Taken by Nursing Laboratory Data 11/26/23 Unknown 11/26/23 Unknown Administered Medications Nitroglycerin (Nitroglycerin 2% Ointment 30gm Tube) 0.5 inch EXT Q6H ANNIE Stop: 12/26/23 22:14 Last Admin: 11/26/23 22:32 Dose: 0.5 inch Documented By: LEONIDAS Discontinued Medications Sodium Chloride (Nss) 500 mls @ 999 mls/hr IV .Q31M ONE Stop: 11/26/23 18:15 Last Infusion: 11/26/23 18:49 Dose: Infused Documented By: Admin: 11/26/23 17:54 Dose: 999 mls/hr Documented By: LEONIDAS Ioversol (Optiray 320 125ml) 117 ml IV ONCE ONE Stop: 11/26/23 18:16 Last Admin: 11/26/23 18:15 Dose: 117 ml Documented By: DESIRE Morphine Sulfate (Morphine Sulfate 4 Mg/Ml 1 Ml Carp\\Vial) 4 mg IV NOW STA Stop: 11/26/23 17:45 Last Admin: 11/26/23 17:58 Dose: 4 mg Documented By: LEONIDAS Ondansetron HCl (Ondansetron Inj 2 Mg/Ml 2 Ml Vial) 4 mg IV NOW STA Stop: 11/26/23 17:45 Last Admin: 11/26/23 17:56 Dose: 4 mg Documented By: LEONIDAS Potassium Chloride (Potassium Chloride Crtab 20 Meq Tabcr) 40 meq PO NOW STA Stop: 11/26/23 18:27 Last Admin: 11/26/23 18:32 Dose: 40 meq Documented By: CAW Imaging Data Radiologist's Impression: Chest X-Ray 11/26/23 16:15 XR chest 1V portable CLINICAL HISTORY: Chest pain, nonspecific TECHNIQUE: Single frontal radiograph of the chest was obtained. Comparison: Comparison is made to chest radiograph 08/13/2012 FINDINGS: No lines and tubes are seen. The cardiomediastinal silhouette is normal. The lungs are clear. No evidence of pleural effusion or pneumothorax. IMPRESSION: No acute chest disease. ACT 112: Negative or not required by law. Electronically signed by: Link Antonio M.D. 11/26/2023 5:00 PM Chest CTA 11/26/23 17:23 CT angio chest PE protocol CLINICAL HISTORY: PE TECHNIQUE: Multidetector row helical CT of the chest was performed with angiographic protocol. Coronal and sagittal reformations were obtained. Coronal and sagittal MIPS were obtained from the axial data set and were submitted for review. Automated dose lowering techniques and/or adjustment according to patient size were utilized for this exam. CT DOSE: 644.6 mGy.cm Comparison: None available at the time of this dictation. FINDINGS: Lungs and pleura: Normal. Heart and pericardium: Cardiomegaly is seen with biatrial enlargement. Physiologic pericardial fluid is seen without effusion. Vessels: Severe atherosclerotic changes in the aorta and coronary arteries. Mediastinum and parris: Unremarkable. Chest wall and lower neck: Unremarkable. Abdomen: Patient is status post cholecystectomy. Bones: Degenerative changes in the thoracic spine. IMPRESSION: No acute abnormality and in particular no evidence of pulmonary embolus. ACT 112: Negative or not required by law. Electronically signed by: Link Antonio M.D. 11/26/2023 6:39 PM Discharge Plan Visit Data Chief Complaint: Abnormal Labs/Diagnostic Testing Stated Complaint: BLOOD WORK/ADMISSION, DOC REF, ABNORMAL LABS ED Provider: Miguel Zepeda Discharge Problem: Acute dyspnea Discharge Instructions Interventions: ED Discharge Assessment Last Done: 11/26/23 22:32
[2023-11-26 16:59] LABS: Basophils # (auto) 0.02 K/uL (0.00-0.20); Basophils % (auto) 0.4 %; Eosinophils # (auto) 0.06 K/uL (0.00-0.50); Eosinophils % (auto) 1.1 %; Hematocrit (blood only) 33.2 % (37.0-47.0); Hemoglobin 11.3 g/dl (12.0-16.0); Immature Granulocytes # (auto) 0.02 K/uL (0.01-0.20); Immature Granulocytes % (auto) 0.4 %; Lymphocytes # (auto) 1.94 K/uL (1.20-3.40); Lymphocytes % (auto) 35.2 %; Mean Corpuscular Hemoglobin 33.9 pg (25.0-34.0); Mean Corpuscular Volume 99.7 fL (80.0-100.0); Mean Platelet Volume 10.3 fL (9.4-12.4); Monocytes # (auto) 0.66 K/uL (0.11-0.59); Neutrophils # (auto) 2.81 K/uL (1.40-6.50); Neutrophils % (auto) 50.9 %; Platelet Count 209 K/uL (130-400); RDW Coefficient of Variation 15.4 % (11.5-14.5); RDW Standard Deviation 56.8 fL (36.4-46.3); Red Blood Count 3.33 M/uL (4.20-5.40); White Blood Count 5.51 K/ul (4.8-10.8)
--- NOTE | 2023-11-26 17:02 | XRay Report ---
XR chest 1V portable CLINICAL HISTORY: Chest pain, nonspecific TECHNIQUE: Single frontal radiograph of the chest was obtained. Comparison: Comparison is made to chest radiograph 08/13/2012 FINDINGS: No lines and tubes are seen. The cardiomediastinal silhouette is normal. The lungs are clear. No evid ence of pleural effusion or pneumothorax. IMPRESSION: No acute chest disease. ACT 112: Negative or not required by law. Electronically signed by: Link Antonio M.D. 11/26/2023 5:00 PM
[2023-11-26 17:11] LABS: Calcium 9.4 mg/dl (8.6-10.3); Creatinine Clr Calc Pharmacy 80.4 ml/min; Est GFR (African American) 107.3 ml/min; Est GFR (Non-African American) 92.6 ml/min
[2023-11-26 17:17] LABS: Troponin I High Sensitivity 19.9 pg/ml (0-14)
[2023-11-26 17:35] LABS: Partial Thromboplastin Time 27 Seconds (21-31); Prothrombin Time 10.7 Seconds (9.0-12.0)
[2023-11-26 17:43] LABS: Adenovirus PCR Not Detected (NotDetected); Bordetella parapertussis PCR Not Detected (NotDetected); Bordetella pertussis PCR Not Detected (NotDetected); Chlamydia pneumoniae PCR Not Detected (NotDetected); Coronavirus 229E PCR Not Detected (NotDetected); Coronavirus CoV-2 (COVID19)PCR Not Detected (NotDetected); Coronavirus HKU1 PCR Not Detected (NotDetected); Coronavirus NL63 PCR Not Detected (NotDetected); Coronavirus OC43PCR Not Detected (NotDetected); Human Metapneumovirus PCR Not Detected (NotDetected); Influenza A PCR Not Detected (NotDetected); Influenza B PCR Not Detected (NotDetected); Mycoplasma pneumoniae PCR Not Detected (NotDetected); Parainfluenza Virus 1 PCR Not Detected (NotDetected); Parainfluenza Virus 2 PCR Not Detected (NotDetected); Parainfluenza Virus 3 PCR Not Detected (NotDetected); Parainfluenza Virus 4 PCR Not Detected (NotDetected); Respiratory Syncytial VirusPCR Not Detected (NotDetected); Rhinovirus/Enterovirus PCR Not Detected (NotDetected)
[2023-11-26] MEDS: SODIUM CHLORIDE 0.9% 500 ML IV ONE (17:54)
[2023-11-26] MEDS: ONDANSETRON INJ 2 MG/ML 2 ML VIAL IV STA (17:56)
[2023-11-26] MEDS: MoRPHine SULFATE 4 MG/ML 1 ML CARP\\VIAL IV STA (17:58)
[2023-11-26] MEDS: OPTIRAY 320 125ml IV ONE (18:15)
[2023-11-26 18:16] LABS: Albumin Globulin Ratio 1.7 (0.9-2); Albumin Level 4.5 gm/dl (3.4-5.0); Bilirubin,Total 0.5 mg/dl (0.2-1.0); Globulin 2.7 gm/dl (2.5-4.0); Total Protein 7.2 gm/dl (6.0-8.3)
[2023-11-26] MEDS: POTASSIUM CHLORIDE CRTAB 20 MEQ TABCR PO STA (18:32)
--- NOTE | 2023-11-26 18:41 | CT Scan Report ---
CT angio chest PE protocol CLINICAL HISTORY: PE TECHNIQUE: Multidetector row helical CT of the chest was performed with angiographic protocol. Miles l and sagittal reformations were obtained. Coronal and sagittal MIPS were obtained from the axial lowell a set and were submitted for review. Automated dose lowering techniques and/or adjustment according to patient size were utilized for this exam. CT DOSE: 644.6 mGy.cm Comparison: None available at the time of this dictation. FINDINGS: Lungs and pleura: Normal. Heart and pericardium: Cardiomegaly is seen with biatrial enlargement. Physiologic pericardial fluid is seen without effusion. Vessels: Severe atherosclerotic changes in the aorta and coronary arteries. Mediastinum and parris: Unremarkable. Chest wall and lower neck: Unremarkable. Abdomen: Patient is status post cholecystectomy. Bones: Degenerative changes in the thoracic spine. IMPRESSION: No acute abnormality and in particular no evidence of pulmonary embolus. ACT 112: Negative or not required by law. Electronically signed by: Link Antonio M.D. 11/26/2023 6:39 PM
--- NOTE | 2023-11-26 19:01 | History & Physical Report ---
Date of Service November 26, 2023 Assessment & Plan (1) Coronary artery disease: Plan: Intermittent CP and worsening SOB x 1.5 weeks Hx of cardiac cath with complex PCI on 11/02/23 (severe CAD, heavily calcified LAD) Troponin elevated at 19.9-->30.8 on arrival EKG NSR at 78 bpm with notable T wave abnormalities (potential ischemia); QTc 499 CXR NAF Chest CTA without pulmonary emboli Trend troponin q4h x 3 A.m. echocardiogram ordered, pending Per cardiology note, can hold off on heparin infusion unless troponin up-trends overnight Okay to continue DAPT with aspirin, Brilinta Continue metoprolol, Ranexa, and rosuvastatin Cardiology consulted Plan is for cardiac catheterization the morning of 11/27 N.p.o. at midnight A.m. CBC, BMP (2) Hypokalemia: Plan: K 3.0 on arrival Potassium supplementation 40mEq given in ED Recheck a.m. potassium (3) Depression: Plan: Continue duloxetine (4) Chronic back pain: Plan: Continue tizanidine as needed Plan Disposition: Obs -admit to PCU telemetry Full code AHA diet, then n.p.o. at midnight VTE PPx: SCDs (hold heparin for now, and consider adding on if troponin trends up; okay to continue DAPT per cardiology note) History of Present Illness Chief Complaint: Abnormal lab/diagnostic testing Primary Care Provider: Alexis Gutiérrez M.D. Lizbeth is a 58-year-old female with PMH of HTN, dyslipidemia, depression, GERD, tobacco use, accidental overdose, and coronary artery disease. She presented at the behest of Cardiology for worsening SOB at rest and intermittent chest pain. Patient had stents placed on November 02; complex PCI with severe CAD, heavily calcified LAD disease extending across bifurcation. She has been having sharp, intermittent CP both at rest and with exertion since then, as well as chest pressure that can last for hours at a time. Even when the pain resolved, she was still have trouble breathing, and worsening SOB at rest x 1.5 weeks. She does not use supplemental oxygen at home. She endorses that the SOB is positional, and worse when lying flat. She reports she has been taking her aspirin and Brilinta as prescribed, but notes she has been needing muscle relaxers and sleep medication at night. She is often taking Tylenol intermittently for headaches. Per cardiology, plan is for cardiac catheterization at 0700 on the morning of 11/27. Patient is hypertensive at 142/89 at time of admission; vitals otherwise stable. ED course: Morphine 4 mg IV NSS 500 mL IV Potassium chloride 40mEq p.o. Zofran 4 mg IV ROS: Patient presents chills (which have been ongoing), night-sweats (ongoing; due to hot flashes), dizziness, lightheadedness, PRATT, intermittent CP, SOB at rest, dry cough, intermittent left hand finger numbness, and pain in legs (chronic). Patient denies fever, fainting, falling, chest palpitations, left jaw/arm pain or pressure, pleuritic CP, hemoptysis, abdominal pain, N/V/D, or numbness/tingling/redness/swelling in legs. Allergies Allergy/AdvReac Type Severity Reaction Status Date / Time lisinopril AdvReac Unknown Cough Verified 11/26/23 15:02 Home Medications Medication Instructions Recorded Confirmed Type duloxetine 60 mg capsule,delayed 60 mg PO BID 01/10/21 11/26/23 History release gabapentin 300 mg capsule 300 mg PO QAM 01/10/21 11/26/23 History oxycodone-acetaminophen 10 mg-325 1 tab PO QID PRN Pain, Severe 01/10/21 11/26/23 History mg tablet tizanidine 4 mg tablet 4 mg PO TID PRN Muscle Spasm 01/10/21 11/26/23 History aspirin 81 mg tablet,delayed 81 mg PO QAM 30 days #30 tabs 01/12/21 11/26/23 Rx release metoprolol tartrate 25 mg tablet 25 mg PO BID 30 days #60 tabs 01/12/21 11/26/23 Rx rosuvastatin 20 mg tablet (Crestor) 40 mg (2 x 20 mg) PO DAILY 30 days 01/12/21 11/26/23 Rx #60 tabs ticagrelor 90 mg tablet (Brilinta) 90 mg PO BID 30 days #60 tabs 01/12/21 11/26/23 Rx calcium 600 mg-D3 800 unit-mag11 1 tab PO BID 30 days #60 tabs 11/04/23 11/26/23 Rx 50 ex-yxcj-uosxns-sola-s.borat tablet (Caltrate 600-D Plus Minerals) colchicine 0.6 mg tablet (Colcrys) 0.6 mg PO BID 11/26/23 11/26/23 History diphenhydramine HCl 25 mg tablet 50 mg PO HS PRN Sleep 11/26/23 11/26/23 History (Sleep Aid (diphenhydramine)) ranolazine 500 mg tablet,extended 500 mg PO BID 11/26/23 11/26/23 History release,12 hr Past Med/Surg History Medical History (Updated 11/26/23 @ 20:23 by Pollo Gage PA-C) Coronary artery disease GERD (gastroesophageal reflux disease) Peripheral neuropathy Muscle spasm Depression STEMI (ST elevation myocardial infarction) Hypertension Dyslipidemia ACS (acute coronary syndrome) Chest pain Surgical History History of hysterectomy History of cholecystectomy Family History Other Hypertension Social History Smoking Status: Former smoker Tobacco Type: Cigarettes Second Hand Exposure: No; Do You Dip or Chew Tobacco: No; Hx Alcohol Use: Yes Hx Substance Use: No Preferred Language: Mohawk Communication Ability: Effective Beliefs That Will Affect Care: None Current Living Situation: Spouse Feels Safe at Home: Yes Assistive Devices: None Review of Systems Review of Systems: See HPI above Physical Exam Physical Exam: General: no acute distress; pleasant affect; non-toxic appearing; well- nourished; cooperative HEENT: normocephalic, atraumatic; no scleral icterus; PERRLA w/ EOMs intact; moist mucus membrane; vision and hearing grossly intact Neck: supple; no lymphadenopathy; trachea midline Skin: warm, dry without signs of tenting; no cyanosis; no rashes, bruising, lesions, or erythema noted CV: chest wall NTP; RRR; S1/S2 normal; no murmurs/rubs/gallops; bounding pulses intact and symmetric at radial, DP, and PT Lungs: no acute respiratory distress; symmetrical chest wall expansion; clear breath sounds across all lung valdovinos w/o adventitious sounds; no wheezing ABD: Soft, NTP; BS present; no rebound/guarding; no ascites; no distention MSK: no tics or fasciculations; no edema noted in the LEs b/l, nonerythematous Neuro: A&Ox3; normal mood and affect; fluent speech; no focal deficits; sensation grossly intact in the LEs b/l Results & Data Results & Data Vital Signs (Past 12 Hours) Vital Signs Temp Pulse Pulse Resp BP BP Pulse Ox 11/26/23 17:59 68 19 142/89 H 94 11/26/23 16:40 145/106 H 11/26/23 16:30 73 11/26/23 16:25 74 19 98 11/26/23 16:16 36.9 C 86 19 163/88 H 96 O2 Del Method 11/26/23 17:59 Room Air 11/26/23 16:40 11/26/23 16:30 11/26/23 16:25 Room Air 11/26/23 16:16 Room Air Laboratory Results Abnormal lab results 11/26/23 Range/Units Unknown RBC 3.33 L (4.20-5.40) M/uL Hgb 11.3 L (12.0-16.0) g/dl Hct 33.2 L (37.0-47.0) % RDW Std Deviation 56.8 H (36.4-46.3) fL RDW Coeff of Evan 15.4 H (11.5-14.5) % [place] # (Auto) 0.66 H (0.11-0.59) K/uL Potassium 3.0 L (3.5-5.1) mmol/L BUN/Creatinine Ratio 31.0 H (10-20) Alkaline Phosphatase 140 H (34-104) U/L Troponin I High Sens 19.9 H (0-14) pg/ml Lipase 4 L (11-82) U/L Diagnostic Findings Chest X-Ray 11/26/23 16:15 XR chest 1V portable CLINICAL HISTORY: Chest pain, nonspecific TECHNIQUE: Single frontal radiograph of the chest was obtained. Comparison: Comparison is made to chest radiograph 08/13/2012 FINDINGS: No lines and tubes are seen. The cardiomediastinal silhouette is normal. The lungs are clear. No evidence of pleural effusion or pneumothorax. IMPRESSION: No acute chest disease. ACT 112: Negative or not required by law. Electronically signed by: Link Antonio M.D. 11/26/2023 5:00 PM Chest CTA 11/26/23 17:23 CT angio chest PE protocol CLINICAL HISTORY: PE TECHNIQUE: Multidetector row helical CT of the chest was performed with angiographic protocol. Coronal and sagittal reformations were obtained. Coronal and sagittal MIPS were obtained from the axial data set and were submitted for review. Automated dose lowering techniques and/or adjustment according to patient size were utilized for this exam. CT DOSE: 644.6 mGy.cm Comparison: None available at the time of this dictation. FINDINGS: Lungs and pleura: Normal. Heart and pericardium: Cardiomegaly is seen with biatrial enlargement. Physiologic pericardial fluid is seen without effusion. Vessels: Severe atherosclerotic changes in the aorta and coronary arteries. Mediastinum and parris: Unremarkable. Chest wall and lower neck: Unremarkable. Abdomen: Patient is status post cholecystectomy. Bones: Degenerative changes in the thoracic spine. IMPRESSION: No acute abnormality and in particular no evidence of pulmonary embolus. ACT 112: Negative or not required by law. Electronically signed by: Link Antonio M.D. 11/26/2023 6:39 PM Code Status & VTE Plan Code Status Full code VTE Prophylaxis Plan VTE Prophylaxis will be ordered: Yes PG Care Time/CCT Total # of Minutes Spent Total Time Spent with Patient: Total time spent is greater than 50% in coordination of care (as documented) at patient's floor/unit and/or counseling patient: [place] [address] INT INP/OBS CARE 2/55MIN Patient Type Established History Comprehensive Exam Comprehensive Medical Decision Making Moderate Complexity Diagnoses Coronary artery disease I25.10 Hypokalemia E87.6 Depression F32.9 Chronic back pain M54.9; G89.29
[2023-11-26] MEDS ORDERED: MELATONIN 3 MG TAB PO PRN (19:33)
[2023-11-26 20:43] LABS: Magnesium 1.9 mg/dl (1.7-2.4)
[2023-11-26] MEDS ORDERED: NITROGLYCERIN 2% OINTMENT 30GM TUBE EXT SCH (22:31)
[2023-11-26] MEDS ORDERED: tiZANidine HCL 4 MG TABLET PO PRN (22:31)
[2023-11-26] MEDS ORDERED: ONDANSETRON INJ 2 MG/ML 2 ML VIAL IV PRN (22:31)
[2023-11-26] MEDS: NITROGLYCERIN 2% OINTMENT 30GM TUBE EXT SCH (22:32)
[2023-11-26] MEDS ORDERED: diphenhydrAMINE Capsule 25 MG CAP PO PRN (22:44)
[2023-11-27] MEDS: DULoxetine HCL 60 MG CAP PO SCH (00:35)
[2023-11-27] MEDS: METOPROLOL TARTRATE 25 MG TAB PO SCH (00:35)
[2023-11-27] MEDS: COLCHICINE 0.6 MG TAB PO SCH ×2 (00:36→10:09)
[2023-11-27] MEDS: TICAGRELOR 90 MG TAB PO SCH (00:36)
[2023-11-27] MEDS: RANOLAZINE 500 MG ER TAB PO SCH (00:36)
[2023-11-27] MEDS: ACETAMINOPHEN 325 MG TAB PO PRN (04:11)
[2023-11-27 06:19] LABS: Basophils # (auto) 0.01 K/uL (0.00-0.20); Basophils % (auto) 0.4 %; Eosinophils # (auto) 0.04 K/uL (0.00-0.50); Eosinophils % (auto) 1.5 %; Hematocrit (blood only) 31.4 % (37.0-47.0); Hemoglobin 10.7 g/dl (12.0-16.0); Immature Granulocytes # (auto) 0.01 K/uL (0.01-0.20); Immature Granulocytes % (auto) 0.4 %; Lymphocytes # (auto) 0.75 K/uL (1.20-3.40); Lymphocytes % (auto) 27.7 %; Mean Corpuscular Hemoglobin 34.3 pg (25.0-34.0); Mean Corpuscular Hgb Conc 34.1 g/dL (32.0-36.0); Mean Corpuscular Volume 100.6 fL (80.0-100.0); Mean Platelet Volume 10.2 fL (9.4-12.4); Monocytes # (auto) 0.41 K/uL (0.11-0.59); Monocytes % (auto) 15.1 %; Neutrophils # (auto) 1.49 K/uL (1.40-6.50); Neutrophils % (auto) 54.9 %; Platelet Count 181 K/uL (130-400); RDW Coefficient of Variation 15.9 % (11.5-14.5); RDW Standard Deviation 58.5 fL (36.4-46.3); Red Blood Count 3.12 M/uL (4.20-5.40); White Blood Count 2.71 K/ul (4.8-10.8)
[2023-11-27 06:35] LABS: BUN Creatinine Ratio 26.8 (10-20); Calcium 8.8 mg/dl (8.6-10.3); Creatinine Clr Calc Pharmacy 101.2 ml/min; Est GFR (African American) 117.5 ml/min; Est GFR (Non-African American) 101.3 ml/min; Potassium 3.7 mmol/L (3.5-5.1)
--- NOTE | 2023-11-27 07:01 | Pre Anesthesia Assessment ---
Date of Service November 27, 2023 Pre Sedation Assessment Vital Signs Temp Pulse Pulse Resp BP BP Pulse Ox 11/27/23 06:53 98.2 F 61 18 129/82 94 11/27/23 04:48 98.4 F 64 16 125/60 97 11/27/23 04:20 98.4 F 65 16 122/92 96 11/27/23 01:29 70 11/27/23 00:28 11/27/23 00:28 98.2 F 71 18 109/63 98 11/26/23 23:56 75 11/26/23 22:33 75 19 138/76 95 11/26/23 22:32 95 11/26/23 21:41 75 19 116/76 98 11/26/23 20:29 81 11/26/23 17:59 68 19 142/89 H 94 11/26/23 16:40 145/106 H 11/26/23 16:30 73 11/26/23 16:25 74 19 98 11/26/23 16:16 98.4 F 86 19 163/88 H 96 O2 Del Method 11/27/23 06:53 Room Air 11/27/23 04:48 Room Air 11/27/23 04:20 Room Air 11/27/23 01:29 11/27/23 00:28 Room Air 11/27/23 00:28 Room Air 11/26/23 23:56 11/26/23 22:33 Room Air 11/26/23 22:32 Room Air 11/26/23 21:41 Room Air 11/26/23 20:29 11/26/23 17:59 Room Air 11/26/23 16:40 11/26/23 16:30 11/26/23 16:25 Room Air 11/26/23 16:16 Room Air Cardiovascular + regular rate Respiratory + respiratory effort normal Pre-Sedation Airway Assessment Smoking Status: Former smoker Hx Sleep Apnea: No Hx Difficult Intubation: No Short, Thick Neck: No Thyromental Distance: > or= 3.5 Finger Breadths Oral Cavity: + Dentures Mallampati Class: I ASA: ASA3 NPO Status Date of Last Intake of Fluids: 11/26/23 Time of Last Intake of Fluids: 22:30 Date of Last Intake of Solid Food: 11/26/23 Time of Last Intake of Solid Foods: 22:30 Procedure Planning Contraindications for Sedation: none Current Medications Reviewed: Yes Notes The planned sedation has been discussed with the patient. Informed Consent was obtained. I have identified the patient, determined the appropriateness of sedation and have assessed the patient immediately prior to the procedure. All medicine(s) and interventions are by my order.
[2023-11-27] MEDS: ASPIRIN 81 MG CHEW ONE (07:07)
[2023-11-27] MEDS: fentaNYL citrate PF 100 MCG/2 ML VIAL ONE (07:38)
[2023-11-27] MEDS: niCARdipine HCL INJ 2.5 MG/ML 10 ML AMP ONE (07:38)
[2023-11-27] MEDS: HEPARIN (PORCINE) 1000 UNIT/ML 10 ML (CATH LAB USE ONLY) ONE (07:38)
[2023-11-27] MEDS: MIDAZOLAM HCL 1 MG/ML 2ML VIAL ONE (07:38)
[2023-11-27] MEDS: OPTIRAY 350 ONE (07:39)
[2023-11-27] MEDS: NITROGLYCERIN/D5W 100MCG/ML 20ML SYR ONE (07:39)
--- NOTE | 2023-11-27 07:46 | Post Anesthesia Assessment ---
Date of Service November 27, 2023 Post Sedation Assessment Vital Signs Temp Pulse Pulse Resp BP BP Pulse Ox 11/27/23 06:53 98.2 F 61 18 129/82 94 11/27/23 04:48 98.4 F 64 16 125/60 97 11/27/23 04:20 98.4 F 65 16 122/92 96 11/27/23 01:29 70 11/27/23 00:28 11/27/23 00:28 98.2 F 71 18 109/63 98 11/26/23 23:56 75 11/26/23 22:33 75 19 138/76 95 11/26/23 22:32 95 11/26/23 21:41 75 19 116/76 98 11/26/23 20:29 81 11/26/23 17:59 68 19 142/89 H 94 11/26/23 16:40 145/106 H 11/26/23 16:30 73 11/26/23 16:25 74 19 98 11/26/23 16:16 98.4 F 86 19 163/88 H 96 O2 Del Method 11/27/23 06:53 Room Air 11/27/23 04:48 Room Air 11/27/23 04:20 Room Air 11/27/23 01:29 11/27/23 00:28 Room Air 11/27/23 00:28 Room Air 11/26/23 23:56 11/26/23 22:33 Room Air 11/26/23 22:32 Room Air 11/26/23 21:41 Room Air 11/26/23 20:29 11/26/23 17:59 Room Air 11/26/23 16:40 11/26/23 16:30 11/26/23 16:25 Room Air 11/26/23 16:16 Room Air Recovery Score Activity: Moves 4 extremities Respiration: Deep Breath/Cough Circulation: +/-20% PreAnes Value Consciousness: Fully Awake Oxygen Saturation: O2 needed for >90% Discharge Sedation Level of Care: Fast Track Phase II Post Sedation Plan On clinical assessment, the patient appears to have tolerated the sedation without complications. Patient is recovering as anticipated. Patient will continue to be monitored by nursing and may be discharged when sedation discharge criteria are met per below protocol. Upon Completions of procedure up to 15 minutes continue every 5 minute vital signs and the P.A.R. score; then discharge to a Phase I or Fast Track to Phase II per the following guidelines: * Discharge Patient to appropriate Phase II area if PAR is 8 or greater or return to pre- procedure baseline. The post - procedure orders will be as directed. * If PAR score is less than 8 or not return to pre-procedure baseline then patient will follow Phase I monitoring till PAR is reached for Phase II. The Phase I may be done in procedure room or may call to secure a Phase I area. * If naloxone or flumazenil are used for reversal, hold in Phase I for continued monitoring from when last reversal dose was given for a minimum of 60 minutes or longer pending the nurse and/or physician discretion of patient condition before discharge to Phase II. Please call the Sedation Physician to re-evaluate and complete post-note for discharge to Phase II area. Do NOT discharge from procedure sedation or Phase 1 until post- sedation evaluation note is complete by procedure /sedation MD Sedation Discharge Instructions to be given to the patient at discharge to home.
--- NOTE | 2023-11-27 08:00 | Cardiac Catheterization ---
[facility] Data: Post Anesthesia Nurse Cardiac Status Clinical evaluation leading to the procedure CAD Presenation: Unstable angina Anginal Classification: CCS IV Diagnostic Physicians Name: Frank Merino MD Closure Device Recommendations: Medical Therapy and/or Counseling Cardiac Cath Procedure Full Procedure Date November 27, 2023 Pre-Procedure Diagnosis Pre-Procedure Diagnosis: Angina and CAD AUC Score AUC Score: 7 Post-Procedure Diagnosis Post-Procedure Diagnosis: Moderate CAD Procedure(s) Performed Procedure(s) Performed: Coronary Angiography and Left Heart Cath Cardiac Cath Rn Frank Merino MD Transportation Clerk(s) Gamal Estimated Blood Loss Estimated Blood Loss: 5 Medication(s) Medication(s): Fentanyl, Heparin, Lidocaine 1%, Nicardipine, Nitroglycerin and Versed Summary of Findings Indication: Accelerating angina Access: 6 Fr right radial artery Catheters: [place] Findings: LM -medium caliber, mildly calcified, no significant disease LAD -medium caliber, heavily calcified, 50-60% ostial, proximal to mid stents patent. Angulated/calcified after takeoff of D2 with distal 40% restenosis/underexpansion. 40% latemid stenosis. Distal vessel small and wraps around apex. Medium caliber D2 with 3040% ostial stenosis. Circumflex -medium caliber calcified, diffuse 50% mid segment disease. Gives of a single medium caliber OM with no significant disease. RCA -dominant, medium caliber, heavily calcified, mid RCA stent widely patent, 30% diffuse latemid disease, 30 % right posterior AV branch. PDA with 50% ostial stenosis. LVEDP - 6 Arterial Closure: TR band Summary: 1. Moderate nonobstructive coronary artery disease 50-60% ostial LAD Proximal to mid LAD stents patent with 40% restenosis at distal aspect Previously occluded D2 patent with 30% proximal disease 50% mid circumflex Widely patent mid RCA stent, 50% ostial RPDA 2. Normal intracardiac filling pressure Recommendations: No high risk CAD to explain patient's recent symptoms. Continue DAPT with aspirin, ticagrelor Continued ASCVD risk factor modification Continue antianginal therapy. Resume prior Imdur. Hemodynamics Rest Ao:: 124/76/95 Final Ao: 136/84/129 LV: 115/6 Recommendations Recommendations: Medical Therapy and/or Counseling Specimens Specimens: None Radiation Exposure (mGy) 520 Contrast (mls) 20 Anesthesia Moderate [id number] Procedural Complication(s) None Disposition PCU I attest to the content of the Intraoperative Record and any orders documented therein. Any exceptions are noted below. [facility] Card Cath Procedure Codes Cardiac Catheterization Procedure 1: Cardiovascular Cath Procedures: 94165 Coronaries and LHC (+/-LV) Moderate Sedation Procedure 1: Sedation/Anesthesia: 85749 Mod Sedation by the same physician;Init15 Min Child Age 5 & Up PG Care Time/CCT Total # of Minutes Spent Total Time Spent with Patient: Total time spent is greater than 50% in coordination of care (as documented) at patient's floor/unit and/or counseling patient:
--- NOTE | 2023-11-27 08:09 | Cardiology Progress Note ---
Date of Service November 27, 2023 Assessment & Plan (1) Coronary artery disease: Plan: Post PCI with 2 JETT to LAD, complicated by occlusion of D2 -- D2 open on repeat cath 11/27/2023 Inferior STEMI 12/2020 with JETT to RCA 2. Preserved LV functionsmall apical wall motion abnormality 11/2023 3. Anemiahemoglobin 8.6 post PCI 4. Small pericardial effusionno evidence of tamponade 5. Dyslipidemia 6. Chronic pain Testing reassuring for no ACS or new high risk CAD. Reviewed repeat echo. LV function mildy reduced. Apical wall motion abnormality out of proportion to CAD. Question some component of stress-induced cardiomyopathy on top of CAD. No signs of heart failure on exam or LHC. Recommend maximizing GDMT for cardiomyopathy, continued antianginal therapy and cardiac rehab. Plan: Continue DAPT with aspirin, ticagrelor -- Transition metoprolol tartrate to toprol XL 50mg daily -- Start losartan 25mg daily. Continue Ranexa Can reduce colchicine to 0.6 mg daily Continue current statin -- Repeat echo in 3 months Will re-refer to cardiac rehab Patient can be discharged later today after TR band care. Has scheduled follow-up with me in 1 month Admission and Anticipated Discharge Date Admission Date: November 26, 2023 Subjective Underwent repeat cardiac catheterization this morning. Stable moderate nonobstructive disease. No chest pain post procedure Review of Systems Review of Systems: All systems reviewed & are unremarkable except as noted in HPI & below Physical Exam Physical Exam: General: Comfortable HEENT: Sclerae anicteric Lungs: Clear to auscultation bilaterally, no crackles or wheezes Cardiac: Regular rate and rhythm, no murmurs. Vascular: Right radial artery access site with no ecchymosis, hematoma. TR band in place Abdomen: Soft, nontender Extremities: Well perfused, no peripheral edema Neuro: Nonfocal Psych: Alert orient x3, normal affect and mood Results & Data Vital Signs (Past 12 Hours) Vital Signs Temp Pulse Pulse Resp BP Pulse Ox O2 Del Method 11/27/23 07:45 58 L 16 127/68 95 Room Air 11/27/23 06:53 98.2 F 61 18 129/82 94 Room Air 11/27/23 04:48 98.4 F 64 16 125/60 97 Room Air 11/27/23 04:20 98.4 F 65 16 122/92 96 Room Air 11/27/23 01:29 70 11/27/23 00:28 Room Air 11/27/23 00:28 98.2 F 71 18 109/63 98 Room Air 11/26/23 23:56 75 11/26/23 22:33 75 19 138/76 95 Room Air 11/26/23 22:32 95 Room Air 11/26/23 21:41 75 19 116/76 98 Room Air 11/26/23 20:29 81 PG Care Time/CCT Total # of Minutes Spent Total Time Spent with Patient: Total time spent is greater than 50% in coordination of care (as documented) at patient's floor/unit and/or counseling patient: Coding Level of Care Code 68173 SUB INP/OBS CARE 3/50MIN Diagnoses Coronary artery disease I25.10
[2023-11-27] MEDS: SODIUM CHLORIDE 0.9% 1,000 ML IV SCH (09:00)
--- NOTE | 2023-11-27 09:37 | XCELERA ---
[id number]
[2023-11-27] MEDS: oxyCODONE/ACETAMINOPHEN 10-325 TAB PO PRN (10:07)
[2023-11-27] MEDS: GABAPENTIN 300 MG CAP PO SCH (10:08)
[2023-11-27] MEDS: ROSUVASTATIN CALCIUM 20 MG TAB PO SCH (10:08)
--- NOTE | 2023-11-27 10:13 | Electrocardiogram Report ---
Test Reason : Blood Pressure : / mmHG Vent. Rate : 078 BPM Atrial Rate : 078 BPM P-R Int : 138 ms QRS Dur : 086 ms QT Int : 438 ms P-R-T Axes : 064 080 221 degrees QTc Int : 499 ms Normal sinus rhythm Septal infarct (cited on or before 26-NOV-2023) T wave abnormality, consider inferior ischemia T wave abnormality, consider anterolateral ischemia Abnormal ECG When compared with ECG of 26-NOV-2023 15:33, (unconfirmed) No significant change Confirmed by oTni Tran ([id number]) on 11/27/2023 10:13:13 AM Referred By: Yoav Merino Confirmed By:Toni Tran
[2023-11-27] MEDS: ISOSORBIDE MONO EXTENDED REL 30 MG TABCR PO SCH (10:21)
[2023-11-27] MEDS: ASPIRIN 81 MG ECTAB PO SCH (10:24)
--- NOTE | 2023-11-27 13:39 | Discharge Summary ---
Date of Service November 27, 2023 Admission HPI Per Admitting Provider Lizbeth is a 58-year-old female with PMH of HTN, dyslipidemia, depression, GERD, tobacco use, accidental overdose, and coronary artery disease. She presented at the behest of Cardiology for worsening SOB at rest and intermittent chest pain. Patient had stents placed on November 02; complex PCI with severe CAD, heavily calcified LAD disease extending across bifurcation. She has been having sharp, intermittent CP both at rest and with exertion since then, as well as chest pressure that can last for hours at a time. Even when the pain resolved, she was still have trouble breathing, and worsening SOB at rest x 1.5 weeks. She does not use supplemental oxygen at home. She endorses that the SOB is positional, and worse when lying flat. She reports she has been taking her aspirin and Brilinta as prescribed, but notes she has been needing muscle relaxers and sleep medication at night. She is often taking Tylenol intermittently for headaches. Per cardiology, plan is for cardiac catheterization at 0700 on the morning of 11/27. Patient is hypertensive at 142/89 at time of admission; vitals otherwise stable. ED course: Morphine 4 mg IV NSS 500 mL IV Potassium chloride 40mEq p.o. Zofran 4 mg IV ROS: Patient presents chills (which have been ongoing), night-sweats (ongoing; due to hot flashes), dizziness, lightheadedness, PRATT, intermittent CP, SOB at rest, dry cough, intermittent left hand finger numbness, and pain in legs (chronic). Patient denies fever, fainting, falling, chest palpitations, left jaw/arm pain or pressure, pleuritic CP, hemoptysis, abdominal pain, N/V/D, or numbness/tingling/redness/swelling in legs. Principal Diagnosis CAD Discharge Exam The patient is awake, alert and oriented 3, well developed and well nourished, normocephalic and atraumatic, lying in bed and in no acute distress. HEENT--PERRL, EOMI, mucous membranes and oropharynx mildly dry Neck--supple. No JVD. No bruits. Thyroid normal, trachea midline, no adenopathy. Heart--normal S1 and S2. No murmurs, rubs or gallops. Lungs--clear bilaterally, no respiratory distress, no accessory muscle use. Abdomen--normal bowel sounds and soft. Extremities--no cyanosis or clubbing. No edema. Dermatologic--normal skin turgor, normal color, no abnormal lymph nodes, no rash. Neurologic--cranial nerves II through XII grossly intact. Rheumatologic--normal range of motion. Psychiatric--normal affect. Discharge Data Allergies Allergy/AdvReac Type Severity Reaction Status Date / Time lisinopril AdvReac Unknown Cough Verified 11/26/23 15:02 Consultations 11/26/23 18:49 Consult Cardiology Routine 11/26/23 19:19 ED Decision to Admit Stat Procedures Performed Operation Date: 11/27/23 07:00 Actual Procedures p Cineradiography w/Routine Exam - Frank Merino MD p Cath, Left with Cors and Vent - Frank Merino MD Ordered Studies 11/26/23 17:23 CT angio chest PE protocol Stat 11/27/23 06:45 CL Cath Imgs for PACS use only Urgent Hospital Course (1) Coronary artery disease: Intermittent CP and worsening SOB x 1.5 weeks Hx of cardiac cath with complex PCI on 11/02/23 (severe CAD, heavily calcified LAD) Now Status post PCI with 2 drug-eluting stents Continue dual antiplatelet with aspirin and ticagrelor Metoprolol 50 mg XL daily Losartan 25 mg daily, continue Ranexa Reduce colchicine to 0.6 mg daily by cardiology. (2) Hypokalemia: Replaced (3) Depression: Continue duloxetine (4) Chronic back pain: Continue tizanidine as needed Plan Disposition: Discharge home Full code AHA diet, then n.p.o. at midnight VTE PPx: SCDs (hold heparin for now, and consider adding on if troponin trends up; okay to continue DAPT per cardiology note) Total Time Total Time Spent Total Time Spent (In Minutes): 35 Discharge Plan Discharge Items Patient Disposition: Home - Self-Care Reason For Visit: WORSENING SOB AT REST, INTERMITTENT CP Discharge Diagnosis: Coronary artery disease Activity: Resume your previous activity Non-emergency contact: Primary Care Provider and Construction Sales Manager Call non-emergency contact if: you have any medication questions Follow-up/Referrals: Alexis Gutiérrez M.D. [Primary Care Provider] - Diet: Regular Addtl Attending Provider Instructions: Please follow-up with your PCP and also cardiology Pending Studies at Discharge: No Stand-Alone Forms: My [facility] [address], Smoking Cessation Medications and DC Order Prescriptions: New metoprolol succinate 50 mg Tablet Extended Release 24 Hr 50 mg PO QAM 30 Days Qty: 30 0RF losartan 25 mg Tablet 25 mg PO QAM 30 Days Qty: 30 0RF colchicine [Colcrys] 0.6 mg Tablet 0.6 mg PO DAILY 30 Days Qty: 30 0RF Continued tizanidine 4 mg tablet 4 mg PO TID PRN (Reason: Muscle Spasm) oxycodone-acetaminophen 10-325 mg tablet 1 tab PO QID PRN (Reason: Pain, Severe) gabapentin 300 mg capsule 300 mg PO QAM duloxetine 60 mg capsule,delayed release(DR/EC) 60 mg PO BID rosuvastatin [Crestor] 20 mg Tablet 40 mg PO DAILY 30 Days Qty: 60 3RF Brilinta 90 mg Tablet 90 mg PO BID 30 Days Qty: 60 3RF aspirin 81 mg Tablet,Delayed Release (Dr/Ec) 81 mg PO QAM 30 Days Qty: 30 3RF Caltrate 600-D Plus Minerals 600 mg calcium- 800 unit-50 mg Tablet 1 tab PO BID 30 Days Qty: 60 0RF ranolazine 500 mg Tablet Extended Release 12 Hr 500 mg PO BID diphenhydramine HCl [Sleep Aid (diphenhydramine)] 25 mg Tablet 50 mg PO HS PRN (Reason: Sleep) Discontinued metoprolol tartrate 25 mg Tablet 25 mg PO BID 30 Days Qty: 60 3RF colchicine [Colcrys] 0.6 mg tablet 0.6 mg PO BID Discharge Orders: Discharge Order (Routine); Ordered 11/27/23 Ordered By: Gabby Lopez Admission Data Admit Date/Time: 11/26/23 19:31 Attending Provider: Gabby Lopez Admit Provider: Ralph Eubanks Primary Care Provider: Alexis Gutiérrez Other Providers: Frank Merino; Ralph Eubanks Other Interventions: Discharge Summary Assessment (RN) Last Done: 11/27/23 13:30 Coding Level of Care Code 47910 INP/OBS DISCH >30 MIN Diagnoses Coronary artery disease I25.10 Hypokalemia E87.6 Depression F32.9 Chronic back pain M54.9; G89.29 Time Spent (min) 35
[2023-11-28] MEDS ORDERED: METOPROLOL SUCC 50MG EXT REL TAB PO SCH (09:00)
[2023-11-28] MEDS ORDERED: LOSARTAN POTASSIUM 25 MG TAB PO SCH (09:00)
== END 2023-11-27 14:17 | disposition home or self-care (01) ==
LOC: ED 16:13 → EDINP 16:13 → SUATTDRO 19:31 → 2E 22:32